=== PATIENT | female | born 1940 | race Caucasian/White ===

== ENCOUNTER → 2016-11-23 | Outpatient (CLI) | payer OTHER ==
[~2016-11-23] MED LIST: AMLO-110 PO; APR25 PO; ASCO10003 PO; ASPI81TA28 PO; CALC-5 PO; CLOP1TAB15 PO; CRAN1CAP15 PO; ISOS30TA3 PO; LACT1CAP6 PO; LOSA50TA6 PO; METO25TA56 PO; MULT-506 PO; NTRGSL/4 UT; OMEG12006 PO; ROSU40TA PO; TYLOTC500 PO
[2016-11-23 17:02] LABS: BLOOD UREA NITROGEN 16 mg/dl (7-18); BUN/CREATININE RATIO 14.2 (10-20); CALCIUM 9.6 mg/dl (8.5-10.1); CARBON DIOXIDE 30 mmol/L (21-32); CHLORIDE 102 mmol/L (98-107); GLUCOSE 160 mg/dl (70-99); POTASSIUM 3.7 mmol/L (3.5-5.1); SODIUM 141 mmol/L (136-145)
== END | disposition home or self-care (01) ==
LOC: C.LABBFT 16:49
PROVIDERS: ATTEND Internal Medicine Cardiovascular Disease
DX: N28.9 Disorder of kidney and ureter, unspecified (principal)

== ENCOUNTER → 2017-02-15 | Outpatient (CLI) | payer OTHER | END | disposition home or self-care (01) | LOC: C.LABSPEC 13:15 | PROVIDERS: ATTEND Physician Assistant Medical | DX: A04.7 Enterocolitis due to Clostridium difficile (principal) ==

== ENCOUNTER → 2017-02-18 | Outpatient (CLI) | payer OTHER ==
--- NOTE | 2017-02-18 13:11 | MAMMOGRAPHY REPORT ---
BILATERAL DIGITAL SCREENING MAMMOGRAM WITH CAD: 02/18/2017 CLINICAL HISTORY: Routine screening. Patient has no complaints. TECHNIQUE: Current study was also evaluated with a Computer Aided Detection (CAD) system. Bilatera l CC and MLO views were obtained. COMPARISON: Comparison is made to exams dated: 02/16/2016 mammogram, 02/13/2015 mammogram, 02/01/2014 mammogram, 01/29/2013 mammogram, 01/24/2012 mammogram, and 01/20/2011 mammogram - [facility] enter. BREAST COMPOSITION: The tissue of both breasts is almost entirely fatty. FINDINGS: No suspicious masses, calcifications, or areas of architectural distortion are noted in e ither breast. There has been no significant interval change compared to prior exams. Scattered bilat eral benign-appearing calcifications are not significantly changed. IMPRESSION: ACR BI-RADS CATEGORY 2: BENIGN There is no mammographic evidence of malignancy. A 1 year screening mammogram is recommended. The p atient will receive written notification of the results. Approximately 10% of breast cancers are not detected with mammography. A negative mammographic repor t should not delay biopsy if a clinically suggestive mass is present. Deisy Combs M.D. ah/:02/18/2017 12:23:31 E [employer] Strategist: Georgina MARTÍNEZ(Mckay)(Juan Manuel)(DAKSHA), [facility] letter sent: Normal 1/2 BI-RADS Code: ACR BI-RADS Category 2: Benign
== END | disposition home or self-care (01) ==
LOC: C.MAMM 10:25
PROVIDERS: ATTEND Internal Medicine
DX: Z12.31 Encounter for screening mammogram for malignant neoplasm of breast (principal)

== ENCOUNTER → 2017-03-01 | Outpatient (CLI) | payer OTHER | END | disposition home or self-care (01) | LOC: C.LABSPEC 12:33 | PROVIDERS: ATTEND Internal Medicine | DX: A04.7 Enterocolitis due to Clostridium difficile (principal) ==

== ENCOUNTER → 2017-03-17 | Outpatient (CLI) | payer OTHER ==
[2017-03-17 12:23] LABS: BASO ABS # 0.06 K/uL (0-0.2); COMPLETE YES; EOS % 4.3 %; HEMATOCRIT 41.7 % (37-47); IG% 0.2 %; LYMPH % 23.8 %; LYMPH ABS # 1.48 K/uL (1.2-3.4); MEAN CELL VOLUME 95.2 fL (80-100); MEAN CORPUSCULAR HEMOGLOBIN 31.3 pg (25-34); MEAN CORPUSCULAR HGB CONC 32.9 g/dl (32-36); MEAN PLATELET VOLUME 10.8 fL (7.4-10.4); MONO % 8.8 %; NEUT % 61.9 %; PLATELET COUNT 175 K/uL (130-400); RED BLOOD COUNT 4.38 M/uL (4.2-5.4); WHITE BLOOD COUNT 6.22 K/uL (4.8-10.8)
[2017-03-17 13:07] LABS: ESTIMATED AVERAGE GLUCOSE 128 mg/dl; HA1C FLAG Normal (Normal)
[2017-03-17 13:28] LABS: URINE APPEARANCE CLEAR (CLEAR); URINE BILIRUBIN NEG (NEG); URINE COLOR YELLOW; URINE NITRITE NEG (NEG); URINE SPECIFIC GRAVITY 1.024 (1.000-1.030); UROBILINOGEN NEG (NEG); ZZUR CULT IF INDIC CLEAN CATCH NO
[2017-03-17 13:29] LABS: MANUAL MICROSCOPIC REQUIRED? NO; REVIEW REQ? NO
[2017-03-17 13:45] LABS: ALB/GLOB RATIO 1.2 (0.9-2); ALKALINE PHOSPHATASE 57 U/L (45-117); ALT/SGPT 22 U/L (12-78); BLOOD UREA NITROGEN 15 mg/dl (7-18); CALCIUM 9.1 mg/dl (8.5-10.1); CARBON DIOXIDE 31 mmol/L (21-32); CHLORIDE 108 mmol/L (98-107); CHOLESTEROL 150 mg/dl (0-200); CHOLESTEROL/HDL RATIO 2.4; CREATININE 0.87 mg/dl (0.60-1.20); GLUCOSE 98 mg/dl (70-99); HDL CHOLESTEROL 63 mg/dl; POTASSIUM 3.9 mmol/L (3.5-5.1); SODIUM 142 mmol/L (136-145)
[2017-03-17 14:00] LABS: AST/SGOT 17 U/L (15-37); LDL CHOLESTEROL CALCULATED 64 mg/dl; TRIGLYCERIDES 115 mg/dl (0-150); VERY LOW DENSITY LIPOPROT CALC 23 mg/dl
== END | disposition home or self-care (01) ==
LOC: C.LABBFT 09:17
PROVIDERS: ATTEND Internal Medicine
DX: I25.10 Atherosclerotic heart disease of native coronary artery without angina pectoris (principal); R73.9 Hyperglycemia, unspecified; E78.5 Hyperlipidemia, unspecified; M85.80 Other specified disorders of bone density and structure, unspecified site

== ENCOUNTER → 2017-04-29 | Outpatient (CLI) | payer OTHER ==
--- NOTE | 2017-04-29 10:15 | DIAGNOSTIC IMAGING REPORT ---
BILATERAL CAROTID DOPPLER STUDY HISTORY: Dizziness I65.29 Occlusion and stenosis of unspecified carotid artery COMPARISON: 04/22/2016 TECHNIQUE: Real-time, grayscale, and color Doppler sonography of the carotid arteries was performed. Imaging reviewed in the transverse and longitudinal planes. All measurements were calculated based on NASCET criteria. FINDINGS: Antegrade flow is seen in the bilateral vertebral arteries. The brachial pressures are hemodynamically similar. Moderate to significant plaque formation primarily of the left carotid system. The peak systolic velocity within the right ICA is 78. The right systolic ratio is 1.2. The peak systolic velocity within the left ICA is 99. The left systolic ratio is 1.3 Increased velocities within the left external carotid artery similar to that of the prior exam.. IMPRESSION: No hemodynamically significant stenosis seen within the carotid arteries. Moderate stenosis left external carotid artery unchanged from the prior study. Electronically signed by: Onel Garcia M.D. 04/29/2017 10:14 AM Dictated Date/Time: 04/29/2017 10:11 AM
== END | disposition home or self-care (01) ==
LOC: C.ULTR 09:33
PROVIDERS: ATTEND Surgery
DX: I65.22 Occlusion and stenosis of left carotid artery (principal)

== ENCOUNTER → 2017-06-09 | Outpatient (CLI) | payer OTHER | END | disposition home or self-care (01) | LOC: C.LABBFT 10:05 | PROVIDERS: ATTEND Physician Assistant Medical | DX: N39.0 Urinary tract infection, site not specified (principal) ==

== ENCOUNTER → 2017-10-03 | Outpatient (CLI) | payer OTHER ==
[2017-10-03 12:54] LABS: ESTIMATED AVERAGE GLUCOSE 123 mg/dl; HA1C FLAG Normal (Normal)
== END | disposition home or self-care (01) ==
LOC: C.LABBFT 09:02
PROVIDERS: ATTEND Internal Medicine
DX: R73.03 Prediabetes (principal)

== ENCOUNTER → 2017-12-13 | Outpatient (CLI) | payer OTHER | END | disposition home or self-care (01) | LOC: C.PATHSPEC 16:32 | PROVIDERS: ATTEND Dermatology | DX: L57.0 Actinic keratosis (principal); L57.8 Other skin changes due to chronic exposure to nonionizing radiation ==

== ENCOUNTER → 2018-01-16 | Outpatient (CLI) | payer OTHER ==
[~2018-01-16] MED LIST changes: +HYDR-4716 PO
== END | disposition home or self-care (01) ==
LOC: C.LABBFT 10:29
PROVIDERS: ATTEND Physician Assistant Medical
DX: R39.9 Unspecified symptoms and signs involving the genitourinary system (principal)

== ENCOUNTER 2018-01-18 17:34 | Emergency (ER) | payer OTHER ==
[~2018-01-18] VITALS: Ht 160 cm; Wt 67.0 kg
[~2018-01-18 17:34] MED LIST changes: -HYDR-4716 PO
[2018-01-18 17:49] VITALS: TEMP 36.5; Ht 160 cm; Wt 67.0 kg
--- NOTE | 2018-01-18 18:12 | EMERGENCY ROOM VISIT NOTE ---
History Report prepared by Cass: Rodger Greer Under the Supervision of: Dr. Raheem Montaño M.D. First contact with patient: 17:53 Chief Complaint: URINARY SYMPTOMS Stated Complaint: UTI History of Present Illness The patient is a 77 year old female who presents to the Emergency Room with complaints of abnormal urinary symptoms that began two days ago. She has a past medical history of urinary tract infections and recently treated herself with Macrobid. A couple weeks ago, the patient was experiencing some urinary burning and frequency. She had a refill available from a prior prescription which she filled and treated herself. After this, her symptoms persisted with associated headache and chills. She received a urine culture today, which showed three organisms that were thought to be skin trnug. She denies any fevers. She is having some transverse mid back pain that she states could be her arthritis and some generalized weakness. Source of History: patient Onset: two days ago Position: other () Symptom Intensity: moderate Quality: other (Abnormal urinary symptoms) Timing: constant Associated Symptoms: + chills, + headache, + back pain, + weakness ( generalized), No fevers Note: She is experiencing urinary burning and frequency. Review of Systems See HPI for pertinent positives & negatives. A total of 10 systems reviewed and were otherwise negative. Past Medical & Surgical Medical Problems: (1) H/O Heart stent (2) Hypertension (3) UTI (urinary tract infection) Surgical Problems: (1) H/O carotid endarterectomy Old medical records were reviewed. Nurse's notes were reviewed and I agree with. Family History FH: HTN (hypertension) FH: cancer FH: heart disease Social History Smoking Status: Never Smoker Alcohol Use: none Marital Status: Occupation Status: retired Current/Historical Medications Scheduled Amlodipine (Norvasc), 5 MG PO QAM Ascorbic Acid (Vitamin C), 1,000 MG PO QPM Aspirin (Aspirin Ec), 81 MG PO QPM Calcium-Magnesium W/ Vitamin D (Calcium 500), 1,000 MG PO DAILY Clopidogrel (Plavix), 75 MG PO QAM Cranberry-Vitamin C-Vitamin E (Cranberry), 1 CAP PO QAM Hydralazine Hcl (Apresoline), 12.5 MG PO BID Isosorbide Mononitrate Ext Rel (Imdur Ext Rel), 30 MG PO BID Lactobacillus (Probiotic), 1 CAP PO QAM Losartan Potassium (Cozaar), 1 TAB PO DAILY Metoprolol Tartrate (Lopressor) (Lopressor), 25 MG PO BID Multivitamin (Multivitamin), 1 TAB PO DAILY [place]-3 Fatty Acids ([place] 3), 1,000 MG PO QPM Rosuvastatin Calcium (Crestor), 40 MG PO QPM Scheduled PRN Acetaminophen (Tylenol), 500-1,000 MG PO BID PRN for Pain Nitroglycerin (Nitrostat), 0.4 MG UT UD PRN for Chest Pain Allergies Coded Allergies: Penicillins (Verified Allergy, Mild, 11/16/16) Sulfa Antibiotics (Verified Allergy, Mild, unknown, 11/16/16) Alendronate (Verified Allergy, Unknown, ., 11/16/16) Atorvastatin (Verified Allergy, Unknown, MUSCLE ACHES, 11/16/16) Cephalexin (Verified Allergy, Unknown, UNKNOWN, 11/19/16) Ibandronic Acid (Verified Allergy, Unknown, ., 11/16/16) Ciprofloxacin (Verified Adverse Reaction, Unknown, N/V, 11/16/16) Physical Exam Vital Signs Date Time Temp Pulse Resp B/P (MAP) Pulse Ox O2 Delivery O2 Flow Rate FiO2 01/18/18 20:44 68 151/62 94 01/18/18 19:31 61 161/74 94 Room Air 01/18/18 17:49 36.5 65 18 181/88 94 Room Air Physical Exam General: Non-ill appearing older female in no acute distress. HEENT: Normal cephalic atraumatic. Pupils are equal round and reactive to light. Extraocular movements are intact. Oropharynx is pink with moist mucous membranes. No swelling of the mouth lips or tongue. Neck: Supple with a midline trachea. No meningeal signs or stiffness, no JVD or bruits. No Stridor. Chest: Clear to auscultation bilaterally. No wheezes or rhonchi. No increased work of breathing. Heart: regular rate and rhythm. Abdomen: Soft nontender, nondistended without rebound guarding or rigidity. Extremities: No cyanosis clubbing or edema. No calf tenderness or assymetry Spine/Back. Non tender to palpation. No CVA tenderness Skin: Good turgor without rashes. Neurologic exam: Cranial nerves two through 12 are intact. Motor and sensation are intact and symmetrical throughout. Medical Decision & Procedures ER Provider Diagnostic Interpretation: Radiology results as stated below per my review and radiologist interpretation: CT SCAN OF THE ABDOMEN AND PELVIS WITHOUT CONTRAST CLINICAL HISTORY: Flank pain. Urinary tract infection. COMPARISON STUDY: No previous studies for comparison. TECHNIQUE: CT scan of the abdomen and pelvis was performed from the lung bases to the proximal femurs. Images are reviewed in the axial, sagittal, and coronal planes. IV contrast was not administered for this examination. A dose lowering technique was utilized adhering to the principles of ALARA. CT DOSE: 596.94 mGy.cm FINDINGS: Lower chest: There are coronary artery calcifications. There are no pleural effusions. There is minor basilar atelectasis. There is a small hiatal hernia. Liver: There is a 9 mm hypodensity within the right hepatic lobe. There is a 9 mm hypodensity within the left hepatic lobe. Gallbladder: Mildly distended. No calculi identified Spleen: Normal in size and attenuation. Pancreas: Unremarkable. Adrenal glands: Unremarkable. Kidneys: No renal, ureteral, or bladder calculi are visualized. There are 2 left renal cysts measuring 22 mm and 36 mm respectively. Bowel: There are no transition zone to indicate bowel obstruction. There is colonic diverticulosis. There is no acute peridiverticular inflammatory change. The appendix appears normal. Peritoneum: There is no intraperitoneal free air or abdominal ascites. Vasculature: The abdominal aorta is normal in course and caliber. Adenopathy: None. Pelvic viscera: There is a 2 cm left ovarian cyst. Skeletal structures: No destructive osseous lesions are seen. IMPRESSION: 1. No renal, ureteral, or bladder calculi identified 2. Left renal cysts 3. No evidence of bowel obstruction. No evidence of free air 4. Diverticulosis. No evidence of acute diverticulitis 5. Normal appendix 6. 2 cm left ovarian cyst 7. Too small to characterize subcentimeter hepatic hypodensities Electronically signed by: Carson Suarez M.D. 01/18/2018 7:29 PM Dictated Date/Time: 01/18/2018 7:23 PM Laboratory Results 01/18/18 19:07 Red Blood Count 4.60, Mean Corpuscular Volume 93.7, Mean Corpuscular Hemoglobin 31.7, Mean Corpuscular Hemoglobin Concent 33.9, Mean Platelet Volume 11.0, Neutrophils (%) (Auto) 61.6, Lymphocytes (%) (Auto) 27.1, Monocytes (%) (Auto) 8.2, Eosinophils (%) (Auto) 2.1, Basophils (%) (Auto) 0.8, Neutrophils # (Auto) 4.04, Lymphocytes # (Auto) 1.78, Monocytes # (Auto) 0.54, Eosinophils # (Auto) 0.14, Basophils # (Auto) 0.05 01/18/18 19:07 Test 01/18/18 18:30 01/18/18 19:07 Urine Color YELLOW Urine Appearance CLEAR (CLEAR) Urine pH 6.5 (4.5-7.5) Urine Specific [place] 1.005 (1.000-1.030) Urine Protein NEG (NEG) Urine Glucose (UA) NEG (NEG) Urine Ketones NEG (NEG) Urine Occult Blood NEG (NEG) Urine Nitrite NEG (NEG) Urine Bilirubin NEG (NEG) Urine Urobilinogen NEG (NEG) Urine Leukocyte Esterase TRACE (NEG) Urine WBC (Auto) 1-5 /hpf (0-5) Urine RBC (Auto) 0-4 /hpf (0-4) Urine Hyaline Casts (Auto) 0 /lpf (0-5) Urine Epithelial Cells (Auto) 5-10 /lpf (0-5) Urine Bacteria (Auto) NEG (NEG) White Blood Count 6.56 K/uL (4.8-10.8) Red Blood Count 4.60 M/uL (4.2-5.4) Hemoglobin 14.6 g/dL (12.0-16.0) Hematocrit 43.1 % (37-47) Mean Corpuscular Volume 93.7 fL (80-100) Mean Corpuscular Hemoglobin 31.7 pg (25-34) Mean Corpuscular Hemoglobin Concent 33.9 g/dl (32-36) Platelet Count 154 K/uL (130-400) Mean Platelet Volume 11.0 fL (7.4-10.4) Neutrophils (%) (Auto) 61.6 % Lymphocytes (%) (Auto) 27.1 % Monocytes (%) (Auto) 8.2 % Eosinophils (%) (Auto) 2.1 % Basophils (%) (Auto) 0.8 % Neutrophils # (Auto) 4.04 K/uL (1.4-6.5) Lymphocytes # (Auto) 1.78 K/uL (1.2-3.4) Monocytes # (Auto) 0.54 K/uL (0.11-0.59) Eosinophils # (Auto) 0.14 K/uL (0-0.5) Basophils # (Auto) 0.05 K/uL (0-0.2) RDW Standard Deviation 45.3 fL (36.4-46.3) RDW Coefficient of Variation 13.3 % (11.5-14.5) Immature Granulocyte % (Auto) 0.2 % Immature Granulocyte # (Auto) 0.01 K/uL (0.00-0.02) Prothrombin Time 10.4 SECONDS (9.0-12.0) Prothromb Time International Ratio 1.0 (0.9-1.1) Activated Partial Thromboplast Time 27.3 SECONDS (21.0-31.0) Partial Thromboplastin Ratio 1.1 Anion Gap 3.0 mmol/L (3-11) Est Creatinine Clear Calc Drug Dose 46.6 ml/min Estimated GFR () 70.5 Estimated GFR (Non- 60.8 BUN/Creatinine Ratio 17.3 (10-20) Calcium Level 9.4 mg/dl (8.5-10.1) Total Bilirubin 0.4 mg/dl (0.2-1) Direct Bilirubin 0.1 mg/dl (0-0.2) Aspartate Amino Transf (AST/SGOT) 19 U/L (15-37) Alanine Aminotransferase (ALT/SGPT) 21 U/L (12-78) Alkaline Phosphatase 63 U/L (45-117) Total Protein 7.9 gm/dl (6.4-8.2) Albumin 4.5 gm/dl (3.4-5.0) Lipase 238 U/L (73-393) Laboratory studies as stated above per my review. Medications Administered Medications (Trade) Dose Ordered Sig/Fátima Route Start Time Stop Time Status Last Admin Dose Admin Acetaminophen (Tylenol Tab) 650 mg NOW STAT PO 01/18/18 19:42 01/18/18 19:43 DC 01/18/18 20:20 650 MG Phenazopyridine HCl (Phenazopyridine HCl 200MG Home Pack) 1 homepack UD ONCE PO 01/18/18 20:30 01/18/18 20:31 DC 01/18/18 20:39 1 [facility] ED Course 1752: Past medical records reviewed. The patient was evaluated in room B7, and a complete history and physical examination were performed. 1843: I will be ordering some labs on the patient. 1941: Ordered Tylenol Tab 650 mg PO 1947: Upon reevaluation, the patient is feeling well. She is asking for food. 2009: Upon reevaluation, the patient is resting. I discussed the results and treatment plan with her. She verbalized agreement of the treatment plan. The patient was discharged home. Medical Decision Differentials include, but are not limited to; UTI, pyelonephritis, sepsis, anemia, and electrolyte or metabolic abnormality. This patient comes in as described above. He has had some urinary symptoms and is concerned about a UTI. She looks well on exam is afebrile. She had a urine culture 2 days ago which was negative. Her urine here shows some blood but no definite signs of infection. In light of this, I did order blood work as well as a CAT scan. She was reassessed frequently. She has multiple antibiotic allergies and history of C. difficile. Her urinalysis does not suggest UTI with a backup culture pending. CAT scan of the abdomen is unremarkable there are no acute findings specifically nothing to suggest diverticulitis appendicitis or stones or urologic process. She has no white count or fever to suggest infection. Her kidney function is normal there is nothing to suggest electrolyte or metabolic abnormalities or liver or gallbladder or pancreas disease. In regards to her dysuria, it may be more related to bladder spasm or mechanical factor. I did give her Pyridium home pack that she can use. I encouraged her to follow-up with either her doctor or [facility] urology and gave her the contact information for Dr. Solano who is the on-call urologist. She should return if any new problems or concerns. at this point, I do not find evidence that she needs antibiotics and given her multiple allergies and history of C. difficile, I do not want to prescribe antibiotics unnecessarily. The backup culture is pending at this point. She agrees with the plan as does her [id number] who is at the bedside. She will be discharged home and return if any new problems or concerns. Medication Reconcilliation Current Medication List: was personally reviewed by me Blood Pressure Screening Patient's blood pressure: Elevated blood pressure Blood pressure disposition: Referred to PCP Impression Primary Impression: Dysuria Scribe Attestation The scribe's documentation has been prepared under my direction and personally reviewed by me in its entirety. I confirm that the note above accurately reflects all work, treatment, procedures, and medical decision making performed by me. Departure Information Dispostion Home / Self-Care Referrals No Doctor, Assigned (PCP) Andrei Solano MD, Urology Forms HOME CARE DOCUMENTATION FORM, IMPORTANT VISIT INFORMATION Patient Instructions My [facility] Additional Instructions Rest. Drink plenty of fluids. Return if: Increasing pain, fever or chills, worsening symptoms, any new problems or concerns Follow up with either Dr. Shirley or [facility] urology, Dr. Solano, or his colleagues this week for recheck.
[2018-01-18 19:17] LABS: BASO % 0.8 %; BASO ABS # 0.05 K/uL (0-0.2); EOS % 2.1 %; EOS ABS # 0.14 K/uL (0-0.5); HEMATOCRIT 43.1 % (37-47); HEMOGLOBIN 14.6 g/dL (12.0-16.0); IG# 0.01 K/uL (0.00-0.02); LYMPH % 27.1 %; LYMPH ABS # 1.78 K/uL (1.2-3.4); MEAN CELL VOLUME 93.7 fL (80-100); MEAN CORPUSCULAR HEMOGLOBIN 31.7 pg (25-34); MEAN CORPUSCULAR HGB CONC 33.9 g/dl (32-36); MONO % 8.2 %; MONO ABS # 0.54 K/uL (0.11-0.59); NEUT % 61.6 %; NEUT ABS # 4.04 K/uL (1.4-6.5); PLATELET COUNT 154 K/uL (130-400); RED CELL DISTRIBUTION WIDTH CV 13.3 % (11.5-14.5); RED CELL DISTRIBUTION WIDTH SD 45.3 fL (36.4-46.3); WHITE BLOOD COUNT 6.56 K/uL (4.8-10.8)
[2018-01-18 19:26] LABS: PTT PATIENT 27.3 SECONDS (21.0-31.0)
--- NOTE | 2018-01-18 19:30 | DIAGNOSTIC IMAGING REPORT ---
CT SCAN OF THE ABDOMEN AND PELVIS WITHOUT CONTRAST CLINICAL HISTORY: Flank pain. Urinary tract infection. COMPARISON STUDY: No previous studies for comparison. TECHNIQUE: CT scan of the abdomen and pelvis was performed from the lung bases to the proximal femurs. Images are reviewed in the axial, sagittal, and coronal planes. IV contrast was not administered for this examination. A dose lowering technique was utilized adhering to the principles of ALARA. CT DOSE: 596.94 mGy.cm FINDINGS: Lower chest: There are coronary artery calcifications. There are no pleural effusions. There is minor basilar atelectasis. There is a small hiatal hernia. Liver: There is a 9 mm hypodensity within the right hepatic lobe. There is a 9 mm hypodensity within the left hepatic lobe. Gallbladder: Mildly distended. No calculi identified Spleen: Normal in size and attenuation. Pancreas: Unremarkable. Adrenal glands: Unremarkable. Kidneys: No renal, ureteral, or bladder calculi are visualized. There are 2 left renal cysts measuring 22 mm and 36 mm respectively. Bowel: There are no transition zone to indicate bowel obstruction. There is colonic diverticulosis. There is no acute peridiverticular inflammatory change. The appendix appears normal. Peritoneum: There is no intraperitoneal free air or abdominal ascites. Vasculature: The abdominal aorta is normal in course and caliber. Adenopathy: None. Pelvic viscera: There is a 2 cm left ovarian cyst. Skeletal structures: No destructive osseous lesions are seen. IMPRESSION: 1. No renal, ureteral, or bladder calculi identified 2. Left renal cysts 3. No evidence of bowel obstruction. No evidence of free air 4. Diverticulosis. No evidence of acute diverticulitis 5. Normal appendix 6. 2 cm left ovarian cyst 7. Too small to characterize subcentimeter hepatic hypodensities Electronically signed by: Carson Suarez M.D. 01/18/2018 7:29 PM Dictated Date/Time: 01/18/2018 7:23 PM
[2018-01-18 19:41] LABS: ALBUMIN 4.5 gm/dl (3.4-5.0); CALCIUM 9.4 mg/dl (8.5-10.1); CREATININE 0.9 mg/dl (0.60-1.20)
[2018-01-18 19:44] LABS: TOTAL PROTEIN 7.9 gm/dl (6.4-8.2)
[2018-01-18] MEDS: ACETAMINOPHEN 325 MG TAB PO STA (20:20)
[2018-01-18] MEDS: PHENAZOPYRIDINE HOME PACK 200 MG VIAL PO ONE (20:39)
[2018-01-18 20:44] VITALS: BP 151/62; PULSE 68; O2SAT 94
== END 2018-01-18 20:45 | disposition home or self-care (01) ==
LOC: C.EDB 17:35
DX: R30.0 Dysuria (principal); I10 Essential (primary) hypertension; Z82.49 Family history of ischemic heart disease and other diseases of the circulatory system; Z88.0 Allergy status to penicillin; Z88.8 Allergy status to other drugs, medicaments and biological substances

== ENCOUNTER 2018-01-22 08:58 | Observation (INO) | payer OTHER ==
[2018-01-22] VITALS (8 sets, daily range): BP systolic 92–164; BP diastolic 51–88; PULSE 55–76; TEMP 36.6–36.9; O2SAT 93–97; Ht 165.1 cm; Wt 65.4 kg
[~2018-01-22] VITALS: Ht 165.1 cm; Wt 65.4 kg
[2018-01-22 09:34] LABS: BASO % 0.8 %; BASO ABS # 0.06 K/uL (0-0.2); EOS % 1.8 %; EOS ABS # 0.13 K/uL (0-0.5); IG# 0.02 K/uL (0.00-0.02); LYMPH % 23.6 %; LYMPH ABS # 1.67 K/uL (1.2-3.4); MEAN CORPUSCULAR HEMOGLOBIN 31.7 pg (25-34); MEAN CORPUSCULAR HGB CONC 34.1 g/dl (32-36); MEAN PLATELET VOLUME 10.9 fL (7.4-10.4); MONO % 8.5 %; NEUT ABS # 4.59 K/uL (1.4-6.5); PLATELET COUNT 169 K/uL (130-400); RED CELL DISTRIBUTION WIDTH CV 13.2 % (11.5-14.5); RED CELL DISTRIBUTION WIDTH SD 45.2 fL (36.4-46.3); WHITE BLOOD COUNT 7.07 K/uL (4.8-10.8)
--- NOTE | 2018-01-22 09:39 | EMERGENCY ROOM VISIT NOTE ---
History Report prepared by Cass: Michael Torres Under the Supervision of: Dr. Rasta Zamarripa D.O. First contact with patient: 09:11 Chief Complaint: CHEST PAIN Stated Complaint: CHEST PAIN History of Present Illness The patient is a 77 year old female who presents to the Emergency Room with complaints of persistent chest pain starting around 0700 this morning. The patient states that she woke up not feeling well around 0600, and she states that she was sweaty. She then went down stairs and she took her blood pressure which was high. Then around 0700 she had chest burning, arm burning, and some shoulder pain. The patient notes that she then took a nitro, and this helped with the pain, then she took another nitro, and then after 15-20 minutes her pain was better. The patient notes that she has a history of heart problems, and she states that today was the first time taking nitro in a long time. She states that she saw cardiology last week for a check up, and she states that she has a history of aortic stenosis. The patient denies any shortness of breath , leg swelling, and abdominal pain. Source of History: patient Onset: 0700 Position: chest Quality: burning Timing: other (persistent) Modifying Factors (Relieving): other (nitro) Associated Symptoms: No SOB, No abdominal pain Review of Systems See HPI for pertinent positives & negatives. A total of 10 systems reviewed and were otherwise negative. Past Medical & Surgical Medical Problems: (1) chest pain rule out (2) H/O Heart stent (3) Hypertension (4) UTI (urinary tract infection) Surgical Problems: (1) H/O carotid endarterectomy Family History FH: HTN (hypertension) FH: cancer FH: heart disease Social History Smoking Status: Never Smoker Alcohol Use: none Marital Status: Occupation Status: retired Current/Historical Medications Scheduled Amlodipine (Norvasc), 5 MG PO QAM Ascorbic Acid (Vitamin C), 1,000 MG PO QPM Aspirin (Aspirin Ec), 81 MG PO QPM Calcium-Magnesium W/ Vitamin D (Calcium 500), 1,000 MG PO QAM Hydralazine HCl (Hydralazine HCl), 12.5 MG PO BID Isosorbide Mononitrate Ext Rel (Imdur Ext Rel), 30 MG PO BID Lactobacillus (Probiotic), 1 CAP PO QAM Metoprolol Tartrate (Lopressor) (Lopressor), 25 MG PO BID Multivitamin (Multivitamin), 1 TAB PO QAM Rosuvastatin Calcium (Crestor), 40 MG PO QPM Scheduled PRN Acetaminophen (Tylenol), 500-1,000 MG PO BID PRN for Pain Nitroglycerin (Nitrostat), 0.4 MG UT UD PRN for Chest Pain Allergies Coded Allergies: Penicillins (Verified Allergy, Mild, 01/22/18) Sulfa Antibiotics (Verified Allergy, Mild, unknown, 01/22/18) Alendronate (Verified Allergy, Unknown, ., 01/22/18) Atorvastatin (Verified Allergy, Unknown, MUSCLE ACHES, 01/22/18) Cephalexin (Verified Allergy, Unknown, UNKNOWN, 01/22/18) Ibandronic Acid (Verified Allergy, Unknown, ., 01/22/18) Ciprofloxacin (Verified Adverse Reaction, Unknown, N/V, 01/22/18) Physical Exam Vital Signs Date Time Temp Pulse Resp B/P (MAP) Pulse Ox O2 Delivery O2 Flow Rate FiO2 01/22/18 09:47 63 16 159/60 95 Room Air 01/22/18 09:22 96 Room Air 01/22/18 09:22 96 Room Air 01/22/18 09:16 36.7 69 18 163/68 96 Room Air 01/22/18 09:12 96 Room Air 01/22/18 09:07 65 Physical Exam GENERAL: Patient is awake, alert, and in no acute distress. Patient is resting comfortably and showing no signs of anxiety EYES: The conjunctivae are clear. The pupils are round and reactive. EARS, NOSE, MOUTH AND THROAT: The nose is without any evidence of any deformity. Mucous membranes are moist tongue is midline NECK: The neck is nontender and supple. RESPIRATORY: Normal respiratory effort is noted there is no evidence of wheezing rhonchi or rales CARDIOVASCULAR: Regular rate and rhythm noted to auscultation. Systolic murmur noted. GASTROINTESTINAL: The abdomen is soft. Bowel sounds are present in all quadrants. Abdomen is nontender MUSCULOSKELETAL/EXTREMITIES: There is no evidence of gross deformity full range of motion is noted in the hips and shoulders SKIN: There is trace pedal edema noted bilaterally. NEUROLOGIC: Patient is awake alert and oriented x3 Medical Decision & Procedures ER Provider Diagnostic Interpretation: Radiology results as stated below per my review and radiologist interpretation: SINGLE VIEW CHEST CLINICAL HISTORY: Atypical chest pain. FINDINGS: An AP, portable, upright chest radiograph is compared to study dated 11/16/2016. The cardiomediastinal silhouette is unremarkable. Atherosclerotic calcification is noted in the thoracic aorta. There is mild chronic elevation of the right hemidiaphragm. The lungs and pleural spaces are clear. No pneumothorax is seen. The skeletal structures are osteopenic. The bony thorax is grossly intact. IMPRESSION: No acute cardiopulmonary abnormality. Electronically signed by: Colin Santana M.D. 01/22/2018 9:35 AM Dictated Date/Time: 01/22/2018 9:35 AM Laboratory Results 01/22/18 08:55 Red Blood Count 4.41, Mean Corpuscular Volume 93.0, Mean Corpuscular Hemoglobin 31.7, Mean Corpuscular Hemoglobin Concent 34.1, Mean Platelet Volume 10.9, Neutrophils (%) (Auto) 65.0, Lymphocytes (%) (Auto) 23.6, Monocytes (%) (Auto) 8.5, Eosinophils (%) (Auto) 1.8, Basophils (%) (Auto) 0.8, Neutrophils # (Auto) 4.59, Lymphocytes # (Auto) 1.67, Monocytes # (Auto) 0.60, Eosinophils # (Auto) 0.13, Basophils # (Auto) 0.06 01/22/18 08:55 Test 01/22/18 08:55 01/22/18 10:10 White Blood Count 7.07 K/uL (4.8-10.8) Red Blood Count 4.41 M/uL (4.2-5.4) Hemoglobin 14.0 g/dL (12.0-16.0) Hematocrit 41.0 % (37-47) Mean Corpuscular Volume 93.0 fL (80-100) Mean Corpuscular Hemoglobin 31.7 pg (25-34) Mean Corpuscular Hemoglobin Concent 34.1 g/dl (32-36) Platelet Count 169 K/uL (130-400) Mean Platelet Volume 10.9 fL (7.4-10.4) Neutrophils (%) (Auto) 65.0 % Lymphocytes (%) (Auto) 23.6 % Monocytes (%) (Auto) 8.5 % Eosinophils (%) (Auto) 1.8 % Basophils (%) (Auto) 0.8 % Neutrophils # (Auto) 4.59 K/uL (1.4-6.5) Lymphocytes # (Auto) 1.67 K/uL (1.2-3.4) Monocytes # (Auto) 0.60 K/uL (0.11-0.59) Eosinophils # (Auto) 0.13 K/uL (0-0.5) Basophils # (Auto) 0.06 K/uL (0-0.2) RDW Standard Deviation 45.2 fL (36.4-46.3) RDW Coefficient of Variation 13.2 % (11.5-14.5) Immature Granulocyte % (Auto) 0.3 % Immature Granulocyte # (Auto) 0.02 K/uL (0.00-0.02) Prothrombin Time 10.2 SECONDS (9.0-12.0) Prothromb Time International Ratio 1.0 (0.9-1.1) Activated Partial Thromboplast Time 25.7 SECONDS (21.0-31.0) Partial Thromboplastin Ratio 1.0 Anion Gap 6.0 mmol/L (3-11) Est Creatinine Clear Calc Drug Dose 45.1 ml/min Estimated GFR () 69.5 Estimated GFR (Non- 60.0 BUN/Creatinine Ratio 18.1 (10-20) Calcium Level 9.6 mg/dl (8.5-10.1) Total Bilirubin 0.5 mg/dl (0.2-1) Direct Bilirubin 0.1 mg/dl (0-0.2) Aspartate Amino Transf (AST/SGOT) 16 U/L (15-37) Alanine Aminotransferase (ALT/SGPT) 19 U/L (12-78) Alkaline Phosphatase 56 U/L (45-117) Total Protein 7.5 gm/dl (6.4-8.2) Albumin 3.9 gm/dl (3.4-5.0) Lipase 205 U/L (73-393) Urine Color YELLOW Urine Appearance CLEAR (CLEAR) Urine pH 5.0 (4.5-7.5) Urine Specific [place] 1.008 (1.000-1.030) Urine Protein NEG (NEG) Urine Glucose (UA) NEG (NEG) Urine Ketones NEG (NEG) Urine Occult Blood NEG (NEG) Urine Nitrite NEG (NEG) Urine Bilirubin NEG (NEG) Urine Urobilinogen NEG (NEG) Urine Leukocyte Esterase TRACE (NEG) Urine WBC (Auto) 1-5 /hpf (0-5) Urine RBC (Auto) 0-4 /hpf (0-4) Urine Hyaline Casts (Auto) 0 /lpf (0-5) Urine Epithelial Cells (Auto) 5-10 /lpf (0-5) Urine Bacteria (Auto) NEG (NEG) Laboratory results per my review. ECG Per My Interpretation Indication: chest pain Rate (beats per minute): 69 Findings: PVC (frequent), other (No acute ST segment abnormality) Comparison ECG Date: 11/16/16 ED Course 0911: The patient was evaluated in room B12. A complete history and physical examination were performed. 1007: I reevaluated the patient, and I discussed the treatment plan with her, and she was agreeable. 1018: I discussed the patient's case with Dr. Louann Garcia. The patient will be evaluated for further management. Medical Decision Differential diagnosis: Etiologies such as cardiac ischemia, aortic dissection, pulmonary embolism, pneumonia, pneumothorax, musculoskeletal, infections, pericarditis, myocarditis , esophageal rupture, gastrointestinal, as well as others were entertained. Nursing notes reviewed. The patient is a 77-year-old female who presented to the emergency department for an evaluation of chest discomfort. She describes the chest pain as a burning sensation on the left side with radiation to the left shoulder. The patient does have a history of coronary artery disease and took nitroglycerin prior to arrival. She had to take 2 doses of nitroglycerin but her pain was resolved upon arrival to the emergency department. She was also given aspirin by the prehospital personnel. I discussed patient's laboratory and radiographic studies with her. I also discussed the limitations of the emergency department workup for chest pain with her. Given her age and comorbidities especially her history of aortic stenosis I will discuss this case with the on-call [facility] hospitalist group for evaluation and possible inpatient management. Medication Reconcilliation Current Medication List: was personally reviewed by me Blood Pressure Screening Patient's blood pressure: Elevated blood pressure Monitored by the hospitalist Consults Time Called: 1008 Consulting Physician: Dr. Louann Walshist Returned Call: 1018 I discussed the patient's case with Dr. Louann Garcia. The patient will be evaluated for further management. Impression Primary Impression: Exertional chest pain Scribe Attestation The scribe's documentation has been prepared under my direction and personally reviewed by me in its entirety. I confirm that the note above accurately reflects all work, treatment, procedures, and medical decision making performed by me. Departure Information Dispostion Being Evaluated By Hospitalist Referrals Maximino Shirley M.D. (PCP) Patient Instructions [facility]
[2018-01-22 09:41] LABS: ALBUMIN 3.9 gm/dl (3.4-5.0); ALT/SGPT 19 U/L (12-78); BLOOD UREA NITROGEN 17 mg/dl (7-18); CALCIUM 9.6 mg/dl (8.5-10.1); CARBON DIOXIDE 29 mmol/L (21-32); CREATININE 0.91 mg/dl (0.60-1.20); GLUCOSE 108 mg/dl (70-99); LIPASE 205 U/L (73-393); POTASSIUM 3.9 mmol/L (3.5-5.1); SODIUM 138 mmol/L (136-145)
[2018-01-22 09:46] LABS: ALKALINE PHOSPHATASE 56 U/L (45-117); AST/SGOT 16 U/L (15-37); TOTAL PROTEIN 7.5 gm/dl (6.4-8.2)
[2018-01-22 09:53] LABS: PTT PATIENT 25.7 SECONDS (21.0-31.0)
[2018-01-22] MEDS ORDERED: HYDR-4716 PO (10:30)
[2018-01-22] MEDS ORDERED: ALUMINUM/MAGNESIUM/SIMETH (MAALOX MAX) 30 ML UDC PO PRN (10:45)
[2018-01-22] MEDS ORDERED: ONDANSETRON INJ 2 MG/ML 2 ML VIAL IV PRN (10:45)
[2018-01-22] MEDS ORDERED: POLYETHYLENE (MIRALAX) 17 GM PACK PO PRN (10:45)
[2018-01-22] MEDS ORDERED: ACETAMINOPHEN 325 MG TAB PO PRN (10:45)
[2018-01-22] MEDS ORDERED: MAGNESIUM HYDROXIDE SUSP 30 ML UDC PO PRN (10:45)
[2018-01-22] MEDS ORDERED: ZOLPIDEM TARTRATE 5 MG TAB PO PRN (10:45)
[2018-01-22] MEDS ORDERED: NITROGLYCERIN 0.4 MG SL PER TAB CHARGE SL PRN (10:45)
[2018-01-22] MEDS ORDERED: MoRPHine SULFATE 2 MG/ML CARP IV PRN (10:45)
--- NOTE | 2018-01-22 10:52 | History and Physical ---
History & Physical Date of Service Jan 22, 2018. History & Physical chest pain rule out.[id number]
--- NOTE | 2018-01-22 12:56 | HISTORY & PHYSICAL EXAMINATION ---
DATE OF ADMISSION: 01/22/2018 This is a level 2 observation H&P, 31 minutes. CHIEF COMPLAINT: Chest pain. HISTORY OF PRESENT ILLNESS: The patient is a 77-year-old white female with a significant history of CAD, stent x4, hypertension, UTI, aortic stenosis, history of carotid endarterectomy, coming to the hospital Emergency Department because of the above chief complaint. The patient reported she was having persistent chest pain when she woke up this morning, actually that was not real chest pain, was left arm pain with radiation to left shoulder, the pain level was 8/10. It was lasting 30 minutes and then she started to give herself 1 dose of nitro. The pain went away, after 15 minutes later, the pain recurred, she gave her another dose of nitro, which also helped, and then she called 911. During the episodes, she was not feeling any dizziness or palpitations; however, she was feeling tired, weak, and sweating. Denied nausea or vomiting, denied diarrhea or constipation, denied facial droop, slurry speeches or local weakness. Denied cough, sputum, shortness of breath or wheezing, patient do report she has a feeling of dysuria and burning sensation when urination, She was seen in this Emergency Room 3 days ago, UA was not remarkable. Currently, she still has the same level of dysuria. Denied fever and chills. In the Emergency Room, EKG was not remarkable. The patient is awake, alert, and orientated. PAST MEDICAL HISTORY: Like I mentioned, includes CAD, stent, aortic valve stenosis is pending for TAVR in [facility], hypertension, UTI, history of carotid endarterectomy, history of dyslipidemia. PAST SURGICAL HISTORY: Include carotid endarterectomy. FAMILY HISTORY: Include hypertension, cancer and heart disease. SOCIAL HISTORY: Never smoked. Denied alcohol abuse disorder, denied illicit drug abuse. MEDICATIONS: Currently taking at home include amlodipine 5 mg p.o. q.a.m., vitamin C 1000 mg p.o. q.p.m., aspirin 81 mg p.o. q.p.m., Calcium with vitamin D 1000 mg p.o. q.a.m., hydralazine 12.5 mg p.o. b.i.d., Imdur 30 mg p.o. b.i.d., probiotic, lactobacillus 1 cap p.o. q.a.m., Lopressor 25 mg p.o. b.i.d., multiple vitamin 1 tab p.o. q.a.m., Crestor 40 mg p.o. q.p.m., Tylenol 500-1000 mg p.o. b.i.d. p.r.n. for pain, nitroglycerin 0.4 mg use as directed p.r.n. for the chest pain. ALLERGIES: PENICILLIN, SULFA, ALENDRONATE, ATORVASTATIN, KEFLEX, CIPRO, IBANDRONIC ACID. PHYSICAL EXAMINATION: VITAL SIGNS: Temperature 36.7, pulse 63, respiratory rate 18, blood pressure 159/60, pulse ox was 96% in room air. GENERAL: The patient is a white female, awake, alert and orientated, conversational, follows all commands. HEAD: Normocephalic. EYES: Pupils equal and round, responds to light. Sclerae nonicterus. EARS: Normal. NOSE: Normal. NECK: Supple. Thyroid no enlargement. Trachea midline. LUNGS: Decreased breathing sounds. There were no wheezing, rhonchi or crackles. HEART: Regular rhythm S1, S2, has systolic murmur 4/6. ABDOMEN: Soft, nontender. Bowel sound was positive. GENITOURINARY AND RECTAL: Deferred. MUSCULOSKELETAL SYSTEM: No limited range of motion. No range of motion. No edema. SKIN: Normal. NEUROLOGICAL EVALUATION: Awake, alert and orientated. Cranial nerves II-XII was intact. IMAGING STUDIES: Chest x-ray, no acute abnormalities. LABORATORY STUDIES: WBC 7, hemoglobin 14, platelet was 159. BUN 17, creatinine 0.9. Sodium 138, potassium 3.9, blood glucose 108. EKG normal sinus rhythm. There were no ST-T phase changes. ASSESSMENT. This is a 77-year-old white female with the conditions, see below. 1. Chest pain resolved by nitro with history of coronary artery disease, four stents. 2. History of aortic valve stenosis, is pending for possible transcatheter aortic valve replacement. 3. Accelerated hypertension. 4. Dyslipidemia. 5. Dysuria. PLAN: 1. The patient seems to have typical chest pain with history of coronary artery disease, stent. The chest pain resolved after nitro. Currently, cardiac enzyme troponin was negative x1 set. EKG has no obvious changes. She typically possibly have angina episodes. We will keep her on observation, cardiac enzyme troponin x2 set more, tele monitor. Because the patient has a history of stent and pending for TAVR, I will request patient's cardiology to see the patient and plan for the next step such as stress test or angiography by cardiac catheterization, and then will go from there. We will continue patient's beta rossi, calcium channel rossi, aspirin and Crestor for the secondary prevention of CAD. We will watch more closely the hypertension because she was having mild accelerated hypertension when she arrived into the Emergency Room. 2. Dysuria. Recent UA was not remarkable, but she still has symptom. I discussed about antibiotic treatment. The patient hesitated to start antibiotic because she has history of C. diff and has multiple antibiotic allergies. will check UA again and then will make decisions and then we will go from there, I agreed. 3. History of aortic valve stenosis, is pending for TAVR. 4. Discussed with patient and son at bedside about conditions and care plan, I answered all the questions, patient is full code, DVT prophylaxis is covered. ELSIE
[2018-01-22] MEDS ORDERED: DC ALL ANTICOAGULANTS ONE (14:00)
--- NOTE | 2018-01-22 14:11 | Cardiology Consultation ---
Cardiology Consultation Date of Service Jan 22, 2018. Cardiology Consultation Indication: Consultation for chest pain History: This is a 77-year-old female who has an extensive cardiac history with multiple coronary stents which are listed below under the problem list. Yesterday she had chest discomfort that was relieved on 2 occasions with sublingual nitroglycerin. The second episode took a little longer and she became concerned and came to the emergency department. Her initial EKG shows no acute changes and her first set of cardiac markers are within normal limits. She currently is pain-free. In addition to her coronary artery disease she does have a history of aortic stenosis and recently had a follow-up echocardiogram completed. This study shows progression in her aortic stenosis to severe. She also had an outpatient Holter that showed some ventricular ectopy which was asymptomatic. Allergies: Multiple antibiotic allergies Reported Home Medications Medications Dose Route/Sig Max Daily Dose Days Date Category Hydralazine HCl 25 Mg Tab 12.5 Mg PO BID 01/22/18 Reported Crestor (Rosuvastatin Calcium) 40 Mg Tab 40 Mg PO QPM 10/27/16 Reported Vitamin C (Ascorbic Acid) 1,000 Mg Tab 1,000 Mg PO QPM 05/19/16 Reported Probiotic (Lactobacillus) 1 Cap Cap 1 Cap PO QAM 05/19/16 Reported Calcium 500 (Calcium-Magnesium W/ Vitamin D) 1 Tab Tab 1,000 Mg PO QAM 05/19/16 Reported Lopressor (Metoprolol Tartrate) 25 Mg Tab 25 Mg PO BID 05/19/16 Reported Aspirin Ec (Aspirin) 81 Mg Tab 81 Mg PO QPM 05/19/16 Reported Multivitamin (Multivitamins) Tab 1 Tab PO QAM 08/01/15 Reported Imdur Ext Rel (Isosorbide Mononitrate) 30 Mg Ertab 30 Mg PO BID 04/15/15 Reported Tylenol (Acetaminophen) 500 Mg Tab 500-1,000 Mg PO BID PRN 11/12/12 Reported Nitrostat (Nitroglycerin) 0.4 Mg Tab 0.4 Mg UT UD PRN 09/21/09 Reported Norvasc (Amlodipine Besylate) 5 Mg Tab 5 Mg PO QAM 09/04/09 Reported Problem List: ASCVD Presentation with crescendo angina in August 2009 with catheterization demonstrating a 90% proximal LAD stenosis s/p 09/04/2009 PCI of the LAD at [facility] with two overlapping [place] drug eluting stents. Atypical chest pain and abnormal Lexiscan nuclear stress testing in 2014 lead to June 2015 catheterization, PCI of the distal RCA with a 2.75 X 12 mm Xience drug eluting stent and PCI of the mid RCA with a 3 X 18 mm Xience drug eluting stent via right radial artery access. Presentation to [facility] [place] with burning chest pressure radiating down the left arm in October 2016. Abnormal outpatient nuclear stress testing coordinator to diagnostic cardiac catheterization on November 19, 2016 (right radial artery) demonstrating right dominant coronary anatomy, mildly calcified LM with no significant disease, type 3 LAD with a widely patent stent and a 40% mid vessel stenosis (unchanged from prior cath), 30, 40% proximal LCX stenoses with moderate diffuse irregularities in the OM, widely patent mid and distal RCA stents, and a 40% proximal PDA stenosis. LV hyperdynamic EF >70%. 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 She is . She is a retired schoolteacher Family medical history: She has a brother who underwent coronary artery bypass surgery General: The patient denies weight change, night sweats, fever, chills. Head: The patient denies headache and prior head trauma. Cardiovascular: The patient denies chest pain or chest discomfort, dyspnea on exertion, palpitations, PND, orthopnea, edema, spontaneous shortness of breath, syncope and near syncope. Pulmonary: The patient denies cough, wheeze, pleurisy, hemoptysis, sputum, and excessive snoring. Gastrointestinal: The patient denies nausea, vomiting, diarrhea, constipation, bloating, hematemesis, hematochezia, and abdominal pain. Skin: The patient denies diaphoresis and rash. Musculoskeletal: The patient denies joint pain, joint swelling, myalgia, back pain, neck pain and prior injuries. Neurological: The patient denies prior stroke and seizures Vital Signs Past 12 Hours Date Time Temp Pulse Resp B/P (MAP) Pulse Ox O2 Delivery O2 Flow Rate FiO2 01/22/18 12:37 36.7 55 16 164/88 (113) 97 Room Air 01/22/18 12:15 97 Room Air 01/22/18 11:02 60 16 161/57 97 01/22/18 10:50 95 Room Air 01/22/18 09:47 63 16 159/60 95 Room Air 01/22/18 09:22 96 Room Air 01/22/18 09:22 96 Room Air 01/22/18 09:16 36.7 69 18 163/68 96 Room Air 01/22/18 09:12 96 Room Air 01/22/18 09:07 65 General Appearance: Alert and Oriented x3. NAD. Head: Normocephalic Atraumatic. Eyes: PERRLA, EOMI, conjunctiva and sclera clear Neck: Supple. No carotid bruits noted. No JVD. No HJD. Respiratory: Breath sounds clear to auscultation bilaterally. No w/r/r. Cardiovascular: Reg rate and rhythm. S1 and S2 noted. No murmurs, rubs, gallops. PMI non displace. Abdomen: Normal bowel sounds, soft nontender. no abdominal bruits. Extremities: No edema, no clubbing or cyanosis. distal pulses 2/4 bilaterally. Neuro: No focal deficits. Psychiatric: Normal affect. Last 24 Hours Test 01/22/18 08:55 01/22/18 10:10 White Blood Count 7.07 K/uL Red Blood Count 4.41 M/uL Hemoglobin 14.0 g/dL Hematocrit 41.0 % Mean Corpuscular Volume 93.0 fL Mean Corpuscular Hemoglobin 31.7 pg Mean Corpuscular Hemoglobin Concent 34.1 g/dl Platelet Count 169 K/uL Mean Platelet Volume 10.9 fL Neutrophils (%) (Auto) 65.0 % Lymphocytes (%) (Auto) 23.6 % Monocytes (%) (Auto) 8.5 % Eosinophils (%) (Auto) 1.8 % Basophils (%) (Auto) 0.8 % Neutrophils # (Auto) 4.59 K/uL Lymphocytes # (Auto) 1.67 K/uL Monocytes # (Auto) 0.60 K/uL Eosinophils # (Auto) 0.13 K/uL Basophils # (Auto) 0.06 K/uL RDW Standard Deviation 45.2 fL RDW Coefficient of Variation 13.2 % Immature Granulocyte % (Auto) 0.3 % Immature Granulocyte # (Auto) 0.02 K/uL Prothrombin Time 10.2 SECONDS Prothromb Time International Ratio 1.0 Activated Partial Thromboplast Time 25.7 SECONDS Partial Thromboplastin Ratio 1.0 Sodium Level 138 mmol/L Potassium Level 3.9 mmol/L Chloride Level 103 mmol/L Carbon Dioxide Level 29 mmol/L Anion Gap 6.0 mmol/L Blood Urea Nitrogen 17 mg/dl Creatinine 0.91 mg/dl Est Creatinine Clear Calc Drug Dose 45.1 ml/min Estimated GFR () 69.5 Estimated GFR (Non- 60.0 BUN/Creatinine Ratio 18.1 Random Glucose 108 mg/dl Calcium Level 9.6 mg/dl Total Bilirubin 0.5 mg/dl Direct Bilirubin 0.1 mg/dl Aspartate Amino Transf (AST/SGOT) 16 U/L Alanine Aminotransferase (ALT/SGPT) 19 U/L Alkaline Phosphatase 56 U/L Troponin I < 0.015 ng/ml Total Protein 7.5 gm/dl Albumin 3.9 gm/dl Lipase 205 U/L Urine Color YELLOW Urine Appearance CLEAR Urine pH 5.0 Urine Specific [place] 1.008 Urine Protein NEG Urine Glucose (UA) NEG Urine Ketones NEG Urine Occult Blood NEG Urine Nitrite NEG Urine Bilirubin NEG Urine Urobilinogen NEG Urine Leukocyte Esterase TRACE Urine WBC (Auto) 1-5 /hpf Urine RBC (Auto) 0-4 /hpf Urine Hyaline Casts (Auto) 0 /lpf Urine Epithelial Cells (Auto) 5-10 /lpf Urine Bacteria (Auto) NEG Impression: 1. New onset angina 2. Aortic stenosis which has progressed by recent echocardiography as an outpatient 3. Previous history of coronary artery disease and multiple coronary stents Recommendations: After reviewing the most recent echocardiogram I think this patient is best evaluated with the right and left heart catheterization to better define her aortic stenosis as well as coronary anatomy. I have explained the risk, benefit and intent to the procedure. The patient expresses understanding and is willing to proceed.
[2018-01-22] MEDS ORDERED: SODIUM CHLORIDE 0.9% 1000ML 1,000 ML IV SCH (14:30)
[2018-01-22] MEDS ORDERED: IV FLUIDS COMPLETED PRN (14:30)
[2018-01-22] MEDS ORDERED: ENOXAPARIN 40 MG/0.4 ML SYR SC SCH (18:00)
[2018-01-22] MEDS ORDERED: NURSING VERBAL MED ORDER ONE (18:30)
[2018-01-22] MEDS: METOPROLOL TARTRATE 25 MG TAB PO SCH (18:43)
[2018-01-22] MEDS ORDERED: ASCORBIC ACID 500 MG TAB PO SCH (21:00)
[2018-01-22] MEDS ORDERED: ROSUVASTATIN CALCIUM 20 MG TAB PO SCH (21:00)
[2018-01-22] MEDS ORDERED: ASPIRIN 81 MG ECTAB PO SCH (21:00)
[2018-01-22] MEDS ORDERED: ISOSORBIDE MONONITRATE 30 MG TABCR PO SCH (21:00)
[2018-01-23] VITALS (10 sets, daily range): BP systolic 113–146; BP diastolic 55–87; PULSE 57–66; TEMP 36.3–36.6; O2SAT 93–97
[2018-01-23 04:48] LABS: BLOOD UREA NITROGEN 18 mg/dl (7-18); CALCIUM 8.4 mg/dl (8.5-10.1); CARBON DIOXIDE 28 mmol/L (21-32); CREATININE 0.87 mg/dl (0.60-1.20); GLUCOSE 106 mg/dl (70-99); SODIUM 141 mmol/L (136-145)
[2018-01-23 04:53] LABS: CHOLESTEROL 139 mg/dl (0-200); LDL CHOLESTEROL CALCULATED 61 mg/dl
[2018-01-23] MEDS: METOPROLOL TARTRATE 25 MG TAB PO SCH (08:20)
[2018-01-23] MEDS ORDERED: AMLODIPINE BESYLATE 5 MG TAB PO SCH (09:00)
[2018-01-23] MEDS ORDERED: LACTOBACILLUS ACIDOPHILUS 1 GM PACK PO SCH (09:00)
[2018-01-23] MEDS ORDERED: MULTIVITAMIN TAB PO SCH (09:00)
[2018-01-23] MEDS ORDERED: ISOSORBIDE MONONITRATE 30 MG TABCR PO SCH (09:00)
[2018-01-23] MEDS ORDERED: VITAMIN D PO SCH (09:00)
[2018-01-23] MEDS ORDERED: CALCIUM MAGNESIUM PO SCH (09:00)
[2018-01-23] MEDS ORDERED: MIDAZOLAM HCL 1 MG/ML 2ML VIAL ONE (13:03)
[2018-01-23] MEDS ORDERED: SODIUM CHLORIDE 0.9% 1000ML 250 ML IV PRN (14:22)
[2018-01-23] MEDS ORDERED: SODIUM CHLORIDE 0.9% 1000ML 1,000 ML IV SCH ×2 (14:22)
--- NOTE | 2018-01-23 14:25 | Pre Sedation Assessment ---
Pre Sedation Assessment General Date of Sedation: Jan 23, 2018. Vital Signs Past 12 Hours Date Time Temp Pulse Resp B/P (MAP) Pulse Ox O2 Delivery O2 Flow Rate FiO2 01/23/18 14:15 65 16 158/76 (103) 98 Room Air 01/23/18 12:00 Room Air 01/23/18 11:43 36.3 57 18 141/66 (91) 96 Room Air 01/23/18 08:10 36.6 58 18 134/72 (92) 93 Room Air 01/23/18 08:00 Room Air 01/23/18 04:00 Room Air 01/23/18 02:28 36.5 58 18 127/55 (79) 96 Room Air Review Cardiovascular: regular rate, rhythm Lungs: lungs clear Pre-Sedation Airway Assessment Smoking Status: Never Smoker Hx of Sleep Apnea: No Hx of difficult intubation: No Short Thick Neck: No Thyro-mental Distance: > 3 Finger Breadths Oral Cavity: WNL Mallampati Classification: Class II (Sft palate,uvula,fauces visib.) ASA Classification: Class II NPO Status Date of Last Intake of Fluids: Jan 22, 2018 Time of Last Intake of Fluids: 22:59 Date of Last Intake of Solids: Jan 23, 2018 Time of Last Intake of Solids: 17:00 Procedure Planning Contraindications for Sedation: None Current Medications Reviewed: Yes Notes The planned sedation has been discussed with the patient. Informed Consent was obtained. I have identified the patient, determined the appropriateness of sedation and have assessed the patient immediately prior to the procedure. All medicine(s) and interventions are by my order.
--- NOTE | 2018-01-23 14:26 | Post Sedation Assessment ---
Post Sedation Assessment General Date of Sedation Jan 23, 2018. Vital Signs: Vital Signs Past 12 Hours Date Time Temp Pulse Resp B/P (MAP) Pulse Ox O2 Delivery O2 Flow Rate FiO2 01/23/18 14:15 65 16 158/76 (103) 98 Room Air 01/23/18 12:00 Room Air 01/23/18 11:43 36.3 57 18 141/66 (91) 96 Room Air 01/23/18 08:10 36.6 58 18 134/72 (92) 93 Room Air 01/23/18 08:00 Room Air 01/23/18 04:00 Room Air 01/23/18 02:28 36.5 58 18 127/55 (79) 96 Room Air Post Procedure Recovery Score Activity: (2) Moves 4 extremities * Respiration: (2) Deep breath/cough Circulation: (2) +/-20% PreAnes Value Consciousness: (2) Fully Awake Oxygen Saturation: (2) > 92% On Room Air Post Anesthesia Score: 10 Discharge Sedation Level of Care: Fast Track Phase II Post Sedation Plan On clinical assessment, the patient appears to have tolerated the sedation without complications. Patient is recovering as anticipated. Patient will continue to be monitored by nursing and may be discharged when sedation discharge criteria are met per below protocol. Upon Completions of procedure and additional 15 minutes continue every 5 minute vital signs and the P.A.R. score; then discharge to a Phase I or Fast Track to Phase II per the following guidelines: * Discharge Patient to appropriate Phase II area if PAR is 8 or greater or return to pre- procedure baseline. The post - procedure orders will be as directed. * If PAR score is less than 8 or not return to pre-procedure baseline then patient will follow Phase I monitoring till PAR is reached for Phase II. The Phase I may be done in procedure room or may call to secure a Phase I area. * If naloxone or flumazenil are used for reversal, hold in Phase I for an additional 60 -120 minutes before discharge to Phase II. Please call the Sedation Physician to re-evaluate and complete post-note for discharge to Phase II area. Do NOT discharge from procedure sedation or Phase 1 until post- sedation evaluation note is complete by procedure /sedation MD Sedation Discharge Instructions to be given to the patient at discharge to home.
[2018-01-23] MEDS ORDERED: ONDANSETRON INJ 2 MG/ML 2 ML VIAL IV PRN (14:30)
[2018-01-23] MEDS ORDERED: ATROPINE SULFATE 0.1 MG/ML 5ML SYR IV PRN (14:30)
[2018-01-23] MEDS ORDERED: ACETAMINOPHEN 325 MG TAB PO PRN (14:30)
--- NOTE | 2018-01-23 14:47 | Procedure Note ---
Cardiac Cath Report Procedure: 1. Right heart catheterization 2. Left heart catheterization 3. Coronary angiography 4. Left ventriculogram History: This is a 77-year-old female with a history of coronary artery disease with multiple coronary stents. She also has a history of aortic stenosis. She was admitted with chest pain relieved with sublingual nitroglycerin. Her most recent echocardiogram indicates progression of her aortic stenosis. Procedure summary: The patient was brought to the cardiac catheterization lab. After informed consent was obtained the patient was prepped and draped in the usual manner for right and left heart catheterization. A right transfemoral approach was utilized. A 7 [place] catheter was utilized for right heart pressures and cardiac outputs. Preformed 5 [place] diagnostic catheters were utilized for the coronary angiograms. A 5 [place] pigtail catheter was initially tried to cross the aortic valve however, after multiple tries a multipurpose catheter was utilized which successfully cross the valve. Following the procedure the arterial site was closed with the minks device the patient was returned to her room in stable condition. Hemodynamic data: Right atrial pressure 5 mmHg Right ventricular pressure 26 over 5 mmHg Pulmonary artery pressure 26 over 15 mmHg Pulmonary Capillary wedge pressure to millimeters of mercury Cardiac output by thermal dilution 3.7 L/m, by Daiana 4.3 L/m Central aortic pressure 157/65 mmHg Left ventricular pressure 148/32 mmHg The mean gradient across the aortic valve is 13.95 mmHg. The estimated aortic valve area by both thermal dilution and Daiana is 1.1-1.2 cm . The aortic valve index is 0.69 cm/m Coronary angiography: The patient has evidence of previous coronary stents in the LAD on fluoroscopy. Selective injections of the left coronary artery revealed mild tapering at the ostium of the left main trunk but the left main trunk is otherwise widely patent. The left circumflex artery consist principally of a small first marginal branch and the second large marginal branch. First marginal branch has ostial disease. The remainder of the left circumflex artery has diffuse nonobstructive disease. The LAD extends alloy to the apex. There is a long segment of stented artery in the proximal and midportion of the LAD which appears to be widely patent. The stents appear to and before the takeoff of a large diagonal branch. There is minor nonobstructive disease at this bifurcation with the remainder the LAD and diagonal being widely patent. There is evidence on fluoroscopy of possible stents within the proximal and mid RCA. The right coronary artery has nonobstructive disease. Left ventriculogram: The left ventricle was of normal size with normal systolic function. The mitral valve is competent. The aortic root and ascending aorta of normal morphology. Impression: Moderate aortic stenosis. Patent coronary anatomy including the previous stent sites. Normal LV function Recommendations: The recommendations are for continued medical management the patient's coronary artery disease and aortic stenosis.
--- NOTE | 2018-01-23 14:53 | Cardiac Catheterization ---
Procedure Note Procedure Date Jan 23, 2018. 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) None Estimated Blood Loss None Medication(s) Versed, Lidocaine 1% Summary of Findings I'll see dictated report Hemodynamics Rest Ao: 157/65 Final Ao: 137/67 LV: 148/32 Recommendations Medical therapy and/or Counseling Specimens None Radiation Exposure (mGy) 1106 Contrast (mls) 94 Procedural Complication(s) None Disposition PCU ACC Data Cardiac Status Clinical evaluation leading to the procedure CAD Presntation: Unstable angina Anginal Classification: CCS II Heart Failure: No Cardiogenic Shock w/in 24Hrs: No Cardiac Arrest w/in 24Hrs: No Imaging studies past 6 months: Yes Stress studies past 6 months: No Coronary Anatomy Dominant: Right Left Main (% Stenosis): Normal LAD (% Stenosis): Normal Circumflex (% Stenosis): Normal RCA (% Stenosis): Normal Left Ventricular Angiography EF (%): 60 Mitral Regurgitation: None Diagnostic Status: Urgent Closure Device Percutaneous Entry Location: Femoral Closure Device: Mynx Recommendations: Medical therapy and/or Counseling
--- NOTE | 2018-01-23 16:25 | Discharge Instructions ---
Discharge Instructions Date of Service Jan 23, 2018. Admission Reason for Admission: Chest Pain Rule Out Discharge Discharge Diagnosis / Problem: Possible anginal equivalent with left arm pain, normal heart cath Discharge Goals Goal(s): Improve function, Improve disease control Activity Recommendations Activity Limitations: resume your previous activity . Instructions / Follow-Up Instructions / Follow-Up Medications: no changes In summary, you underwent a left heart cath that showed patent coronary arteries and aortic stenosis that was considered moderate cardiology recommends medical management no further testing Left arm burning pain: as we discussed, if it continues to happen, you could discuss cervical spine imaging with Dr. Shirley FOLLOW UP - call Dr. Shirley's office for appointment in one week for hospital follow up Current Hospital Diet Patient's current hospital diet: AHA Diet (Heart Healthy) Discharge Diet Recommended Diet: AHA Diet (Heart Healthy) Procedures Procedures Performed: Left heart cath on 01/23/18 Pending Studies Studies pending at discharge: no Laboratory Results Lipid Panel Test 01/23/18 04:12 Range/Units Triglycerides Level 110 0-150 mg/dl Cholesterol Level 139 0-200 mg/dl HDL Cholesterol 56 mg/dl Cholesterol/HDL Ratio 2.5 LDL Cholesterol, Calculated 61 mg/dl Medical Emergencies . Who to Call and When: Medical Emergencies: If at any time you feel your situation is an emergency, please call 911 immediately. . Non-Emergent Contact Non-Emergency issues call your: Primary Care Provider, Senior Producer Call Non-Emergent contact if: you have any medication questions . . "Provider Documentation" section prepared by Aníbal Bang . [place] Drug Monitoring Program Search Results: no issues identified
--- NOTE | 2018-01-23 20:11 | Discharge Summary ---
Discharge Summary Date of Service Jan 23, 2018. Discharge Summary Admission Date: Jan 22, 2018 at 10:39 Discharge Date: Jan 23, 2018 Discharge Disposition: Home Principal Diagnosis: Left arm pain Problems/Secondary Diagnoses: CAD, patent coronary stents Moderate aortic stenosis HTN Dyslipidemia Immunizations: Have You Had Influenza Vaccine: Yes History of Tetanus Vaccine?: No History of Pneumococcal: No History of Hepatitis B Vaccine: No Procedures: Left heart catheterization 01/23/18 Consultations: Cardiology Medication Reconciliation Continued Medications: Acetaminophen (Tylenol) 500 Mg Tab 500-1000 MG PO BID PRN for Pain Amlodipine (Norvasc) 5 Mg Tab 5 MG PO QAM Ascorbic Acid (Vitamin C) 1,000 Mg Tab 1000 MG PO QPM Aspirin (Aspirin Ec) 81 Mg Tab 81 MG PO QPM Calcium-Magnesium W/ Vitamin D (Calcium 500) 1 Tab Tab 1000 MG PO QAM Hydralazine HCl (Hydralazine HCl) 25 Mg Tab 12.5 MG PO BID Isosorbide Mononitrate Ext Rel (Imdur Ext Rel) 30 Mg Ertab 30 MG PO BID Lactobacillus (Probiotic) 1 Cap Cap 1 CAP PO QAM Metoprolol Tartrate (Lopressor) (Lopressor) 25 Mg Tab 25 MG PO BID Multivitamin (Multivitamin) Tab 1 TAB PO QAM Nitroglycerin (Nitrostat) 0.4 Mg Tab 0.4 MG UT UD PRN for Chest Pain Rosuvastatin Calcium (Crestor) 40 Mg Tab 40 MG PO QPM Discharge Exam Patient feeling well today, no further left arm pain. No chest pain, no nausea , no dyspnea, no diaphoresis. Underwent left heart catheterization today, showed that her four stents were patent, LV function normal, aortic stenosis was considered moderate. Tolerated procedure well, ready to go home. Cardiology recommended medical management for both her CAD and aortic stenosis. Review of Systems: Constitutional: No fever, No chills, No sweats, No weight loss, No weakness , No fatigue, No problem reported Eyes: No worsening of vision, No eye pain, No redness, No discharge, No diplopia, No problem reported ENT: No hearing loss, No unusual epistaxis, No nasal symptoms, No sore throat, No tinnitus, No dental problems, No trouble swallowing, No problem reported Respiratory: No cough, No sputum, No wheezing, No shortness of breath, No dyspnea on exertion, No dyspnea at rest, No hemoptysis, No problem reported Cardiovascular: No chest pain, No orthopnea, No PND, No edema, No claudication, No palpitations, No problem reported Abdomen: No pain, No nausea, No vomiting, No diarrhea, No constipation, No GI bleeding, No problem reported Musculoskeletal: No joint pain, No muscle pain, No swelling, No calf pain, No problem reported Genitourinary - Female: No dysuria, No urinary frequency, No urinary urgency , No urinary incontinence, No urinary retention, No hematuria Neurologic: No memory loss, No paralysis, No weakness, No numbness/tingling , No vertigo, No balance problems, No problem reported Psychiatric: No depression symptoms, No anhedonism, No anxiety, No insomnia , No substance abuse, No problem reported Endocrine: No fatigue, No excessive thirst, No excessive urination, No problem reported Hematologic / Lymphatic: No abnormal bleeding/bruising, No clotting problems , No swollen lymph nodes, No night sweats, No problem reported Integumentary: No rash, No itch, No new/changing skin lesions, No color change, No bleeding, No problem reported Physical Exam: General Appearance: WD/WN, no apparent distress Eyes: normal inspection, EOMI, sclerae normal ENT: normal ENT inspection, hearing grossly normal, pharynx normal Neck: supple, no adenopathy, no JVD, trachea midline Respiratory/Chest: chest non-tender, lungs clear, normal breath sounds, no respiratory distress, no accessory muscle use Cardiovascular: regular rate, rhythm, no edema, no gallop, no JVD, no murmur , normal peripheral pulses Abdomen / GI: normal bowel sounds, non tender, soft, no organomegaly Extremities: normal inspection, no calf tenderness, normal capillary refill , no pedal edema, normal range of motion, pelvis stable Neurologic/Psychiatric: grader tender II-XII nml as tested, no motor/sensory deficits , alert, normal mood/affect, normal reflexes, oriented x 3 Skin: normal color, warm/dry, no rash Lymphatic: no adenopathy Hospital Course 77 yo female with history of CAD with 4 stents, presented with two episodes of burning left arm pain that resolved with SL Nitro. Had some associated back pain and diaphoresis. No chest pain, no dyspnea, no nausea. - Unstable angina, h/o CAD with 4 stents underwent left heart catheterization on 01/23, full details in report showed that stents patent, no worsening of CAD, LV function normal cardiology recommended medical management continue beta rossi, CCB, aspirin, Crestor - Aortic stenosis: thought to be severe on echocardiogram on [facility], diagnosed as moderate will continue to follow with cardiology, medical management - Left arm pain: thought to be anginal equivalent resolved with nitroglycerin no further episodes after hospitalization if she has further pain in arm, could consider cervical spine x-ray - HTN: BP better controlled today, continue Imdur, Lopressor, Norvasc and Hydralazine d/c to home with close cardiology follow up Total Time Spent: Greater than 30 minutes This includes examination of the patient, discharge planning, medication reconciliation, and communication with other providers. Discharge Instructions Please refer to the electronic Patient Visit Report (Discharge Instructions) for additional information. Follow-Up Dr. Shirley in one week Cardiology as previously scheduled Additional Copies To Roman Nieto M.D.; Maximino Shirley M.D.
== END 2018-01-23 18:00 | disposition home or self-care (01) ==
LOC: EDBD 08:58 → C.EDB 08:59 → C.MED 10:39 → ENRESERV 10:52 → C.MED 14:27 → EDBEDREQ 01-23 13:06 → ENRESERV 01-23 15:15 → C.2T 01-23 15:31
PROVIDERS: ADMIT Hospitalist; ATTEND Internal Medicine
DX: I25.110 Atherosclerotic heart disease of native coronary artery with unstable angina pectoris (principal); I10 Essential (primary) hypertension; M13.0 Polyarthritis, unspecified; M81.0 Age-related osteoporosis without current pathological fracture; I35.0 Nonrheumatic aortic (valve) stenosis; E78.5 Hyperlipidemia, unspecified; Z79.82 Long term (current) use of aspirin; Z79.899 Other long term (current) drug therapy; Z88.0 Allergy status to penicillin; Z88.1 Allergy status to other antibiotic agents; Z88.8 Allergy status to other drugs, medicaments and biological substances; Z95.1 Presence of aortocoronary bypass graft

== ENCOUNTER → 2018-01-30 | Outpatient (CLI) | payer OTHER ==
[~2018-01-30] MED LIST changes: -APR25 PO; -CLOP1TAB15 PO; -CRAN1CAP15 PO; +HYDR-4716 PO; -LOSA50TA6 PO; -OMEG12006 PO
--- NOTE | 2018-01-30 17:00 | DIAGNOSTIC IMAGING REPORT ---
R EXTREMITY NONVASCULAR LIMITED HISTORY: 77 years-old Female RT GROIN HEMATOMA acute swelling of the right inguinal region status post recent cardiac catheterization COMPARISON: None available TECHNIQUE: Multiple real-time sonographic images of the right inguinal region were obtained assessing grayscale appearance, color and spectral flow FINDINGS: Within the right groin there is mild subcutaneous edema. Additionally, there is an ill-defined heterogeneous collection without distinct margins measuring up proximally 4.3 x 3.1 x 3.0 cm. There may be scattered areas of internal flow. The adjacent common femoral artery and veins appear patent and within normal limits. No definite pseudoaneurysm identified. IMPRESSION: Ill-defined heterogeneous collection within the right inguinal region measuring up to 4.3 cm suggests postprocedural hematoma. No definite pseudoaneurysm identified. The above report was generated using voice recognition software. It may contain grammatical, syntax or spelling errors. Electronically signed by: Solomon Clay M.D. 01/30/2018 4:58 PM Dictated Date/Time: 01/30/2018 4:56 PM
== END | disposition home or self-care (01) ==
LOC: C.ULTR 15:38
PROVIDERS: ATTEND Physician Assistant Medical
DX: R10.31 Right lower quadrant pain (principal); R39.9 Unspecified symptoms and signs involving the genitourinary system; R93.8 Abnormal findings on diagnostic imaging of other specified body structures

== ENCOUNTER → 2018-03-15 | Outpatient (CLI) | payer OTHER ==
--- NOTE | 2018-03-15 15:31 | MAMMOGRAPHY REPORT ---
BILATERAL DIGITAL SCREENING MAMMOGRAM TOMOSYNTHESIS WITH CAD: 03/15/2018 CLINICAL HISTORY: Routine screening. Patient has no complaints. TECHNIQUE: Breast tomosynthesis in addition to standard 2D mammography was performed. Current study was also evaluated with a Computer Aided Detection (CAD) system. COMPARISON: Comparison is made to exams dated: 02/16/2016 mammogram, 02/18/2017 mammogram, 02/13/2015 m ammogram, 02/01/2014 mammogram, 01/29/2013 mammogram, and 01/24/2012 mammogram - [facility]ter. BREAST COMPOSITION: The tissue of both breasts is almost entirely fatty. FINDINGS: No suspicious masses, calcifications, or areas of architectural distortion are noted in ei ther breast. There has been no significant interval change compared to prior exams. Scattered bilater al benign-appearing calcifications are not significantly changed. IMPRESSION: ACR BI-RADS CATEGORY 2: BENIGN There is no mammographic evidence of malignancy. A 1 year screening mammogram is recommended. The pa tient will receive written notification of the results. Approximately 10% of breast cancers are not detected with mammography. A negative mammographic report should not delay biopsy if a clinically suggestive mass is present. Deisy Combs M.D. /:03/15/2018 14:43:51 Transaction Processor: Tatiana MARTÍNEZ(Mckay)(M), [facility] [address] letter sent: Normal 1/2 BI-RADS Code: ACR BI-RADS Category 2: Benign
== END | disposition home or self-care (01) ==
LOC: C.MAMM 11:12
PROVIDERS: ATTEND Internal Medicine
DX: Z12.31 Encounter for screening mammogram for malignant neoplasm of breast (principal)

== ENCOUNTER → 2018-04-10 | Outpatient (CLI) | payer OTHER ==
[2018-04-10 13:22] LABS: BASO % 0.7 %; BASO ABS # 0.05 K/uL (0-0.2); EOS % 3.1 %; EOS ABS # 0.21 K/uL (0-0.5); HEMATOCRIT 42.8 % (37-47); HEMOGLOBIN 14.3 g/dL (12.0-16.0); IG# 0.01 K/uL (0.00-0.02); LYMPH % 23.8 %; LYMPH ABS # 1.61 K/uL (1.2-3.4); MEAN CELL VOLUME 94.3 fL (80-100); MEAN CORPUSCULAR HEMOGLOBIN 31.5 pg (25-34); MEAN CORPUSCULAR HGB CONC 33.4 g/dl (32-36); MEAN PLATELET VOLUME 10.8 fL (7.4-10.4); MONO % 10.4 %; NEUT % 61.9 %; NEUT ABS # 4.18 K/uL (1.4-6.5); PLATELET COUNT 177 K/uL (130-400); RED CELL DISTRIBUTION WIDTH CV 13.5 % (11.5-14.5); RED CELL DISTRIBUTION WIDTH SD 46.7 fL (36.4-46.3); WHITE BLOOD COUNT 6.76 K/uL (4.8-10.8)
[2018-04-10 14:32] LABS: ALBUMIN 3.9 gm/dl (3.4-5.0); ALKALINE PHOSPHATASE 58 U/L (45-117); ALT/SGPT 21 U/L (12-78); AST/SGOT 21 U/L (15-37); BLOOD UREA NITROGEN 11 mg/dl (7-18); CALCIUM 9.1 mg/dl (8.5-10.1); CARBON DIOXIDE 33 mmol/L (21-32); CHOLESTEROL 142 mg/dl (0-200); CREATININE 0.84 mg/dl (0.60-1.20); GLUCOSE 95 mg/dl (70-99); LDL CHOLESTEROL CALCULATED 55 mg/dl; POTASSIUM 4.5 mmol/L (3.5-5.1); SODIUM 141 mmol/L (136-145); TOTAL PROTEIN 7.6 gm/dl (6.4-8.2)
== END | disposition home or self-care (01) ==
LOC: C.LABBFT 09:10
PROVIDERS: ATTEND Internal Medicine
DX: I25.10 Atherosclerotic heart disease of native coronary artery without angina pectoris (principal); M85.80 Other specified disorders of bone density and structure, unspecified site; E78.5 Hyperlipidemia, unspecified; R73.03 Prediabetes

== ENCOUNTER → 2018-04-12 | Outpatient (CLI) | payer OTHER | END | disposition home or self-care (01) | LOC: C.LABBFT 09:21 | PROVIDERS: ATTEND Internal Medicine | DX: R39.9 Unspecified symptoms and signs involving the genitourinary system (principal); I25.10 Atherosclerotic heart disease of native coronary artery without angina pectoris ==

== ENCOUNTER → 2018-07-03 | Outpatient (CLI) | payer OTHER ==
[~2018-07-03] MED LIST changes: -AMLO-110 PO; +AMLO5TAB3 PO
== END | disposition home or self-care (01) ==
LOC: C.LABBFT 12:41
PROVIDERS: ATTEND Internal Medicine
DX: R39.9 Unspecified symptoms and signs involving the genitourinary system (principal); N39.0 Urinary tract infection, site not specified

== ENCOUNTER → 2018-07-15 | Outpatient (CLI) | payer OTHER | END | disposition home or self-care (01) | LOC: C.LABSPEC 11:40 | PROVIDERS: ATTEND Physician Assistant Medical | DX: N39.0 Urinary tract infection, site not specified (principal) ==

== ENCOUNTER 2024-05-03 10:54 | Inpatient (IN) ==
--- NOTE | 2024-05-03 12:28 | Emergency Department Note ---
Impression & Plan Closed fracture of sacrum, Ambulatory dysfunction ED Provider Note HISTORY OF PRESENT ILLNESS: Patient is an 83-year-old female presenting with left-sided low back pain and left hip pain. Patient reports for the last week she has been having progressively worsening pain in the left low back, left buttock region and left hip. She states that a week ago she was cleaning out her garage for 3 days and is not sure if she lifted something inappropriately. Reports on the third day of the cleaning, she noticed she had some discomfort on her left hip. She seen in the emergency department 7 days ago and was discharged home. Reports that she saw her primary care provider and started on prednisone pack. She states that she has taken 2 doses of the prednisone, with little relief in her symptoms. Reports that today she was unable to get up out of bed secondary to immense pain. Pain is worse with movement. Locates the pain to the lower lumbar midline spine with radiation into her left low back and left hip. Denies any numbness or tingling down her extremities. Denies any bowel or bladder incontinence. She denies any falls or recent chiropractic manipulation of her back. Denies any saddle anesthesia. Patient reports she has not taken anything for the pain today. ROS: as above PHYSICAL EXAM: Constitutional: Patient appears in no acute distress. HENT: Head: Normocephalic and atraumatic. Eyes: EOMI, PERRL Mouth/Throat: Mucous membranes moist. Neck: Trachea midline. Neck supple. Abdominal: Abdomen soft, no tenderness, rebound or guarding. Back: No CVA tenderness. Lower lumbar midline tenderness to palpation. No obvious ecchymosis or step-offs. Patient has reproducible tenderness to palpation of the paraspinal muscles in the left lower lumbar region and palpation of the left upper buttock. When patient straight leg raises with her right leg, she complains of pain in her left low back. Musculoskeletal: No edema, tenderness or deformity noted. Skin: Warm and dry. No rash, erythema, pallor or cyanosis Psychiatric: Appropriate mood and affect for situation. Neurological: Alert and keenly responsive. CN II-XII grossly intact, moving all extremities equally and fully. MDM: - Vitals signs stable - History obtained via patient. History as above. - Chronic conditions affecting care: HTN; aortic stenosis; HLD; CAD; CKD - Differential diagnoses include, but are not limited to: compression fracture; pelvic fracture; UTI; ureteral stone; sciatic pain - Order placed for continuous cardiac monitoring. At this time, monitor showed rate of 80 bpm with normal sinus rhythm, per my interpretation. - External medical records reviewed. Primary care visit note dated 05/02/2024 was reviewed. Patient followed in the clinic for presumed left-sided sciatic pain. They prescribed the patient a tapering course of prednisone. - Laboratory workup interpreted by myself showed leukocytosis (WBC 16.21); stable electrolytes - UA negative for infection - CT lumbar spine wo contrast showed acute nondisplaced left sacral ala fractures. - Patient given lidoderm patch and robaxin 500 mg PO in ER. - Discussed results with the patient. We did attempt to get her out of bed to attempt to ambulate her to see if we could do pain control and discharge home. However, patient was in too much pain and is unable to bear weight on her left side secondary to pain. Did discuss admission to the hospital for PT/OT assessment and potential rehab placement. Patient was agreeable to this latter option. - Discussion was had with watch caser about patient's case and need for admission - Hospitalist consulted for admission - Patient admitted to [facility] for further evaluation and management. ASSESSMENT AND PLAN: Diagnosis: sacral ala fracture; ambulatory dysfunction; fracture of sacrum Plan: admit Past Med/Surg History Problem List (Updated 05/03/24 @ 15:40 by Sheeba Guzman MD) Ambulatory dysfunction (Acute) Closed fracture of sacrum (Acute) Left sided sciatica Left leg pain Acute left-sided low back pain (Acute) Acute pain of left hip (Acute) History of ankylosing spondylitis Chronic kidney disease, stage 3 Pancreatic lesion 05/2021 CT showed 5mm side branch IPMN. Radiology reviewed study from 03/2020 and lesion grossly stable. Allergic rhinitis History of basal cell carcinoma Renal cyst (Acute) CAD, multiple vessel (Acute) Disc degeneration, lumbar (Acute) HLA-B27 positive arthropathy (Chronic) Hyperlipidemia (Acute) Osteopenia (Chronic) Prediabetes (Acute) Aortic stenosis Hx aortic valve replacement 09/2024 Hypertension (Chronic) Carotid stenosis (Acute) Medical History (Updated 05/03/24 @ 15:40 by Sheeba Guzman MD) Gastroesophageal reflux disease TIA (transient ischemic attack) C. difficile colitis Surgical History History of tonsillectomy History of oral surgery History of cataract surgery Hx of heart artery stent Family History Mother Breast cancer Brother Coronary heart disease Hypertension Father Hypertension Coronary heart disease Grandmother (Maternal) Gastric cancer Grandfather (Maternal) Coronary heart disease Denies family history of Ovarian cancer Colorectal cancer Social History (Updated 05/02/24 @ 13:08 by LESLEY Campbell) Smoking Status: Never smoker Second Hand Exposure: No; Do You Dip or Chew Tobacco: No; Hx Alcohol Use: No Hx Substance Use: No Preferred Language: Irish Communication Ability: Effective Hearing Ability: Normal 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 Beliefs That Will Affect Care: Orthodoxy Orthodoxy Beliefs: Moravian marital status: / Current Living Situation: Alone current occupational status: retired Feels Safe at Home: Yes Childhood Exposure to Second-Hand Smoke: Yes Diet: regular caffeine: Yes Dental Care, Regularly: Yes Physical Activity Frequency: 1-2 Times per Week Seatbelt Use: always Sunscreen Use: Yes Assistive Devices: Glasses Allergies Allergies Allergy/AdvReac Type Severity Reaction Status Date / Time Penicillins Allergy Mild Verified 05/03/24 14:09 Sulfa (Sulfonamide Allergy Mild unknown Verified 05/03/24 14:09 Antibiotics) alendronate sodium Allergy Unknown . Verified 05/03/24 14:09 atorvastatin Allergy Unknown MUSCLE Verified 05/03/24 14:09 ACHES cephalexin Allergy Unknown UNKNOWN Verified 05/03/24 14:09 Cipro AdvReac Unknown N/V Verified 01/22/18 10:20 ciprofloxacin AdvReac Unknown N/V Verified 05/03/24 14:09 Ibandronic Acid Allergy Unknown . Uncoded 05/03/24 14:09 Home Meds Home Medications Medication Instructions Recorded Confirmed acetaminophen 500 mg tablet 500 mg PO Q4H PRN Pain 02/02/19 05/03/24 multivitamin 1 tab PO QAM 02/02/19 05/03/24 nitroglycerin 0.4 mg sublingual 0.4 mg sublingual DIRECTED PRN 02/02/19 05/03/24 tablet Chest Pain rosuvastatin 40 mg tablet 40 mg PO HS 02/02/19 05/03/24 calcium carbonate (Calcium 500) 1,000 mg PO QAM 02/15/19 05/03/24 isosorbide mononitrate 120 mg 120 mg PO QAM 02/15/19 05/03/24 tablet,extended release 24 hr omega [id number]-ued-[id number]-fish oil 1,000 mg 1 cap PO QPM 02/15/19 05/03/24 (120 mg-180 mg) capsule (Fish Oil) ascorbic acid (vitamin C) 500 mg 500 mg PO QAM 07/16/19 05/03/24 tablet amlodipine 5 mg tablet 5 mg PO PM 04/08/20 05/03/24 aspirin 81 mg chewable tablet 81 mg PO DAILY 05/30/23 05/03/24 lactobacillus combination no.4 3 3,000 mmu cells PO DAILY 06/15/23 05/03/24 billion cell capsule (Probiotic) metoprolol succinate 25 mg 25 mg PO DAILY 09/26/23 05/03/24 tablet,extended release 24 hr (Toprol XL) Previous Rx's Medication Instructions Recorded diclofenac sodium 1 % topical gel 2 g topical QID #200 grams 10/08/22 (Voltaren Arthritis Pain) cyanocobalamin (vitamin B-12) 500 500 mcg PO DAILY #30 tabs 07/22/23 mcg tablet (Vitamin B-12) tramadol 50 mg tablet 50 mg PO Q8H PRN pain (scale score 04/27/24 7-10) #15 tabs famotidine 40 mg tablet 40 mg PO DAILY #30 tabs 05/02/24 prednisone 10 mg tablet See Rx Instructions PO DAILY #30 05/02/24 tabs Results & Data (ED) Vital Signs Vital Signs - 24 hr 05/03/24 10:58 05/03/24 12:11 05/03/24 14:17 Temperature 36.9 C Temperature Source Temporal Artery Scan Pulse Rate 66 Pulse Rate [Finger] 80 Pulse Rhythm Regular Pulse Strength Normal Respiratory Rate 20 18 Respiratory Effort / Characteristics Non-Labored Spontaneous Non-Labored Spontaneous Respiratory Depth Normal Normal Respiratory Pattern Regular Blood Pressure 176/68 H Blood Pressure [Right Arm] 134/78 140/61 Blood Pressure Mean 104 Blood Pressure Mean [Right Arm] 96 87 Blood Pressure Position Sitting Blood Pressure Position [Right Arm] Lying Lying Pulse Oximetry 97 97 Oxygen Delivery Method Room Air Room Air Sepsis Recent Fever Within 48 Hours No Sepsis New/Unexplained Change in Mental Status N/A Sepsis Action Taken by Nursing No Action Required Laboratory Data 05/03/24 14:13 05/03/24 14:13 Lab Results 05/03/24 05/03/24 Range/Units 14:13 14:14 WBC 16.21 H (4.8-10.8) K/ul RBC 4.76 (4.20-5.40) M/uL Hgb 14.5 (12.0-16.0) g/dl Hct 43.8 (37.0-47.0) % MCV 92.0 (80.0-100.0) fL MCH 30.5 (25.0-34.0) pg MCHC 33.1 (32.0-36.0) g/dL RDW Std Deviation 43.1 (36.4-46.3) fL RDW Coeff of Thanh 12.8 (11.5-14.5) % Plt Count 155 (130-400) K/uL MPV 10.6 (9.4-12.4) fL Immature Gran % (Auto) 0.5 % Neut % (Auto) 92.5 % Lymph % (Auto) 4.6 % [place] % (Auto) 2.2 % Eos % (Auto) 0.0 % Baso % (Auto) 0.2 % Neut # (Auto) 15.00 H (1.40-6.50) K/uL Lymph # (Auto) 0.75 L (1.20-3.40) K/uL [place] # (Auto) 0.35 (0.11-0.59) K/uL Eos # (Auto) 0.00 (0.00-0.50) K/uL Baso # (Auto) 0.03 (0.00-0.20) K/uL Immature Gran # (Auto) 0.08 (0.01-0.20) K/uL Sodium 143 (136-145) mmol/L Potassium 4.0 (3.5-5.1) mmol/L Chloride 105 (98-107) mmol/L Carbon Dioxide 28 (21-32) mmol/L Anion Gap 10 (3-11) BUN 23 (6-23) mg/dl Creatinine 0.94 (0.6-1.2) mg/dl Est Cr Clr Drug Dosing Not Reportable Est GFR ( Amer) 64.1 ml/min Est GFR (Non-Af Amer) 55.3 ml/min BUN/Creatinine Ratio 24.5 H (10-20) Glucose 176 H (70-99(Fasting)) mg/dl Calcium 10.3 (8.6-10.3) mg/dl Urine Color Yellow Urine Appearance Clear (Clear) Urine pH 6.5 (4.5-7.5) Ur Specific [place] 1.005 (1.000-1.030) Urine Protein Negative (Negative) Urine Glucose (UA) Negative (Negative) Urine Ketones Negative (Negative) Urine Blood Negative (Negative) Urine Nitrite Negative (Negative) Urine Bilirubin Negative (Negative) Urine Urobilinogen Negative (Negative) Ur Leukocyte Esterase Negative (Negative) Administered Medications Discontinued Medications Lidocaine (Lidocaine 5% 1 Patch) 1 patch TD NOW STA Stop: 05/03/24 12:25 Last Admin: 05/03/24 12:55 Dose: 1 patch Documented By: TNK Methocarbamol (Methocarbamol 500 Mg Tablet) 500 mg PO ONCE ONE Stop: 05/03/24 12:26 Last Admin: 05/03/24 12:56 Dose: 500 mg Documented By: TNK Imaging Data Radiologist's Impression: Hip/Pelvis X-Ray 05/03/24 11:01 XR hip KAMILAH 2v w pelvis CLINICAL HISTORY: pain TECHNIQUE: 2 views of the bilateral hips and single frontal view of the pelvis were obtained. Comparison: Comparison is made to CT abdomen pelvis 04/27/2024 FINDINGS: There is no evidence of an acute fracture. Mild degenerative changes are seen in the hip joints and prominent spinal osteoarthritic changes. Vascular calcifications are noted. IMPRESSION: Mild osteoarthritic changes as above. No evidence of acute fracture. ACT 112: Negative or not required by law. Electronically signed by: Aníbal Cain M.D. 05/03/2024 1:[address] 05/03/24 12:24 CT lumbar spine wo con HISTORY: 83 years-old Female low back pain radiating into left hip acute pain of the pelvis and low back COMPARISON: CT abdomen and pelvis and CT left hip 04/27/2024 TECHNIQUE: Multiple axial CT images of the lumbar spine were obtained without IV contrast. A dose lowering technique was used consistent with the principals of VIKKI. FINDINGS: New from the prior study is an acute intra-articular nondisplaced left sacral alar fracture demonstrating mild comminution best seen on the coronal images. Possible extension into the left SI joint. Demineralized appearance of the bones. Mild degeneration of the bilateral SI joints. No acute lumbar spine fracture or subluxation identified. Multilevel degenerative changes of the lumbar spine redemonstrated including moderate disc space narrowing and spondylitic spurring at L3-L4 L4-L5. Central canal and neural foramina are better assessed by MRI. Posterior annular disc bulging with disc osteophyte complex relation to result in multilevel foraminal stenosis. No high-grade central canal narrowing identified on this exam. Renal cysts redemonstrated. Colonic diverticulosis. IMPRESSION: 1. Acute nondisplaced left sacral alar fractures. 2. No acute fracture or subluxation of the lumbar spine. ACT 112: Negative or not required by law. The above report was generated using voice recognition software. It may contain grammatical, syntax or spelling errors. Electronically signed by: Sanjay Clay M.D. 05/03/2024 1:20 PM Discharge Plan Visit Data Chief Complaint: Back Injury/Pain Stated Complaint: LOWER BACK PAIN ED Provider: Sheeba Guzman Discharge Problem: Closed fracture of sacrum, Ambulatory dysfunction Forms Stand Alone Forms: My [facility] [employer] Prescriptions Prescriptions: No Action diclofenac sodium [Voltaren Arthritis Pain] 1 % gel 2 g topical QID Qty: 200 2RF Rx Instructions: apply to single elbow, wrist or hand; for hand includes palm/fingers/back of hand cyanocobalamin (vitamin B-12) [Vitamin B-12] 500 mcg tablet 500 mcg PO DAILY Qty: 30 0RF aspirin 81 mg tablet,chewable 81 mg PO DAILY metoprolol succinate [Toprol XL] 25 mg tablet extended release 24 hr 25 mg PO DAILY ascorbic acid (vitamin C) 500 mg tablet 500 mg PO QAM prednisone 10 mg tablet See Rx Instructions PO DAILY Qty: 30 0RF Rx Instructions: Start Date 05/02/24 x 12 day supply: 40mg(4 tab)[id number],30mg(3tab)[id number],20mg(2tab)x3day,10mg(1tab)x3day famotidine 40 mg tablet 40 mg PO DAILY Qty: 30 0RF acetaminophen 500 mg Tablet 500 mg PO Q4H PRN (Reason: Pain) Hold Instructions: Patient currently taking 325mg 3 tablets q 6 hours x 4 days. Patient Comments: unknown strength rosuvastatin 40 mg tablet 40 mg PO HS multivitamin Tablet 1 tab PO QAM nitroglycerin 0.4 mg Tablet, Sublingual 0.4 mg Sublingual DIRECTED PRN (Reason: Chest Pain) Rx Instructions: PLACE ONE TABLET UNDER THE TONGUE EVERY 5 MINUTES FOR UP TO 3 DOSES OVER 15 MINUTES IF NEEDED FOR CHEST PAIN. isosorbide mononitrate 120 mg tablet extended release 24 hr 120 mg PO QAM omega 8-vve-nqo-fish oil [Fish Oil] 1,000 mg (120 mg-180 mg) Capsule 1 cap PO QPM calcium carbonate [Calcium 500] 500 mg calcium (1,250 mg) Tablet 1,000 mg PO QAM amlodipine 5 mg tablet 5 mg PO PM Probiotic 3 billion cell Capsule 3,000 mmu cells PO DAILY Rx Instructions: administer with a meal tramadol 50 mg tablet 50 mg PO Q8H PRN (Reason: pain (scale score 7-10)) Qty: 15 0RF Referrals Referrals: Maximino Shirley MD [Physician] -
[2024-05-03] MEDS: LIDOCAINE 5% 1 PATCH TD STA (12:55)
[2024-05-03] MEDS: METHOCARBAMOL 500 MG TABLET PO ONE (12:56)
--- NOTE | 2024-05-03 13:01 | XRay Report ---
XR hip KAMILAH 2v w pelvis CLINICAL HISTORY: pain TECHNIQUE: 2 views of the bilateral hips and single frontal view of the pelvis were obtained. Comparison: Comparison is made to CT abdomen pelvis 04/27/2024 FINDINGS: There is no evidence of an acute fracture. Mild degenerative changes are seen in the hip joints and p rominent spinal osteoarthritic changes. Vascular calcifications are noted. IMPRESSION: Mild osteoarthritic changes as above. No evidence of acute fracture. ACT 112: Negative or not required by law. Electronically signed by: Aníbal Cain M.D. 05/03/2024 1:00 PM
--- NOTE | 2024-05-03 13:21 | CT Scan Report ---
CT lumbar spine wo con HISTORY: 83 years-old Female low back pain radiating into left hip acute pain of the pelvis and low back COMPARISON: CT abdomen and pelvis and CT left hip 04/27/2024 TECHNIQUE: Multiple axial CT images of the lumbar spine were obtained without IV contrast. A dose low ering technique was used consistent with the principals of VIKKI. FINDINGS: New from the prior study is an acute intra-articular nondisplaced left sacral alar fracture demonstra ting mild comminution best seen on the coronal images. Possible extension into the left SI joint. Dem ineralized appearance of the bones. Mild degeneration of the bilateral SI joints. No acute lumbar spi ne fracture or subluxation identified. Multilevel degenerative changes of the lumbar spine redemonstr ated including moderate disc space narrowing and spondylitic spurring at L3-L4 L4-L5. Central canal a nd neural foramina are better assessed by MRI. Posterior annular disc bulging with disc osteophyte co mplex relation to result in multilevel foraminal stenosis. No high-grade central canal narrowing iden tified on this exam. Renal cysts redemonstrated. Colonic diverticulosis. IMPRESSION: 1. Acute nondisplaced left sacral alar fractures. 2. No acute fracture or subluxation of the lumbar spine. ACT 112: Negative or not required by law. The above report was generated using voice recognition software. It may contain grammatical, syntax o r spelling errors. Electronically signed by: Sanjay Clay M.D. 05/03/2024 1:20 PM
[2024-05-03 14:43] LABS: Hematocrit (blood only) 43.8 % (37.0-47.0); Hemoglobin 14.5 g/dl (12.0-16.0); Mean Corpuscular Hemoglobin 30.5 pg (25.0-34.0); Mean Corpuscular Hgb Conc 33.1 g/dL (32.0-36.0); Mean Platelet Volume 10.6 fL (9.4-12.4); Platelet Count 155 K/uL (130-400); RDW Coefficient of Variation 12.8 % (11.5-14.5); RDW Standard Deviation 43.1 fL (36.4-46.3); Red Blood Count 4.76 M/uL (4.20-5.40); White Blood Count 16.21 K/ul (4.8-10.8)
[2024-05-03 14:52] LABS: Appearance Urine Clear (Clear); Bilirubin Urine Negative (Negative); Blood Urine Negative (Negative); Color Urine Yellow; Glucose Urine UA Negative (Negative); Ketones Urine Negative (Negative); Leukocyte Esterase Urine Negative (Negative); Nitrite Urine Negative (Negative); Protein Urine Negative (Negative); Specific Gravity Urine 1.005 (1.000-1.030); Urobilinogen Urine Negative (Negative); pH Urine 6.5 (4.5-7.5)
[2024-05-03 14:59] LABS: Basophils # (auto) 0.03 K/uL (0.00-0.20); Basophils % (auto) 0.2 %; Immature Granulocytes # (auto) 0.08 K/uL (0.01-0.20); Immature Granulocytes % (auto) 0.5 %; Lymphocytes # (auto) 0.75 K/uL (1.20-3.40); Lymphocytes % (auto) 4.6 %; Monocytes # (auto) 0.35 K/uL (0.11-0.59); Monocytes % (auto) 2.2 %; Neutrophils % (auto) 92.5 %
[2024-05-03 15:01] LABS: Anion Gap 10 (3-11); BUN Creatinine Ratio 24.5 (10-20); Blood Urea Nitrogen 23 mg/dl (6-23); Calcium 10.3 mg/dl (8.6-10.3); Carbon Dioxide 28 mmol/L (21-32); Chloride 105 mmol/L (98-107); Est GFR (African American) 64.1 ml/min; Est GFR (Non-African American) 55.3 ml/min; Glucose 176 mg/dl (70-99(Fasting)); Sodium 143 mmol/L (136-145)
--- NOTE | 2024-05-03 15:42 | History & Physical Report ---
Date of Service May 03, 2024 Assessment & Plan (1) Ambulatory dysfunction: Plan: Admit to med/surge Patient has been experiencing progressive low back/left lower extremity pain for the past week Found to have Acute nondisplaced left sacral alar fractures on lumbar spine CT today Was unable to safely ambulate due to significant pain in the left lower extremity at this time No red flag symptoms, patient does have decreased strength in the left lower extremity on exam likely due to significant pain on flexion of the left hip Has had improvement in pain after muscle relaxer in the ED Will consult orthopedic surgery as this is not an intra-articular fracture, however, may not require surgery Pain control with scheduled Tylenol, lidocaine patch, and as needed methocarbamol Fall precautions, PT/OT consults Subcu Lovenox for DVT prophylaxis Heart healthy diet AM CBC, BMP, mag, PT/INR (2) Closed fracture of sacrum: Plan: See ambulatory dysfunction (3) Leukocytosis: Plan: Patient noted to have a leukocytosis of 16 with neutrophil predominance 15 No other signs of possible infection Likely due to outpatient prednisone Continue to monitor fever curve Will obtain chest x-ray to rule out pneumonia as source of leukocytosis (4) Left leg pain: Plan: See ambulatory function (5) Hyperglycemia: Plan: Glucose today is 176 Likely to be related to recent steroid use Continue to monitor for now as we are going to hold steroids on admission Monitor a.m. glucose (6) Hypertension: Plan: Stable Continue amlodipine (7) CAD, multiple vessel: Plan: No recent chest pain Continue aspirin, statin, metoprolol, Imdur Plan The patient was discussed with Dr. Peralta at the time of admission History of Present Illness Chief Complaint: Back pain Primary Care Provider: DO Nickie Mcclurey is an 83-year-old female with past medical history significant for coronary artery disease status post JOSE MANUEL placement x 3, severe aortic stenosis status post TCAR in May 2023, hypertension, hyperlipidemia, left bundle branch block, and osteoporosis who presented to the [facility] ED on 05/03/2024 with a chief complaint of sharp lower back pain. She was initially noted to be hypertensive on arrival at 176/68, but was otherwise stable labs were significant for a leukocytosis of 16 with neutrophil predominance of 15, glucose of 176. X-ray of the bilateral hips and pelvis was read as negative for acute findings. CT of the lumbar spine without contrast was read as acute nondisplaced left sacral alar are fractures. It was negative for any acute fracture or subluxation of the lumbar spine. Prior to admission the patient was given a lidocaine patch and 500 mg p.o. methocarbamol. Patient was lying in bed in no acute distress at the time of the exam with her son bedside, history was obtained from both. They explain how the patient developed progressively worsening low back pain with radiation into the left buttocks and down the left lower extremity over the past week. No acute trauma associated with the pain. She was moving multiple boxes at her home approximately 4 days before the pain started. She was seen in the emergency department on 04/27/2024 and by her PCP on 05/02/2024. Her PCP had prescribed a prednisone taper which she began yesterday. Symptoms progressed to the point that she was unable to bear weight on the left lower extremity this a.m. due to pain. When asked she denies loss of bowel or bladder function, saddle anesthesia, paresthesias, or increased weakness in the left lower extremity compared to right lower extremity. Denies recent fever, chills, chest pain, shortness of breath, abdominal pain, nausea, vomiting, diarrhea, dysuria, hematuria, melena, lower extremity swelling. She is a full code and her son is her POA.She states that the muscle relaxer she received in the ED has significantly improved her pain. Please refer to Dr. Peralta's attestation for any changes to the treatment plan Allergies Allergy/AdvReac Type Severity Reaction Status Date / Time Penicillins Allergy Mild Verified 05/09/24 13:12 Sulfa (Sulfonamide Allergy Mild unknown Verified 05/09/24 13:12 Antibiotics) alendronate sodium Allergy Unknown . Verified 05/09/24 13:12 atorvastatin Allergy Unknown MUSCLE Verified 05/09/24 13:12 ACHES cephalexin Allergy Unknown UNKNOWN Verified 05/09/24 13:12 Cipro AdvReac Unknown N/V Verified 01/22/18 10:20 ciprofloxacin AdvReac Unknown N/V Verified 05/09/24 13:12 Ibandronic Acid Allergy Unknown . Uncoded 05/09/24 13:12 Home Medications Medication Instructions Recorded Confirmed Type acetaminophen 500 mg tablet 500 mg PO Q4H PRN Pain 02/02/19 05/09/24 History multivitamin 1 tab PO QAM 02/02/19 05/09/24 History nitroglycerin 0.4 mg sublingual 0.4 mg sublingual DIRECTED PRN 02/02/19 05/09/24 History tablet Chest Pain rosuvastatin 40 mg tablet 40 mg PO HS 02/02/19 05/09/24 History calcium carbonate (Calcium 500) 1,000 mg PO QAM 02/15/19 05/09/24 History isosorbide mononitrate 120 mg 120 mg PO QAM 02/15/19 05/09/24 History tablet,extended release 24 hr omega 5-ggv-gdz-fish oil 1,000 mg 1 cap PO QPM 02/15/19 05/09/24 History (120 mg-180 mg) capsule (Fish Oil) ascorbic acid (vitamin C) 500 mg 500 mg PO QAM 07/16/19 05/09/24 History tablet amlodipine 5 mg tablet 5 mg PO PM 04/08/20 05/09/24 History aspirin 81 mg chewable tablet 81 mg PO DAILY 05/30/23 05/09/24 History cyanocobalamin (vitamin B-12) 500 500 mcg PO DAILY #30 tabs 07/22/23 05/09/24 Rx mcg tablet (Vitamin B-12) metoprolol succinate 25 mg 25 mg PO DAILY 09/26/23 05/09/24 History tablet,extended release 24 hr (Toprol XL) famotidine 40 mg tablet 40 mg PO DAILY #30 tabs 05/02/24 05/09/24 Rx docusate sodium 100 mg capsule 100 mg PO BID #60 caps 05/06/24 05/09/24 Rx lidocaine 5 % topical patch 1 patch transdermal DAILY #15 ea 05/06/24 05/09/24 Rx oxycodone 5 mg tablet 2.5 mg (1/2 x 5 mg) PO Q4H PRN 05/06/24 05/09/24 Rx pain #10 tabs polyethylene glycol 3350 17 gram 17 g PO DAILY #30 ea 05/06/24 05/09/24 Rx oral powder packet (Miralax) methocarbamol 500 mg tablet 500 mg PO TID PRN muscle spasm 05/09/24 05/09/24 History Past Med/Surg History Problem List (Updated 05/04/24 @ 10:58 by LV Power) Sacral fracture (Acute ~05/03/24) Acute nondisplaced sacral alar fracture Hyperglycemia Leukocytosis Ambulatory dysfunction (Acute) Closed fracture of sacrum (Acute 05/03/24) Left sided sciatica Left leg pain Acute left-sided low back pain (Acute) Acute nondisplaced left sacral alar fractures. Acute pain of left hip (Acute) History of ankylosing spondylitis Chronic kidney disease, stage 3 Pancreatic lesion 05/2021 CT showed 5mm side branch IPMN. Radiology reviewed study from 03/2020 and lesion grossly stable. Allergic rhinitis History of basal cell carcinoma Renal cyst (Acute) CAD, multiple vessel (Acute) Disc degeneration, lumbar (Acute) HLA-B27 positive arthropathy (Chronic) Hyperlipidemia (Acute) Osteopenia (Chronic) Prediabetes (Acute) Aortic stenosis Hx aortic valve replacement 09/2024 Hypertension (Chronic) Carotid stenosis (Acute) Medical History Gastroesophageal reflux disease TIA (transient ischemic attack) C. difficile colitis Surgical History History of tonsillectomy History of oral surgery History of cataract surgery Hx of heart artery stent Family History Mother Breast cancer Brother Coronary heart disease Hypertension Father Hypertension Coronary heart disease Grandmother (Maternal) Gastric cancer Grandfather (Maternal) Coronary heart disease Denies family history of Ovarian cancer Colorectal cancer Social History Smoking Status: Never smoker Second Hand Exposure: No; Do You Dip or Chew Tobacco: No; Hx Alcohol Use: No Hx Substance Use: No Preferred Language: Burundian Communication Ability: Effective Hearing Ability: Normal Brake Press Operator Required: No Beliefs That Will Affect Care: Bahai Bahai Beliefs: Baptism. marital status: / Current Living Situation: Alone current occupational status: retired Feels Safe at Home: Yes Childhood Exposure to Second-Hand Smoke: Yes Diet: regular caffeine: Yes Dental Care, Regularly: Yes Physical Activity Frequency: 1-2 Times per Week Seatbelt Use: always Sunscreen Use: Yes Assistive Devices: Cane and Walker Physical Exam Physical Exam: Physical Exam: General: In no acute distress, stated age, well-nourished, good hygiene HEENT: Normocephalic, atraumatic, no scleral icterus, pupils around round, symmetrical, and reactive to light, moist mucus membranes, trachea midline, no thyromegaly Chest/Pulm: No respiratory distress, symmetrical chest expansion, clear breath sounds throughout Cardiac: RRR, no murmurs noted Abdomen: Negative for ascites and bruising, normoactive bowel sounds, soft, non-tender to palpation throughout Musculoskeletal: Pain with palpation of the lower lumbar spine, left buttocks, and lateral aspect of the LLE until the proximal left knee, palpation of the muscles in the lower back, left buttocks, and lateral left LE cause significant muscle spasms/pain >Patient with decreased ROM of the LLE compared to right due to pain with flexion of the left hip Extremities: Radial, dorsalis pedis, and posterior tibial pulses are intact and symmetrical, no edema noted in the BL LE's Skin: Warm, dry, no rashes , lesions, or scars noted Neuro: Alert and oriented to person, place, month, year, and president, no focal defects, symmetrical sensation and distal reflexes in the BL LE's Psych: No acute distress, calm and cooperative during the exam Results & Data Results & Data Vital Signs (Past 12 Hours) Vital Signs Temp Pulse Pulse Resp BP BP Pulse Ox 05/03/24 14:17 80 18 140/61 97 05/03/24 12:11 134/78 05/03/24 10:58 36.9 C 66 20 176/68 H 97 O2 Del Method 05/03/24 14:17 Room Air 05/03/24 12:11 05/03/24 10:58 Room Air Laboratory Results Abnormal lab results 05/03/24 Range/Units 14:13 WBC 16.21 H (4.8-10.8) K/ul Neut # (Auto) 15.00 H (1.40-6.50) K/uL Lymph # (Auto) 0.75 L (1.20-3.40) K/uL BUN/Creatinine Ratio 24.5 H (10-20) Glucose 176 H (70-99(Fasting)) mg/dl Diagnostic Findings Hip/Pelvis X-Ray 05/03/24 11:01 XR hip KAMILAH 2v w pelvis CLINICAL HISTORY: pain TECHNIQUE: 2 views of the bilateral hips and single frontal view of the pelvis were obtained. Comparison: Comparison is made to CT abdomen pelvis 04/27/2024 FINDINGS: There is no evidence of an acute fracture. Mild degenerative changes are seen in the hip joints and prominent spinal osteoarthritic changes. Vascular calcifications are noted. IMPRESSION: Mild osteoarthritic changes as above. No evidence of acute fracture. ACT 112: Negative or not required by law. Electronically signed by: Aníbal Cain M.D. 05/03/2024 1:[address] 05/03/24 12:24 CT lumbar spine wo con HISTORY: 83 years-old Female low back pain radiating into left hip acute pain of the pelvis and low back COMPARISON: CT abdomen and pelvis and CT left hip 04/27/2024 TECHNIQUE: Multiple axial CT images of the lumbar spine were obtained without IV contrast. A dose lowering technique was used consistent with the principals of ALARA. FINDINGS: New from the prior study is an acute intra-articular nondisplaced left sacral alar fracture demonstrating mild comminution best seen on the coronal images. Possible extension into the left SI joint. Demineralized appearance of the bones. Mild degeneration of the bilateral SI joints. No acute lumbar spine fracture or subluxation identified. Multilevel degenerative changes of the lumbar spine redemonstrated including moderate disc space narrowing and spondylitic spurring at L3-L4 L4-L5. Central canal and neural foramina are better assessed by MRI. Posterior annular disc bulging with disc osteophyte complex relation to result in multilevel foraminal stenosis. No high-grade central canal narrowing identified on this exam. Renal cysts redemonstrated. Colonic diverticulosis. IMPRESSION: 1. Acute nondisplaced left sacral alar fractures. 2. No acute fracture or subluxation of the lumbar spine. ACT 112: Negative or not required by law. The above report was generated using voice recognition software. It may contain grammatical, syntax or spelling errors. Electronically signed by: Sanjay Clay M.D. 05/03/2024 1:20 PM Code Status & VTE Plan Code Status Full code VTE Prophylaxis Plan VTE Prophylaxis will be ordered: Yes Supervising Physician Co-Signing Physician Notes I personally saw and examined the patient. I verified all self points and agree with Amadeo Roldan PA-C with the following exceptions and/or additions: 83 year old female presents to the O/E A/P PG Care Time/CCT Total # of Minutes Spent Total Time Spent with Patient: Total time spent is greater than 50% in coordination of care (as documented) at patient's floor/unit and/or counseling patient: Coding [place] [address] INT INP/OBS CARE 2/55MIN Patient Type Established Medical Decision Making Moderate Complexity Diagnoses Ambulatory dysfunction R26.2 Closed fracture of sacrum S32.10XA Leukocytosis D72.829 Left leg pain M79.605 Hyperglycemia R73.9 Hypertension I10 CAD, multiple vessel I25.10
[2024-05-03] MEDS: ACETAMINOPHEN 500 MG TAB PO STA (16:25)
[2024-05-03] MEDS: Patient's HEIGHT &/or WEIGHT Needed STA (22:12)
[2024-05-03] MEDS: Patient's HEIGHT &/or WEIGHT Needed SCH (22:12)
[2024-05-03] MEDS: ACETAMINOPHEN 325 MG TAB PO SCH (22:16)
[2024-05-03] MEDS ORDERED: Nursing to Pharmacy Communication SCH (23:00)
[2024-05-03] MEDS: amLODIPine BESYLATE 5 MG TAB PO SCH (23:44)
[2024-05-03] MEDS: ROSUVASTATIN CALCIUM 20 MG TAB PO SCH (23:45)
[2024-05-04] MEDS: ENOXAPARIN INJ 40 MG/0.4 ML SYR SQ SCH (00:04)
[2024-05-04 06:42] LABS: Basophils # (auto) 0.06 K/uL (0.00-0.20); Basophils % (auto) 0.5 %; Eosinophils # (auto) 0.02 K/uL (0.00-0.50); Eosinophils % (auto) 0.2 %; Hematocrit (blood only) 46.9 % (37.0-47.0); Hemoglobin 15.4 g/dl (12.0-16.0); Immature Granulocytes # (auto) 0.06 K/uL (0.01-0.20); Immature Granulocytes % (auto) 0.5 %; Lymphocytes % (auto) 13.1 %; Mean Corpuscular Hemoglobin 30.8 pg (25.0-34.0); Mean Corpuscular Hgb Conc 32.8 g/dL (32.0-36.0); Mean Corpuscular Volume 93.8 fL (80.0-100.0); Mean Platelet Volume 10.4 fL (9.4-12.4); Monocytes # (auto) 0.98 K/uL (0.11-0.59); Neutrophils # (auto) 9.54 K/uL (1.40-6.50); Neutrophils % (auto) 77.7 %; Platelet Count 172 K/uL (130-400); RDW Coefficient of Variation 13.1 % (11.5-14.5); RDW Standard Deviation 44.6 fL (36.4-46.3); White Blood Count 12.26 K/ul (4.8-10.8)
--- NOTE | 2024-05-04 06:51 | Orthopedic Consultation ---
Date of Service May 04, 2024 Assessment & Plan (1) Closed fracture of sacrum: 83-year-old female with a son with a history of left-sided buttock pain consistent with a nondisplaced sacral insufficiency ala fracture. Somewhat related to osteoporosis and likely her lifting and activity several days ago. This is a stable fracture and will heal on its own. She can weight-bear as tolerated. This can be uncomfortable for the first 2 to 4 weeks and then get better and take about 3 months for total healing. Once again she can fully weight-bear as tolerated. Can start PT. She lives by herself and will likely need a skilled nurse or rehab stay. She should follow-up in our clinic in 1 month. Any orthopedic questions can be direct me at [phone] (2) Ambulatory dysfunction: (3) Left sided sciatica: History of Present Illness Reason for Consultation: . Left sacral ala fracture. Requesting Physician: . Attending Physician: Dereje Peralta MD . Patient is a 83-year-old fairly healthy female lives [facility] who developed the relatively acute onset of a left buttock and hip pain just several days ago. She was apparently out cleaning her garage and doing a lot of lifting and then shortly thereafter started having this pain. She had more difficulty getting around. She was having to use a cane and now resorted to a walker. She presented emergency room and is admitted for ambulating difficulties. No groin pain. No fall. No history of trauma. No other pains. Allergies Allergy/AdvReac Type Severity Reaction Status Date / Time Penicillins Allergy Mild Verified 05/03/24 14:09 Sulfa (Sulfonamide Allergy Mild unknown Verified 05/03/24 14:09 Antibiotics) alendronate sodium Allergy Unknown . Verified 05/03/24 14:09 atorvastatin Allergy Unknown MUSCLE Verified 05/03/24 14:09 ACHES cephalexin Allergy Unknown UNKNOWN Verified 05/03/24 14:09 Cipro AdvReac Unknown N/V Verified 01/22/18 10:20 ciprofloxacin AdvReac Unknown N/V Verified 05/03/24 14:09 Ibandronic Acid Allergy Unknown . Uncoded 05/03/24 14:09 Home Medications Medication Instructions Recorded Confirmed Type acetaminophen 500 mg tablet 500 mg PO Q4H PRN Pain 02/02/19 05/03/24 History multivitamin 1 tab PO QAM 02/02/19 05/03/24 History nitroglycerin 0.4 mg sublingual 0.4 mg sublingual DIRECTED PRN 02/02/19 05/03/24 History tablet Chest Pain rosuvastatin 40 mg tablet 40 mg PO HS 02/02/19 05/03/24 History calcium carbonate (Calcium 500) 1,000 mg PO QAM 02/15/19 05/03/24 History isosorbide mononitrate 120 mg 120 mg PO QAM 02/15/19 05/03/24 History tablet,extended release 24 hr omega 0-uzl-vrh-fish oil 1,000 mg 1 cap PO QPM 02/15/19 05/03/24 History (120 mg-180 mg) capsule (Fish Oil) ascorbic acid (vitamin C) 500 mg 500 mg PO QAM 07/16/19 05/03/24 History tablet amlodipine 5 mg tablet 5 mg PO PM 04/08/20 05/03/24 History diclofenac sodium 1 % topical gel 2 g topical QID #200 grams 10/08/22 05/03/24 Rx (Voltaren Arthritis Pain) aspirin 81 mg chewable tablet 81 mg PO DAILY 05/30/23 05/03/24 History lactobacillus combination no.4 3 3,000 mmu cells PO DAILY 06/15/23 05/03/24 History billion cell capsule (Probiotic) cyanocobalamin (vitamin B-12) 500 500 mcg PO DAILY #30 tabs 07/22/23 05/03/24 Rx mcg tablet (Vitamin B-12) metoprolol succinate 25 mg 25 mg PO DAILY 09/26/23 05/03/24 History tablet,extended release 24 hr (Toprol XL) tramadol 50 mg tablet 50 mg PO Q8H PRN pain (scale score 04/27/24 05/03/24 Rx 7-10) #15 tabs famotidine 40 mg tablet 40 mg PO DAILY #30 tabs 05/02/24 05/03/24 Rx prednisone 10 mg tablet See Rx Instructions PO DAILY #30 05/02/24 05/03/24 Rx tabs Past Med/Surg History Problem List Hyperglycemia Leukocytosis Ambulatory dysfunction (Acute) Closed fracture of sacrum (Acute 05/03/24) Left sided sciatica Left leg pain Acute left-sided low back pain (Acute) Acute nondisplaced left sacral alar fractures. Acute pain of left hip (Acute) History of ankylosing spondylitis Chronic kidney disease, stage 3 Pancreatic lesion 05/2021 CT showed 5mm side branch IPMN. Radiology reviewed study from 03/2020 and lesion grossly stable. Allergic rhinitis History of basal cell carcinoma Renal cyst (Acute) CAD, multiple vessel (Acute) Disc degeneration, lumbar (Acute) HLA-B27 positive arthropathy (Chronic) Hyperlipidemia (Acute) Osteopenia (Chronic) Prediabetes (Acute) Aortic stenosis Hx aortic valve replacement 09/2024 Hypertension (Chronic) Carotid stenosis (Acute) Medical History Gastroesophageal reflux disease TIA (transient ischemic attack) C. difficile colitis Surgical History History of tonsillectomy History of oral surgery History of cataract surgery Hx of heart artery stent Family History Mother Breast cancer Brother Coronary heart disease Hypertension Father Hypertension Coronary heart disease Grandmother (Maternal) Gastric cancer Grandfather (Maternal) Coronary heart disease Denies family history of Ovarian cancer Colorectal cancer Social History Smoking Status: Never smoker Second Hand Exposure: No; Do You Dip or Chew Tobacco: No; Tobacco Cessation Education Requested by Patient: No Hx Alcohol Use: No Hx Substance Use: No Preferred Language: Kyrgyz Communication Ability: Effective Hearing Ability: Normal Burlap Worker Required: No Beliefs That Will Affect Care: Nondenominational Nondenominational Beliefs: Scientology. marital status: / Current Living Situation: Alone current occupational status: retired Other Information That Helps Us Care for You: No Feels Safe at Home: Yes Safety Concerns: Feels Safe At This Time Childhood Exposure to Second-Hand Smoke: Yes Diet: regular caffeine: Yes Dental Care, Regularly: Yes Physical Activity Frequency: 1-2 Times per Week Seatbelt Use: always Sunscreen Use: Yes Assistive Devices: Cane, Glasses, Hospital Bed and Walker Review of Systems All systems reviewed & are unremarkable except as noted in HPI & below. Physical Exam . Physical examination reveals a pleasant healthy appearing a 83-year-old female. Lying bed looks comfortable. Examination of the legs reveals no obvious deformity. Her leg lengths are equal. She is no pain at all with passive hip motion. She can do a straight leg raise on both sides. No knee effusions. She is tender over the posterior left-sided buttock area. She is neurologically intact. Results & Data Results & Data Laboratory Results . Diagnostic Findings . Multiple images and CT scan of the pelvis was reviewed. In summary this show a nondisplaced left-sided sacral ala fracture. No other fractures. Minimal arthritic change. PG Care Time/CCT Total # of Minutes Spent Total Time Spent with Patient: Total time spent is greater than 50% in coordination of care (as documented) at patient's floor/unit and/or counseling patient: Coding Level of Care Code 96913 IN/OBS CONSULT LVL 4,60M Diagnoses Closed fracture of sacrum S32.10XA Ambulatory dysfunction R26.2 Left sided sciatica M54.32
[2024-05-04 07:01] LABS: BUN Creatinine Ratio 28.9 (10-20); Creatinine Clr Calc Pharmacy 39.2 ml/min; Est GFR (African American) 74.5 ml/min; Est GFR (Non-African American) 64.3 ml/min; Magnesium 2.2 mg/dl (1.7-2.4); Potassium 4.4 mmol/L (3.5-5.1)
[2024-05-04 07:13] LABS: Prothrombin Time 10.4 Seconds (9.0-12.0)
--- NOTE | 2024-05-04 08:16 | Hospitalist Progress Note ---
Date of Service May 04, 2024 Assessment & Plan (1) Closed fracture of sacrum: Plan: 83 yo female presented with sharp lower back pain after moving multiple boxes at her home 4 days prior to pain starting and was seen in ER 04/27 and PCP 05/02 where she started prednisone taper (started 05/02) with progression of symptoms to the point where she was unable to bear weight on the left lower extremity due to pain. Given muscle relater in ER with significant improvement and admitted for imaging/pain control/orthopedics evaluation/therapy and likely placement as she lives alone. Hip/pelvis imaging negative for acute fracture CT lumbar spine noting no acute fracture or subluxation of lumbar spine. Notable for acute nondisplaced left sacral alar fracture Osteoporotic left sacral ala fracture Orthopedics consulted, Dr Godinez -suspects related to osteoporosis and likely lifting/activity prior to admission -stable fracture and will heal on it's own, can weight-bear as tolerated and likely to be uncomfortable for first 2-4 wks, then better and about 3 months for healing Pain control, bowel regimen Pain control with scheduled Tylenol, lidocaine patch, and as needed methocarbamol - Discussed and adding oxycodone 2.5mg po q4h prn, also heating pad - Will add colace BID, miralax daily to prevent constipation Fall precautions Checking Vit D , can add to AM labs PT/OT ordered, likely will need acute rehab vs SNF as lives alone DVT proph: Lovenox SQ while inpatient. pepcid continued 20mg po daily for GI proph (started on 40mg PO while on prednisone for above, not usual at baseline. 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 not on nsaids at baseline Monitor therapy evals/CM to follow (2) Ambulatory dysfunction: Plan: suspected 2nd to above Leukocytosis on admission however had been on steroids, can check CXR for completeness Fall precautions, therapy evals. Likely will need SNF/rehab at [place] (3) Leukocytosis: Plan: WBC elevation on admission, possibly related to recent prednisone. UA no evidence for infection CXR ordered to r/o other causes but WBC trending down on repeat/afebrile (4) Left leg pain: Plan: See above, also has hx sciatica however steroids ineffective. Tx as above (5) Hyperglycemia: Plan: BSG elevation on admit 2nd to steroid use No further elevation since steroids held and can monitor given Glu 100 on AM labs (6) Hypertension: Plan: Chronic/stable in setting of pain Continues amlodipine daily (7) CAD, multiple vessel: Plan: Hx CAD s/p PCI 2014, severe s/p TCAR in May 2023 Continue aspirin, statin, metoprolol, Imdur No recent chest pain reported Plan continued inpatient stay, awaiting therapy evals/likely need for rehab/placement given age/lives alone Admission and Anticipated Discharge Date Admission Date: May 03, 2024 Supervising Physician Co-Signing Physician Notes The patient was not seen by me. The chart was reviewed. Case discussed with NOHEMI Farley. Agree with assessment and plan Subjective Evaluated this morning, sitting in bed, no acute distress at this time but painful w/ movements. Increased pain while sitting up in bed to her L hip/but tocks region, improvement in pain on palpation and just got methocarbamol about 20 minutes ago. Did take 1 dose of prednisone prior to admission, likely cause for elevated WBC. No fever/chills, chest pain, shortness of breath, abdominal pain, urinary frequency/burning. Discussed low dose oxycodone, she has never really taken medications like this before and will use 2.5mg as needed and can adjust. Does live alone. Discussed therapy evals and likely need for rehab. Questions/concerns addressed at this time. Physical Exam Physical Exam: General: 83yo female sitting in bed, NAD but increased pain w/ raising bed up to her left hip/buttocks Head atraumatic, normocephalic, mmm, trachea midline Resp: even/unlabored, no w/c/r, on room air CV: RRR, no significant edema, pulses palpable GI: +BS, soft/NT MSK/Neuro: tenderness over posterior left buttocks region, no obvious bony step off, NVI, pulses palpable, calves nontender, ROM intact but pain to buttocks w/ sitting up in bed Psych: AOx3, cooperative with exam Results & Data Results & Data Vital Signs (Past 12 Hours) Vital Signs Temp Pulse Resp BP Pulse Ox Pulse Ox O2 Del Method 05/04/24 07:24 36.4 C L 59 L 15 147/68 H 95 Room Air 05/03/24 21:20 Room Air 05/03/24 21:20 98 05/03/24 21:20 Room Air 05/03/24 21:20 36.6 C 60 18 153/73 H 98 Room Air 05/03/24 21:20 36.6 C 60 18 153/73 H 98 Room Air O2 Del Method 05/04/24 07:24 05/03/24 21:20 05/03/24 21:20 Room Air 05/03/24 21:20 05/03/24 21:20 05/03/24 21:20 Laboratory Results 05/04/24 05/03/24 05/03/24 Range/Units 06:00 14:14 14:13 WBC 12.26 H 16.21 H (4.8-10.8) K/ul RBC 5.00 4.76 (4.20-5.40) M/uL Hgb 15.4 14.5 (12.0-16.0) g/dl Hct 46.9 43.8 (37.0-47.0) % MCV 93.8 92.0 (80.0-100.0) fL MCH 30.8 30.5 (25.0-34.0) pg MCHC 32.8 33.1 (32.0-36.0) g/dL RDW Std Deviation 44.6 43.1 (36.4-46.3) fL RDW Coeff of Thanh 13.1 12.8 (11.5-14.5) % Plt Count 172 155 (130-400) K/uL MPV 10.4 10.6 (9.4-12.4) fL Immature Gran % (Auto) 0.5 0.5 % Neut % (Auto) 77.7 92.5 % Lymph % (Auto) 13.1 4.6 % [place] % (Auto) 8.0 2.2 % Eos % (Auto) 0.2 0.0 % Baso % (Auto) 0.5 0.2 % Neut # (Auto) 9.54 H 15.00 H (1.40-6.50) K/uL Lymph # (Auto) 1.60 0.75 L (1.20-3.40) K/uL [place] # (Auto) 0.98 H 0.35 (0.11-0.59) K/uL Eos # (Auto) 0.02 0.00 (0.00-0.50) K/uL Baso # (Auto) 0.06 0.03 (0.00-0.20) K/uL Immature Gran # (Auto) 0.06 0.08 (0.01-0.20) K/uL PT 10.4 (9.0-12.0) Seconds INR 1.0 (0.9-1.1) Sodium 144 143 (136-145) mmol/L Potassium 4.4 4.0 (3.5-5.1) mmol/L Chloride 105 105 (98-107) mmol/L Carbon Dioxide 33 H 28 (21-32) mmol/L Anion Gap 6 10 (3-11) BUN 24 H 23 (6-23) mg/dl Creatinine 0.83 0.94 (0.6-1.2) mg/dl Est Cr Clr Drug Dosing 39.2 Not Reportable Est GFR ( Amer) 74.5 64.1 ml/min Est GFR (Non-Af Amer) 64.3 55.3 ml/min BUN/Creatinine Ratio 28.9 H 24.5 H (10-20) Glucose 100 H 176 H (70-99(Fasting)) mg/dl Calcium 10.0 10.3 (8.6-10.3) mg/dl Magnesium 2.2 (1.7-2.4) mg/dl Urine Color Yellow Urine Appearance Clear (Clear) Urine pH 6.5 (4.5-7.5) Ur Specific [place] 1.005 (1.000-1.030) Urine Protein Negative (Negative) Urine Glucose (UA) Negative (Negative) Urine Ketones Negative (Negative) Urine Blood Negative (Negative) Urine Nitrite Negative (Negative) Urine Bilirubin Negative (Negative) Urine Urobilinogen Negative (Negative) Ur Leukocyte Esterase Negative (Negative) Diagnostic Findings Hip/Pelvis X-Ray 05/03/24 11:01 XR hip KAMILAH 2v w pelvis CLINICAL HISTORY: pain TECHNIQUE: 2 views of the bilateral hips and single frontal view of the pelvis were obtained. Comparison: Comparison is made to CT abdomen pelvis 04/27/2024 FINDINGS: There is no evidence of an acute fracture. Mild degenerative changes are seen in the hip joints and prominent spinal osteoarthritic changes. Vascular calcifications are noted. IMPRESSION: Mild osteoarthritic changes as above. No evidence of acute fracture. ACT 112: Negative or not required by law. Electronically signed by: Aníbal Cain M.D. 05/03/2024 1:[address] 05/03/24 12:24 CT lumbar spine wo con HISTORY: 83 years-old Female low back pain radiating into left hip acute pain of the pelvis and low back COMPARISON: CT abdomen and pelvis and CT left hip 04/27/2024 TECHNIQUE: Multiple axial CT images of the lumbar spine were obtained without IV contrast. A dose lowering technique was used consistent with the principals of ALARA. FINDINGS: New from the prior study is an acute intra-articular nondisplaced left sacral alar fracture demonstrating mild comminution best seen on the coronal images. Possible extension into the left SI joint. Demineralized appearance of the bones. Mild degeneration of the bilateral SI joints. No acute lumbar spine fracture or subluxation identified. Multilevel degenerative changes of the lumbar spine redemonstrated including moderate disc space narrowing and spondylitic spurring at L3-L4 L4-L5. Central canal and neural foramina are better assessed by MRI. Posterior annular disc bulging with disc osteophyte complex relation to result in multilevel foraminal stenosis. No high-grade central canal narrowing identified on this exam. Renal cysts redemonstrated. Colonic diverticulosis. IMPRESSION: 1. Acute nondisplaced left sacral alar fractures. 2. No acute fracture or subluxation of the lumbar spine. ACT 112: Negative or not required by law. The above report was generated using voice recognition software. It may contain grammatical, syntax or spelling errors. Electronically signed by: Sanjay Clay M.D. 05/03/2024 1:20 PM PG Care Time/CCT Total # of Minutes Spent Total Time Spent with Patient: Total time spent is greater than 50% in coordination of care (as documented) at patient's floor/unit and/or counseling patient: Coding Level of Care Code 64345 SUB INP/OBS CARE 2/35MIN Diagnoses Closed fracture of sacrum S32.10XA Ambulatory dysfunction R26.2 Leukocytosis D72.829 Left leg pain M79.605 Hyperglycemia R73.9 Hypertension I10 CAD, multiple vessel I25.10
[2024-05-04] MEDS: METHOCARBAMOL 500 MG TABLET PO PRN (08:41)
[2024-05-04] MEDS: DOCUSATE SODIUM 100 MG CAP PO SCH (09:10)
[2024-05-04] MEDS: ASPIRIN 81 MG CHEW PO SCH (09:10)
[2024-05-04] MEDS: FAMOTIDINE 20 MG TAB PO SCH (09:10)
[2024-05-04] MEDS: amLODIPine BESYLATE 5 MG TAB PO SCH (09:11)
[2024-05-04] MEDS: CALCIUM CARBONATE 1250MG TAB PO SCH (09:11)
[2024-05-04] MEDS: ROSUVASTATIN CALCIUM 20 MG TAB PO SCH (09:11)
[2024-05-04] MEDS: ISOSORBIDE MONO EXTENDED REL 60 MG TABCR PO SCH (09:11)
[2024-05-04] MEDS: METOPROLOL SUCC 25MG EXT REL TAB PO SCH (09:12)
[2024-05-04] MEDS: POLYETHYLENE (MIRALAX) 17 GM PACK PO SCH (09:13)
[2024-05-04] MEDS ORDERED: oxyCODONE HCL IR 5 MG TAB (IMMEDIATE RELEASE) PO PRN (09:28)
--- NOTE | 2024-05-04 09:40 | XRay Report ---
XR chest 1V portable HISTORY: 83 years-old Female leukocytosis COMPARISON: 06/15/2023 TECHNIQUE: AP view of the chest FINDINGS: Cardiac silhouette is enlarged. Aortic valvular endograft. Mild right hemidiaphragm elevation. Chroni c interstitial coarsening. No pneumothorax, pleural effusion or airspace consolidation. Bones appear grossly intact. IMPRESSION: Cardiomegaly without acute process. ACT 112: Negative or not required by law. The above report was generated using voice recognition software. It may contain grammatical, syntax o r spelling errors. Electronically signed by: Sanjay Clay M.D. 05/04/2024 9:39 AM
[2024-05-04] MEDS: oxyCODONE HCL IR 5 MG TAB (IMMEDIATE RELEASE) PO PRN (21:53)
[2024-05-04] MEDS: MELATONIN 3 MG TAB PO PRN (21:54)
[2024-05-05 06:17] LABS: BUN Creatinine Ratio 31.2 (10-20); Creatinine Clr Calc Pharmacy 29.8 ml/min; Est GFR (African American) 53.6 ml/min; Est GFR (Non-African American) 46.3 ml/min; Potassium 4.2 mmol/L (3.5-5.1)
[2024-05-05 06:42] LABS: Hematocrit (blood only) 37.8 % (37.0-47.0); Hemoglobin 12.5 g/dl (12.0-16.0); Mean Corpuscular Hemoglobin 30.8 pg (25.0-34.0); Mean Corpuscular Hgb Conc 33.1 g/dL (32.0-36.0); Mean Corpuscular Volume 93.1 fL (80.0-100.0); Mean Platelet Volume 10.5 fL (9.4-12.4); Platelet Count 150 K/uL (130-400); RDW Coefficient of Variation 13.2 % (11.5-14.5); RDW Standard Deviation 44.7 fL (36.4-46.3); Red Blood Count 4.06 M/uL (4.20-5.40); White Blood Count 8.13 K/ul (4.8-10.8)
[2024-05-05 07:29] LABS: Basophils # (auto) 0.09 K/uL (0.00-0.20); Basophils % (auto) 1.1 %; Eosinophils # (auto) 0.13 K/uL (0.00-0.50); Eosinophils % (auto) 1.6 %; Immature Granulocytes # (auto) 0.02 K/uL (0.01-0.20); Immature Granulocytes % (auto) 0.2 %; Lymphocytes # (auto) 1.78 K/uL (1.20-3.40); Lymphocytes % (auto) 21.9 %; Monocytes # (auto) 0.93 K/uL (0.11-0.59); Monocytes % (auto) 11.4 %; Neutrophils # (auto) 5.18 K/uL (1.40-6.50); Neutrophils % (auto) 63.8 %
--- NOTE | 2024-05-05 07:53 | Hospitalist Progress Note ---
Date of Service May 05, 2024 Assessment & Plan (1) Closed fracture of sacrum: Plan: 83 yo female presented with sharp lower back pain after moving multiple boxes at her home 4 days prior to pain starting and was seen in ER 04/27 and PCP 05/02 where she started prednisone taper (started 05/02) with progression of symptoms to the point where she was unable to bear weight on the left lower extremity due to pain. Given muscle relater in ER with significant improvement and admitted for imaging/pain control/orthopedics evaluation/therapy and likely placement as she lives alone. Hip/pelvis imaging negative for acute fracture CT lumbar spine noting no acute fracture or subluxation of lumbar spine. Notable for acute nondisplaced left sacral alar fracture Osteoporotic left sacral ala fracture Orthopedics consulted, Dr Godinez -suspects related to osteoporosis and likely lifting/activity prior to admission -stable fracture and will heal on it's own, can weight-bear as tolerated and likely to be uncomfortable for first 2-4 wks, then better and about 3 months for healing 05/05 WBC normalized, afebrile. CXR w/o infectious process. Suspect elevation on admission 2nd to recent prednisone use Continue pain control-- tylenol 650mg PO q6h scheduled, lidocaine patch. Methocarbamol available 500mg TID prn. +BM 05/05 (prior to opiate) Also added low dose oxycodone 2.5mg AND THIS HAS MADE SIGNIFICANT IMPROVEMENT on exam today and able to sit up in bed/participate well with therapy. Review of therapy notes w/ ability to return home w/ RW. Rx to CM. DIscussed monitoring needs overnight/ensure no issues on the oxycodone and to continue bowel regimen w/ stool softener colace BID/miralax daily while on such to prevent constipation. 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 not on nsaids at baseline VIt D 44.7, wnl DVT proph: Lovenox SQ. (2) Ambulatory dysfunction: Plan: suspected 2nd to above MUCH improved w/ low dose oxycodone and improvement with ambulation w/ therapy. Fall precautions in place and hopeful able to now dc to home w/ HHPT given significant improvement (3) Leukocytosis: Plan: RESOLVED - suspected 2nd to recent steroid use [employer]. -UA negative, CXR w/o acute process and remains afebrile (4) Left leg pain: Plan: See above, also has hx sciatica however steroids ineffective. Tx as above (5) Hyperglycemia: Plan: BSG elevation on admit 2nd to steroid use No further elevation since steroids held and can monitor given Glu 105 on AM labs (6) Hypertension: Plan: Chronic/stable in setting of pain but much better now w/ low dose oxy as above, 135/69 Continues amlodipine daily Monitor (7) CAD, multiple vessel: Plan: Hx CAD s/p PCI 2014, severe s/p TCAR in May 2023 Continue aspirin, statin, metoprolol, Imdur No recent chest pain reported Plan continued inpatient stay but hopeful for potential dc in AM pending status on low dose oxycodone Admission and Anticipated Discharge Date Admission Date: May 03, 2024 Supervising Physician Co-Signing Physician Notes The patient was not seen by me. The chart was reviewed. Case discussed with NOHEMI Farley. Agree with assessment and plan Subjective Evaluated this morning, sitting up in bed. Looks MUCH improved. Pain controlled. Unsure if she took any oxycodone but discussed is available. Moved her bowels this morning. Anticipating rehab, will notify CM of want for [facility] as worked w/ PT this morning. Physical Exam Physical Exam: General: 83yo female sitting up at the side of the bed, friends in room, appears MUCH improved Head atraumatic, normocephalic, mmm, trachea midline Resp: even/unlabored, no w/c/r, on room air CV: RRR, no significant edema, pulses palpable GI: +BS, soft/NT MSK/Neuro: tenderness over posterior left buttocks region/region of fracture but able to sit up in bed today/ambulate with therapy with a walker with MUCH improvement in pain control Psych: AOx3, cooperative with exam Results & Data Results & Data Vital Signs (Past 12 Hours) Vital Signs Temp Pulse Pulse Resp BP Pulse Ox Pulse Ox 05/05/24 07:10 36.7 C 55 L 16 135/69 96 05/04/24 20:20 36.5 C 66 14 129/64 98 05/04/24 20:10 05/04/24 20:10 98 O2 Del Method O2 Del Method 05/05/24 07:10 Room Air 05/04/24 20:20 Room Air 05/04/24 20:10 Room Air 05/04/24 20:10 Room Air Laboratory Results 05/05/24 Range/Units 05:39 WBC 8.13 (4.8-10.8) K/ul RBC 4.06 L (4.20-5.40) M/uL Hgb 12.5 D (12.0-16.0) g/dl Hct 37.8 (37.0-47.0) % MCV 93.1 (80.0-100.0) fL MCH 30.8 (25.0-34.0) pg MCHC 33.1 (32.0-36.0) g/dL RDW Std Deviation 44.7 (36.4-46.3) fL RDW Coeff of Thanh 13.2 (11.5-14.5) % Plt Count 150 (130-400) K/uL MPV 10.5 (9.4-12.4) fL Immature Gran % (Auto) 0.2 % Neut % (Auto) 63.8 % Lymph % (Auto) 21.9 % [place] % (Auto) 11.4 % Eos % (Auto) 1.6 % Baso % (Auto) 1.1 % Neut # (Auto) 5.18 (1.40-6.50) K/uL Lymph # (Auto) 1.78 (1.20-3.40) K/uL [place] # (Auto) 0.93 H (0.11-0.59) K/uL Eos # (Auto) 0.13 (0.00-0.50) K/uL Baso # (Auto) 0.09 (0.00-0.20) K/uL Immature Gran # (Auto) 0.02 (0.01-0.20) K/uL Sodium 139 (136-145) mmol/L Potassium 4.2 (3.5-5.1) mmol/L Chloride 103 (98-107) mmol/L Carbon Dioxide 31 (21-32) mmol/L Anion Gap 5 (3-11) BUN 34 H (6-23) mg/dl Creatinine 1.09 (0.6-1.2) mg/dl Est Cr Clr Drug Dosing 29.8 ml/min Est GFR ( Amer) 53.6 ml/min Est GFR (Non-Af Amer) 46.3 ml/min BUN/Creatinine Ratio 31.2 H (10-20) Glucose 105 H (70-99(Fasting)) mg/dl Calcium 9.0 (8.6-10.3) mg/dl Magnesium 2.0 (1.7-2.4) mg/dl PG Care Time/CCT Total # of Minutes Spent Total Time Spent with Patient: Total time spent is greater than 50% in coordination of care (as documented) at patient's floor/unit and/or counseling patient: Coding Level of Care Code 49722 SUB INP/OBS CARE 235MIN Diagnoses Closed fracture of sacrum S32.10XA Ambulatory dysfunction R26.2 Leukocytosis D72.829 Left leg pain M79.605 Hyperglycemia R73.9 Hypertension I10 CAD, multiple vessel I25.10
[2024-05-05] MEDS: ENOXAPARIN INJ 30 MG/0.3 ML SYR SQ SCH (20:10)
[2024-05-05] MEDS: LIDOCAINE 5% 1 PATCH TD STA (23:11)
[2024-05-06 06:33] LABS: Basophils # (auto) 0.08 K/uL (0.00-0.20); Basophils % (auto) 1.2 %; Eosinophils # (auto) 0.13 K/uL (0.00-0.50); Hematocrit (blood only) 38.4 % (37.0-47.0); Hemoglobin 12.8 g/dl (12.0-16.0); Immature Granulocytes # (auto) 0.02 K/uL (0.01-0.20); Immature Granulocytes % (auto) 0.3 %; Lymphocytes # (auto) 1.16 K/uL (1.20-3.40); Lymphocytes % (auto) 17.6 %; Mean Corpuscular Hemoglobin 31.4 pg (25.0-34.0); Mean Corpuscular Hgb Conc 33.3 g/dL (32.0-36.0); Mean Corpuscular Volume 94.3 fL (80.0-100.0); Mean Platelet Volume 10.6 fL (9.4-12.4); Monocytes # (auto) 0.78 K/uL (0.11-0.59); Monocytes % (auto) 11.8 %; Neutrophils # (auto) 4.43 K/uL (1.40-6.50); Neutrophils % (auto) 67.1 %; Platelet Count 142 K/uL (130-400); RDW Coefficient of Variation 13.2 % (11.5-14.5); RDW Standard Deviation 45.1 fL (36.4-46.3); Red Blood Count 4.07 M/uL (4.20-5.40)
[2024-05-06 07:07] LABS: BUN Creatinine Ratio 29.6 (10-20); Calcium 9.3 mg/dl (8.6-10.3); Creatinine Clr Calc Pharmacy 40.2 ml/min; Est GFR (African American) 76.8 ml/min; Est GFR (Non-African American) 66.2 ml/min; Potassium 4.3 mmol/L (3.5-5.1)
--- NOTE | 2024-05-06 08:05 | Hospitalist Progress Note ---
Date of Service May 06, 2024 Assessment & Plan (1) Closed fracture of sacrum: Plan: 83 yo female presented with sharp lower back pain after moving multiple boxes at her home 4 days prior to pain starting and was seen in ER 04/27 and PCP 05/02 where she started prednisone taper (started 05/02) with progression of symptoms to the point where she was unable to bear weight on the left lower extremity due to pain. Given muscle relater in ER with significant improvement and admitted for imaging/pain control/orthopedics evaluation/therapy and likely placement as she lives alone. Hip/pelvis imaging negative for acute fracture CT lumbar spine noting no acute fracture or subluxation of lumbar spine. Notable for acute nondisplaced left sacral alar fracture Osteoporotic left sacral ala fracture Orthopedics consulted, Dr Godinez -suspects related to osteoporosis and likely lifting/activity prior to admission -stable fracture and will heal on it's own, can weight-bear as tolerated and likely to be uncomfortable for first 2-4 wks, then better and about 3 months for healing 05/05 WBC normalized, afebrile. CXR w/o infectious process. Suspect elevation on admission 2nd to recent prednisone use Continue pain control-- tylenol 650mg PO q6h scheduled, lidocaine patch. Methocarbamol available 500mg TID prn. +BM 05/05 (prior to opiate) Also added low dose oxycodone 2.5mg AND THIS HAS MADE SIGNIFICANT IMPROVEMENT on exam today and able to sit up in bed/participate well with therapy. Review of therapy notes w/ ability to return home w/ RW. Rx to CM. Discussed monitoring needs overnight/ensure no issues on the oxycodone and to continue bowel regimen w/ stool softener colace BID/miralax daily while on such to prevent constipation. 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 not on nsaids at baseline VIt D 44.7, wnl 05/06 WBC wnl, afebrile. Hgb stable on repeat/no bleeding reported Little more pain today --> eval w/ family in room, likely overdid it yesterday given significant improvement and encouraged to ambulate but limit excessive movements to limit aggravating -Asked RN to provide dose methocarbamol for spasm, heating pad -Continue oxycodone as needed Meds received yesterday: 1 dose methocarbamol, 4 doses oxy for total 10mg/24hrs Continue bowel regimen -- +BM 05/05, additional bowel movement 05/06 w/ bowel regimen on pain control Discussed therapy evals, family in room able to stay w/ her for couple days if needed and will ave PT eval w/ steps to ensure able to return home. She did one step yesterday but has two steps to return home. Repeat PT eval placed for am/call and voicemail left for discussion for the repeat eval for steps as well If able, CM has rx to deliver RW to her room prior to dc and to arrange HHPT to begin this week DVT proph: Lovenox SQ (2) Ambulatory dysfunction: Plan: suspected 2nd to above MUCH improved w/ low dose oxycodone and improvement with ambulation w/ therapy 05/05 but overdid it and a little more painful today Ongoing pain control as above/repeat therapy evals and CM to arrange for HHPT if improvement/stable in AM given therapy eval and family able to stay with her (3) Leukocytosis: Plan: RESOLVED on repeat testing - suspected 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 UA/CXR negative on admission and remains afebrile (4) Left leg pain: Plan: See above, also has hx sciatica however steroids ineffective. Tx as above (5) Hyperglycemia: Plan: BSG elevation on admit 2nd to steroid use No further elevation since steroids held on am labs (6) Hypertension: Plan: Chronic/stable in setting of pain but much better now w/ low dose oxy as above, 115/61 Continues amlodipine daily Monitor (7) CAD, multiple vessel: Plan: Hx CAD s/p PCI 2014, severe s/p TCAR in May 2023 Continue aspirin, statin, metoprolol, Imdur No recent chest pain reported Plan continued stay overnight but if pain stable/able to do steps with therapy will plan for dc w/ family staying for a couple of days and HHPT to be arranged by CM Updated family in the room, son works here ([employer]urag) Admission and Anticipated Discharge Date Admission Date: May 03, 2024 Supervising Physician Co-Signing Physician Notes The patient was not seen by me. The chart was reviewed. Case discussed with NOHEMI Farley. Agree with assessment and plan Subjective Eval this morning, sitting up in bed, son/grandchildren in room. Did initially want to go home but then hesitant as had increased pain in evening, however possible she overdid it as was ambulating quite a bit. Having a little spasm today, will have RN administer methocarbamol. Also, lidocaine patch to be changed and will try some heat today. Discussed ongoing low dose oxycodone, she had moved bowels yesterday and again today w/ bowel regimen. Discussed therapy evals and unlikely able to get IP rehab given how well she did. Will ask PT to re-eval in AM about steps to ensure able to return home but family able to stay w/ her and can arrange HHPT in AM for dc home if stable overnight. No fever/chills, chest pain/shortness of breath. Questions/concerns addressed at this time. Physical Exam Physical Exam: General: 83yo female in bed, family in room, NAD, does have some increased pain/spasm with sitting up in bed Head atraumatic, normocephalic, mmm, trachea midline Resp: even/unlabored, no w/c/r, on room air CV: RRR, no significant edema, pulses palpable GI: +BS, soft/NT MSK/Neuro: tenderness over posterior left buttocks region/region of fracture but able to sit up in bed today with some assistance, RN to provide muscle relaxer/call for heating pad Psych: AOx3, cooperative with exam Results & Data Results & Data Vital Signs (Past 12 Hours) Vital Signs Temp Pulse Resp BP Pulse Ox O2 Del Method 05/06/24 07:34 36.6 C 67 16 115/61 96 Room Air 05/05/24 20:13 36.5 C 75 18 173/70 H 97 Room Air Laboratory Results 05/06/24 Range/Units 05:30 WBC 6.60 (4.8-10.8) K/ul RBC 4.07 L (4.20-5.40) M/uL Hgb 12.8 (12.0-16.0) g/dl Hct 38.4 (37.0-47.0) % MCV 94.3 (80.0-100.0) fL MCH 31.4 (25.0-34.0) pg MCHC 33.3 (32.0-36.0) g/dL RDW Std Deviation 45.1 (36.4-46.3) fL RDW Coeff of Thanh 13.2 (11.5-14.5) % Plt Count 142 (130-400) K/uL MPV 10.6 (9.4-12.4) fL Immature Gran % (Auto) 0.3 % Neut % (Auto) 67.1 % Lymph % (Auto) 17.6 % [place] % (Auto) 11.8 % Eos % (Auto) 2.0 % Baso % (Auto) 1.2 % Neut # (Auto) 4.43 (1.40-6.50) K/uL Lymph # (Auto) 1.16 L (1.20-3.40) K/uL [place] # (Auto) 0.78 H (0.11-0.59) K/uL Eos # (Auto) 0.13 (0.00-0.50) K/uL Baso # (Auto) 0.08 (0.00-0.20) K/uL Immature Gran # (Auto) 0.02 (0.01-0.20) K/uL Sodium 140 (136-145) mmol/L Potassium 4.3 (3.5-5.1) mmol/L Chloride 105 (98-107) mmol/L Carbon Dioxide 30 (21-32) mmol/L Anion Gap 5 (3-11) BUN 24 H (6-23) mg/dl Creatinine 0.81 (0.6-1.2) mg/dl Est Cr Clr Drug Dosing 40.2 ml/min Est GFR ( Amer) 76.8 ml/min Est GFR (Non-Af Amer) 66.2 ml/min BUN/Creatinine Ratio 29.6 H (10-20) Glucose 109 H (70-99(Fasting)) mg/dl Calcium 9.3 (8.6-10.3) mg/dl Magnesium 2.0 (1.7-2.4) mg/dl PG Care Time/CCT Total # of Minutes Spent Total Time Spent with Patient: Total time spent is greater than 50% in coordination of care (as documented) at patient's floor/unit and/or counseling patient: Coding Level of Care Code 25958 SUB INP/OBS CARE 2/35MIN Diagnoses Closed fracture of sacrum S32.10XA Ambulatory dysfunction R26.2 Leukocytosis D72.829 Left leg pain M79.605 Hyperglycemia R73.9 Hypertension I10 CAD, multiple vessel I25.10
[2024-05-06] MEDS ORDERED: Nursing to Pharmacy Communication SCH (10:15)
[2024-05-06 20:38] LABS: Appearance Urine Clear (Clear); Bilirubin Urine Negative (Negative); Blood Urine Negative (Negative); Color Urine Yellow; Glucose Urine UA Negative (Negative); Ketones Urine Negative (Negative); Leukocyte Esterase Urine Negative (Negative); Nitrite Urine Negative (Negative); Protein Urine Negative (Negative); Specific Gravity Urine 1.014 (1.000-1.030); Urobilinogen Urine Negative (Negative)
--- NOTE | 2024-05-07 07:57 | Hospitalist Progress Note ---
Date of Service May 07, 2024 Assessment & Plan (1) Closed fracture of sacrum: Plan: 83 yo female presented with sharp lower back pain after moving multiple boxes at her home 4 days prior to pain starting and was seen in ER 04/27 and PCP 05/02 where she started prednisone taper (started 05/02) with progression of symptoms to the point where she was unable to bear weight on the left lower extremity due to pain. Given muscle relater in ER with significant improvement and admitted for imaging/pain control/orthopedics evaluation/therapy and likely placement as she lives alone. Osteoporotic left sacral ala fracture Hip/pelvis imaging negative for acute fracture CT lumbar spine noting no acute fracture or subluxation of lumbar spine. Notable for acute nondisplaced left sacral alar fracture Orthopedics, Dr Godinez, consulted --> suspects related to osteoporosis and likely lifting/activity prior to admission. stable fracture and will heal on it's own, can weight-bear as tolerated and likely to be uncomfortable for first 2-4 wks, then better and about 3 months for healing WBC normalized, afebrile. CXR w/o acute process. UA overnight no evidence for infection Pain control: tylenol, lidocaine patch, heating pad added w/ improvement. Oxycodone 2.5mg and methocarbamol available prn (2 doses of each 05/06) Bowel regimen: colace BID, miralax daily. daily bowel movements on pain medications. Discussed as able to use less PO can back off bowel regimen outpatient but continue while on to prevent constipation DVT Proph: Lovenox SQ while inpatient PT/OT w/ recs for HHPT. Repeat PT eval 05/06 and able to do 6 steps to return home. CM arranged. Rx for RW provided and will give one for raised toilet seat Anticipating dc 05/08 after granddaughter done working and going to stay with patient to ensure not home alone. (2) Ambulatory dysfunction: Plan: improved w/ pain control as above, HHPT and outpatient f/u orthopedics (3) Leukocytosis: Plan: RESOLVED, suspect 2nd to steroid use. CXR negative/UA negative and has been afebrile (4) Left leg pain: Plan: See above, also has hx sciatica however steroids ineffective. Tx as above (5) Hyperglycemia: Plan: BSG elevation on admit 2nd to steroid use No further elevation since steroids held on am labs (6) Hypertension: Plan: Chronic/stable in setting of pain but much better now w/ low dose oxy as above, 130/62 Continues amlodipine daily Monitor (7) CAD, multiple vessel: Plan: Hx CAD s/p PCI 2014, severe s/p TCAR in May 2023 Continue aspirin, statin, metoprolol, Imdur No recent chest pain reported Plan Updated son Anurag at bedside 05/07, concerns about home alone until granddaughter off work tomorrow and able to stay with her. Will monitor overnight and plan for dc in afternoon w/ family and HHPT. Rx for RW and raised toilet seat. Outpt f/u Dr Godinez Admission and Anticipated Discharge Date Admission Date: May 03, 2024 Subjective Eval this morning, sitting up in bed. Medications effective but some ongoing pain at times. Discussed with patient and son Ya, granddaughter teacher and class today/tomorrow but can stay with her after teaching tomorrow and we do not want her being home alone. Encouraged ambulation but NOT to overdo it. No heavy lifting. Discussed bowel regimen, continued movement. Some increased frequency w/ urination. No burning but discussed to alert of any burning/further issues but no fever at this time and UA clear on check overnight. No fevr/chills, chest pain, shortness of breath at this time. Anticipating dc tomorrow after 3pm. Physical Exam Physical Exam: General: 83yo female in bed, sitting up in bed, son arrived at end of discussion, appears improved/stable Head atraumatic, normocephalic, mmm, trachea midline Resp: even/unlabored, no w/c/r, on room air CV: RRR, no significant edema, pulses palpable GI: +BS, soft/NT MSK/Neuro: tenderness over LEFT posterior left buttocks region/region of fracture but able to sit up little better today. dorsiflexion/plantarflexion intact Psych: AOx3, cooperative with exam Results & Data Results & Data Vital Signs (Past 12 Hours) Vital Signs Temp Pulse Resp BP BP Pulse Ox O2 Del Method 05/07/24 07:25 36.6 C 67 16 130/62 100 Room Air 05/06/24 21:14 36.3 C L 65 14 106/61 96 Room Air Laboratory Results 05/06/24 Range/Units 20:30 Urine Color Yellow Urine Appearance Clear (Clear) Urine pH 6.0 (4.5-7.5) Ur Specific [place] 1.014 (1.000-1.030) Urine Protein Negative (Negative) Urine Glucose (UA) Negative (Negative) Urine Ketones Negative (Negative) Urine Blood Negative (Negative) Urine Nitrite Negative (Negative) Urine Bilirubin Negative (Negative) Urine Urobilinogen Negative (Negative) Ur Leukocyte Esterase Negative (Negative) PG Care Time/CCT Total # of Minutes Spent Total Time Spent with Patient: Total time spent is greater than 50% in coordination of care (as documented) at patient's floor/unit and/or counseling patient: Coding Level of Care Code 66034 SUB INP/OBS CARE 2/35MIN Diagnoses Closed fracture of sacrum S32.10XA Ambulatory dysfunction R26.2 Leukocytosis D72.829 Left leg pain M79.605 Hyperglycemia R73.9 Hypertension I10 CAD, multiple vessel I25.10
--- NOTE | 2024-05-07 07:58 | Discharge Summary ---
Date of Service May 07, 2024 Admission HPI Per Admitting Provider Zulay is an 83-year-old female with past medical history significant for coronary artery disease status post JOSE MANUEL placement x 3, severe aortic stenosis status post TCAR in May 2023, hypertension, hyperlipidemia, left bundle branch block, and osteoporosis who presented to the [facility] ED on 05/03/2024 with a chief complaint of sharp lower back pain. She was initially noted to be hypertensive on arrival at 176/68, but was otherwise stable labs were significant for a leukocytosis of 16 with neutrophil predominance of 15, glucose of 176. X-ray of the bilateral hips and pelvis was read as negative for acute findings. CT of the lumbar spine without contrast was read as acute nondisplaced left sacral alar are fractures. It was negative for any acute fracture or subluxation of the lumbar spine. Prior to admission the patient was given a lidocaine patch and 500 mg p.o. methocarbamol. Patient was lying in bed in no acute distress at the time of the exam with her son bedside, history was obtained from both. They explain how the patient developed progressively worsening low back pain with radiation into the left buttocks and down the left lower extremity over the past week. No acute trauma associated with the pain. She was moving multiple boxes at her home approximately 4 days before the pain started. She was seen in the emergency department on 04/27/2024 and by her PCP on 05/02/2024. Her PCP had prescribed a prednisone taper which she began yesterday. Symptoms progressed to the point that she was unable to bear weight on the left lower extremity this a.m. due to pain. When asked she denies loss of bowel or bladder function, saddle anesthesia, paresthesias, or increased weakness in the left lower extremity compared to right lower extremity. Denies recent fever, chills, chest pain, shortness of breath, abdominal pain, nausea, vomiting, diarrhea, dysuria, hematuria, melena, lower extremity swelling. She is a full code and her son is her POA.She states that the muscle relaxer she received in the ED has significantly improved her pain. Please refer to Dr. Peralta's attestation for any changes to the treatment plan Discharge Data Allergies Allergy/AdvReac Type Severity Reaction Status Date / Time Penicillins Allergy Mild Verified 05/03/24 14:09 Sulfa (Sulfonamide Allergy Mild unknown Verified 05/03/24 14:09 Antibiotics) alendronate sodium Allergy Unknown . Verified 05/03/24 14:09 atorvastatin Allergy Unknown MUSCLE Verified 05/03/24 14:09 ACHES cephalexin Allergy Unknown UNKNOWN Verified 05/03/24 14:09 Cipro AdvReac Unknown N/V Verified 01/22/18 10:20 ciprofloxacin AdvReac Unknown N/V Verified 05/03/24 14:09 Ibandronic Acid Allergy Unknown . Uncoded 05/03/24 14:09 Consultations 05/03/24 15:36 ED Decision to Admit Stat 05/03/24 16:14 Consult Orthopedic Surgery Routine Ordered Studies 05/03/24 12:24 CT lumbar spine wo con Stat Hospital Course (1) Closed fracture of sacrum: 83 yo female presented with sharp lower back pain after moving multiple boxes at her home 4 days prior to pain starting and was seen in ER 04/27 and PCP 05/02 where she started prednisone taper (started 05/02) with progression of symptoms to the point where she was unable to bear weight on the left lower extremity due to pain. Given muscle relater in ER with significant improvement and admitted for imaging/pain control/orthopedics evaluation/therapy and likely placement as she lives alone. Hip/pelvis imaging negative for acute fracture CT lumbar spine noting no acute fracture or subluxation of lumbar spine. Notable for acute nondisplaced left sacral alar fracture Osteoporotic left sacral ala fracture Orthopedics consulted, Dr Godinez -suspects related to osteoporosis and likely lifting/activity prior to admission -stable fracture and will heal on it's own, can weight-bear as tolerated and likely to be uncomfortable for first 2-4 wks, then better and about 3 months for healing 05/05 WBC normalized, afebrile. CXR w/o infectious process. Suspect elevation on admission 2nd to recent prednisone use Continue pain control-- tylenol 650mg PO q6h scheduled, lidocaine patch. Methocarbamol available 500mg TID prn. +BM 05/05 (prior to opiate) Also added low dose oxycodone 2.5mg AND THIS HAS MADE SIGNIFICANT IMPROVEMENT on exam today and able to sit up in bed/participate well with therapy. Review of therapy notes w/ ability to return home w/ RW. Rx to CM. Discussed monitoring needs overnight/ensure no issues on the oxycodone and to continue bowel regimen w/ stool softener colace BID/miralax daily while on such to prevent constipation. 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 not on nsaids at baseline VIt D 44.7, wnl 05/06 WBC wnl, afebrile. Hgb stable on repeat/no bleeding reported Little more pain today --> eval w/ family in room, likely overdid it yesterday given significant improvement and encouraged to ambulate but limit excessive movements to limit aggravating -Asked RN to provide dose methocarbamol for spasm, heating pad -Continue oxycodone as needed Meds received yesterday: 1 dose methocarbamol, 4 doses oxy for total 10mg/24hrs Continue bowel regimen -- +BM 05/05, additional bowel movement 05/06 w/ bowel regimen on pain control Discussed therapy evals, family in room able to stay w/ her for couple days if needed and will ave PT eval w/ steps to ensure able to return home. She did one step yesterday but has two steps to return home. Repeat PT eval placed for am/call and voicemail left for discussion for the repeat eval for steps as well If able, CM has rx to deliver RW to her room prior to dc and to arrange HHPT to begin this week DVT proph: Lovenox SQ 05/07 - did great w/ steps on re-eval. planning for home w/ HHPT, family to stay. pain control. outpt ortho f/u (2) Ambulatory dysfunction: suspected 2nd to above MUCH improved w/ low dose oxycodone and improvement with ambulation w/ therapy 05/05 but overdid it and a little more painful today Ongoing pain control as above/repeat therapy evals and CM to arrange for HHPT if improvement/stable in AM given therapy eval and family able to stay with her (3) Leukocytosis: RESOLVED on repeat testing - suspected 2nd to recent steroid use [employer]. UA/CXR negative on admission and remains afebrile (4) Left leg pain: See above, also has hx sciatica however steroids ineffective. Tx as above (5) Hyperglycemia: BSG elevation on admit 2nd to steroid use No further elevation since steroids held on am labs (6) Hypertension: Chronic/stable in setting of pain but much better now w/ low dose oxy as above, 115/61 Continues amlodipine daily Monitor (7) CAD, multiple vessel: Hx CAD s/p PCI 2014, severe s/p TCAR in May 2023 Continue aspirin, statin, metoprolol, Imdur No recent chest pain reported Plan continued stay overnight but if pain stable/able to do steps with therapy will plan for dc w/ family staying for a couple of days and HHPT to be arranged by CM Updated family in the room, son works here (Anurag) Discharge Plan Discharge Items Patient Disposition: Home - Home Health Services Reason For Visit: BACK/LEFT LEG PAIN, LEFT SACRAL ALAR FRACTURES Discharge Diagnosis: Left sacral fracture Goals: You have been hospitalized for an acute medical problem. During your stay at [facility], we have made an effort to correct the problem that brought you to the hospital while keeping you as comfortable as possible. Medications were used to bring your condition under control and your discharge instructions will include directions for any medications you should take after leaving the hospital. Please make sure you see your Primary Care Provider as part of your follow up plan. Activity: Resume your previous activity Activity Comment: weight bearing as tolerated with walker. NO HEAVY LIFTING Non-emergency contact: Primary Care Provider and Surgeon Call non-emergency contact if: you have any medication questions, your symptoms worsen, your pain is not controlled and you have a fever Follow-up/Referrals: Kole Godinez MD [Physician] - (1 month) Que Mota DO [Primary Care Provider] - Diet: Heart Healthy Addtl Attending Provider Instructions: You have been hospitalized for difficulty with ambulation and pain at home. Imaging on admission showed evidence for sacral fracture on the left which is likely why the steroids did not help. Orthopedics was consulted, Dr Godinez, and this is nonoperative and may take several weeks (and up to 3 months) to heal and you should continue ambulation with weight bearing as tolerated with a walker and have been given a rolled walker prior to discharge and home health therapy has been arranged by case management. Dr Godinez would like to see you in follow up in clinic in about a month for repeat evaluation. For ongoing pain control, you should continue Tylenol 1 tablet every six hours as well as lidocaine patch daily/heat for baseline control which you have been provided in the hospital. We have also sent in a prescription for: * Oxycodone 2.5mg by mouth every 4-6 hours as needed for PAIN * Methocarbamol 500mg tablet by mouth up to three times a day (every eight hours) for muscle SPASM Please avoid taking any tramadol if you have any of these left at home while on pain medication with oxycodone as they are similar and could increase any confusion and the oxycodone appears to work much better for you at a very low dose as written above. Again, reminder the oxycodone tablets come in 5mg doses and your dose is 2.5mg which means you should take a HALF a tablet as needed for pain. We have had you on a bowel regimen with miralax once daily and stool softener with colace (docusate) twice daily as pain medications can contribute to constipation and that can make pain worse and you have been moving your bowels on this regimen and encouraged to continue such at discharge. Please follow up with primary care in the next 7-10 days after discharge to monitor your progress after hospitalization. Please return to the ER with any worsening pain, fever/chills, chest pain, shortness of breath or for any other symptoms concerning for you. It has been a pleasure being a part of the medical team providing for you while you have been in the hospital. Take care! Pending Studies at Discharge: No Stand-Alone Forms: My [facility], Smoking Cessation Medications and DC Order Prescriptions: New methocarbamol 500 mg Tablet 500 mg PO TID PRN (Reason: muscle spasm) Qty: 14 0RF oxycodone 5 mg Tablet 2.5 mg PO Q4H PRN (Reason: pain) Qty: 10 0RF Rx Instructions: please take 1/2 tablet (2.5mg) every 4-6 hours as needed for pain docusate sodium 100 mg Capsule 100 mg PO BID Qty: 60 0RF polyethylene glycol 3350 [Miralax] 17 gram Powder In Packet 17 g PO DAILY Qty: 30 0RF lidocaine 5 % Adhesive Patch,Medicated 1 patch transdermal DAILY Qty: 15 0RF Continued diclofenac sodium [Voltaren Arthritis Pain] 1 % gel 2 g topical QID Qty: 200 2RF Rx Instructions: apply to single elbow, wrist or hand; for hand includes palm/fingers/back of hand cyanocobalamin (vitamin B-12) [Vitamin B-12] 500 mcg tablet 500 mcg PO DAILY Qty: 30 0RF aspirin 81 mg tablet,chewable 81 mg PO DAILY metoprolol succinate [Toprol XL] 25 mg tablet extended release 24 hr 25 mg PO DAILY ascorbic acid (vitamin C) 500 mg tablet 500 mg PO QAM famotidine 40 mg tablet 40 mg PO DAILY Qty: 30 0RF acetaminophen 500 mg Tablet 500 mg PO Q4H PRN (Reason: Pain) Hold Instructions: Patient currently taking 325mg 3 tablets q 6 hours x 4 days. Patient Comments: unknown strength rosuvastatin 40 mg tablet 40 mg PO HS multivitamin Tablet 1 tab PO QAM nitroglycerin 0.4 mg Tablet, Sublingual 0.4 mg Sublingual DIRECTED PRN (Reason: Chest Pain) Rx Instructions: PLACE ONE TABLET UNDER THE TONGUE EVERY 5 MINUTES FOR UP TO 3 DOSES OVER 15 MINUTES IF NEEDED FOR CHEST PAIN. isosorbide mononitrate 120 mg tablet extended release 24 hr 120 mg PO QAM omega 1-muv-qaw-fish oil [Fish Oil] 1,000 mg (120 mg-180 mg) Capsule 1 cap PO QPM calcium carbonate [Calcium 500] 500 mg calcium (1,250 mg) Tablet 1,000 mg PO QAM amlodipine 5 mg tablet 5 mg PO PM Probiotic 3 billion cell Capsule 3,000 mmu cells PO DAILY Rx Instructions: administer with a meal Held tramadol 50 mg tablet 50 mg PO Q8H PRN (Reason: pain (scale score 7-10)) Qty: 15 0RF Hold Instructions: please do not take while taking oxycodone to prevent confusion Discontinued prednisone 10 mg tablet See Rx Instructions PO DAILY Qty: 30 0RF Rx Instructions: Start Date 05/02/24 x 12 day supply: 40mg(4 tab)[id number],30mg(3tab)[id number],20mg(2tab)x3day,10mg(1tab)x3day Admission Data Admit Date/Time: 05/03/24 16:11 Attending Provider: Hyun Calderón Admit Provider: Dereje Peralta Primary Care Provider: Que Mota Other Providers: Dereje Peralta; Kole Godinez Coding Diagnoses Closed fracture of sacrum S32.10XA Ambulatory dysfunction R26.2 Leukocytosis D72.829 Left leg pain M79.605 Hyperglycemia R73.9 Hypertension I10 CAD, multiple vessel I25.10
[2024-05-07] MEDS: LIDOCAINE 5% 1 PATCH TD SCH (09:11)
--- NOTE | 2024-05-07 15:08 | Communication Note ---
Date of Service: May 07, 2024 Providing rx to CM to arrange for at discharge as patient's condition requires positioning of the body to alleviate pain in ways not feasible in an ordinary bed for discharge tomorrow to allow her to heal/recover at home w/ HHPT.
--- NOTE | 2024-05-08 11:28 | Discharge Summary ---
Discharge Summary Date of Service May 08, 2024 Principal Dx & Hospital Course #1 = Principal Diagnosis (1) Closed fracture of sacrum: 83 yo female presented with sharp lower back pain after moving multiple boxes at her home 4 days prior to pain starting and was seen in ER 04/27 and PCP 05/02 where she started prednisone taper (started 05/02) with progression of symptoms to the point where she was unable to bear weight on the left lower extremity due to mita n. Given muscle relater in ER with significant improvement and admitted for imaging/pain control/orthopedics evaluation/therapy and likely placement as she lives alone. Osteoporotic left sacral ala fracture Hip/pelvis imaging negative for acute fracture CT lumbar spine noting no acute fracture or subluxation of lumbar spine. Notable for acute nondisplaced left sacral alar fracture Orthopedics, Dr Godinez, consulted --> suspects related to osteoporosis and likely lifting/activity prior to admission. stable fracture and will heal on it's own, can weight-bear as tolerated and likely to be uncomfortable for first 2-4 wks, then better and about 3 months for healing Pain control: tylenol, lidocaine patch, heating pad added w/ improvement. Oxycodone 2.5mg and methocarbamol available prn Bowel regimen: colace BID, miralax daily. daily bowel movements on pain medications. Discussed as able to use less PO can back off bowel regimen outpatient but continue while on to prevent constipation PT/OT w/ recs for HHPT. - Provided rx for rolling walker, raised toilet seat and hospital bed dispo: Discharged to home with home health and family support (2) Ambulatory dysfunction: improved w/ pain control as above, HHPT and outpatient f/u orthopedics (3) Leukocytosis: RESOLVED, suspect 2nd to steroid use. CXR negative/UA negative and has been afebrile (4) Left leg pain: See above, also has hx sciatica however steroids ineffective. Tx as above (5) Hypertension: Chronic/stable in setting of pain but much better now w/ low dose oxy as above Continues amlodipine daily (6) CAD, multiple vessel: Hx CAD s/p PCI 2014, severe s/p TCAR in May 2023 Continue aspirin, statin, metoprolol, Imdur No recent chest pain reported Plan discussed with patient and son at bedside 05/08, at first they had hesitations about going home today but patient has been independent in her room and ambulating without issue. After further discussion patient and family on board for discharge today with home health and family support to help with meal preparation and take care of her dog. I encouraged the patient to rest over the next couple days, not to overdo it as this will make her pain worse. Notes For Next Care Provider Admitted with closed fracture of the sacrum, no fall. Likely due to overexertion after heavy lifting. Orthopedics recommended rest and fracture will heal on its own. Discussed with family possible life alert or similar assistance plan for when patient is alone in the future. Medication Changes From Visit Oxycodone methocarbamol as needed for pain Admission HPI Per Admitting Provider Zulay is an 83-year-old female with past medical history significant for coronary artery disease status post JOSE MANUEL placement x 3, severe aortic stenosis status post TCAR in May 2023, hypertension, hyperlipidemia, left bundle branch block, and osteoporosis who presented to the [facility] ED on 05/03/2024 with a chief complaint of sharp lower back pain. She was initially noted to be hypertensive on arrival at 176/68, but was otherwise stable labs were significant for a leukocytosis of 16 with neutrophil predominance of 15, glucose of 176. X-ray of the bilateral hips and pelvis was read as negative for acute findings. CT of the lumbar spine without contrast was read as acute nondisplaced left sacral alar are fractures. It was negative for any acute fracture or subluxation of the lumbar spine. Prior to admission the patient was given a lidocaine patch and 500 mg p.o. methocarbamol. Patient was lying in bed in no acute distress at the time of the exam with her son bedside, history was obtained from both. They explain how the patient developed progressively worsening low back pain with radiation into the left buttocks and down the left lower extremity over the past week. No acute trauma associated with the pain. She was moving multiple boxes at her home approximately 4 days before the pain started. She was seen in the emergency department on 04/27/2024 and by her PCP on 05/02/2024. Her PCP had prescribed a prednisone taper which she began yesterday. Symptoms progressed to the point that she was unable to bear weight on the left lower extremity this a.m. due to pain. When asked she denies loss of bowel or bladder function, saddle anesthesia, paresthesias, or increased weakness in the left lower extremity compared to right lower extremity. Denies recent fever, chills, chest pain, shortness of breath, abdominal pain, nausea, vomiting, diarrhea, dysuria, hematuria, melena, lower extremity swelling. She is a full code and her son is her POA.She states that the muscle relaxer she received in the ED has significantly improved her pain. Discharge Exam General: NAD, VS as above Resp: normal respiratory effort, lungs clear to auscultation CV: RRR, no murmur, Abd: soft, non tender, no hepatosplenomegaly Extremities: Moves all extremities, trace edema Updated Medication List Medication Instructions Recorded Confirmed Type acetaminophen 500 mg tablet 500 mg PO Q4H PRN Pain 02/02/19 05/03/24 History multivitamin 1 tab PO QAM 02/02/19 05/03/24 History nitroglycerin 0.4 mg sublingual 0.4 mg sublingual DIRECTED PRN 02/02/19 05/03/24 History tablet Chest Pain rosuvastatin 40 mg tablet 40 mg PO HS 02/02/19 05/03/24 History calcium carbonate (Calcium 500) 1,000 mg PO QAM 02/15/19 05/03/24 History isosorbide mononitrate 120 mg 120 mg PO QAM 02/15/19 05/03/24 History tablet,extended release 24 hr omega 2-ymk-ibb-fish oil 1,000 mg 1 cap PO QPM 02/15/19 05/03/24 History (120 mg-180 mg) capsule (Fish Oil) ascorbic acid (vitamin C) 500 mg 500 mg PO QAM 07/16/19 05/03/24 History tablet amlodipine 5 mg tablet 5 mg PO PM 04/08/20 05/03/24 History diclofenac sodium 1 % topical gel 2 g topical QID #200 grams 10/08/22 05/03/24 Rx (Voltaren Arthritis Pain) aspirin 81 mg chewable tablet 81 mg PO DAILY 05/30/23 05/03/24 History lactobacillus combination no.4 3 3,000 mmu cells PO DAILY 06/15/23 05/03/24 History billion cell capsule (Probiotic) cyanocobalamin (vitamin B-12) 500 500 mcg PO DAILY #30 tabs 09/01/23 06/13/24 Rx mcg tablet (Vitamin B-12) metoprolol succinate 25 mg 25 mg PO DAILY 09/26/23 05/03/24 History tablet,extended release 24 hr (Toprol XL) tramadol 50 mg tablet 50 mg PO Q8H PRN pain (scale score 04/27/24 05/03/24 Rx 7-10) #15 tabs famotidine 40 mg tablet 40 mg PO DAILY #30 tabs 05/02/24 05/03/24 Rx docusate sodium 100 mg capsule 100 mg PO BID #60 caps 05/06/24 Rx lidocaine 5 % topical patch 1 patch transdermal DAILY #15 ea 05/06/24 Rx methocarbamol 500 mg tablet 500 mg PO TID PRN muscle spasm #14 05/06/24 Rx tabs oxycodone 5 mg tablet 2.5 mg (1/2 x 5 mg) PO Q4H PRN 05/06/24 Rx pain #10 tabs polyethylene glycol 3350 17 gram 17 g PO DAILY #30 ea 05/06/24 Rx oral powder packet (Miralax) Hospital Stay Data Consultations 05/03/24 15:36 ED Decision to Admit Stat 05/03/24 16:14 Consult Orthopedic Surgery Routine Diagnostic Imagining Performed Hip/Pelvis X-Ray 05/03/24 11:01 XR hip KAMILAH 2v w pelvis CLINICAL HISTORY: pain TECHNIQUE: 2 views of the bilateral hips and single frontal view of the pelvis were obtained. Comparison: Comparison is made to CT abdomen pelvis 04/27/2024 FINDINGS: There is no evidence of an acute fracture. Mild degenerative changes are seen in the hip joints and prominent spinal osteoarthritic changes. Vascular calcifications are noted. IMPRESSION: Mild osteoarthritic changes as above. No evidence of acute fracture. ACT 112: Negative or not required by law. Electronically signed by: Aníbal Cain M.D. 05/03/2024 1:[address] 05/03/24 12:24 CT lumbar spine wo con HISTORY: 83 years-old Female low back pain radiating into left hip acute pain of the pelvis and low back COMPARISON: CT abdomen and pelvis and CT left hip 04/27/2024 TECHNIQUE: Multiple axial CT images of the lumbar spine were obtained without IV contrast. A dose lowering technique was used consistent with the principals of VIKKI. FINDINGS: New from the prior study is an acute intra-articular nondisplaced left sacral alar fracture demonstrating mild comminution best seen on the coronal images. Possible extension into the left SI joint. Demineralized appearance of the bones. Mild degeneration of the bilateral SI joints. No acute lumbar spine fracture or subluxation identified. Multilevel degenerative changes of the lumba r spine redemonstrated including moderate disc space narrowing and spondylitic spurring at L3-L4 L4-L5. Central canal and neural foramina are better assessed by MRI. Posterior annular disc bulging with disc osteophyte complex relation to result in multilevel foraminal stenosis. No high-grade central canal narrowing identified on this exam. Renal cysts redemonstrated. Colonic diverticulosis. IMPRESSION: 1. Acute nondisplaced left sacral alar fractures. 2. No acute fracture or subluxation of the lumbar spine. ACT 112: Negative or not required by law. The above report was generated using voice recognition software. It may contain grammatical, syntax or spelling errors. Electronically signed by: Sanjay Clay M.D. 05/03/2024 1:20 PM Chest X-Ray 05/04/24 08:25 XR chest 1V portable HISTORY: 83 years-old Female leukocytosis COMPARISON: 06/15/2023 TECHNIQUE: AP view of the chest FINDINGS: Cardiac silhouette is enlarged. Aortic valvular endograft. Mild right hemidiaphragm elevation. Chronic interstitial coarsening. No pneumothorax, pleural effusion or airspace consolidation. Bones appear grossly intact. IMPRESSION: Cardiomegaly without acute process. ACT 112: Negative or not required by law. The above report was generated using voice recognition software. It may contain grammatical, syntax or spelling errors. Electronically signed by: Sanjay Clay M.D. 05/04/2024 9:39 AM Pending Results Patient Have Any Pending Studies at Discharge: No Discharge Instructions Given to Patient (Per Discharging Provider) You have been hospitalized for difficulty with ambulation and pain at home. Imaging on admission showed evidence for sacral fracture on the left which is likely why the steroids did not help. Orthopedics was consulted, Dr Godinez, and this is nonoperative and may take s everal weeks (and up to 3 months) to heal and you should continue ambulation with weight bearing as tolerated with a walker and have been given a rolled walker prior to discharge and home health therapy has been arranged by case management. Dr Godinez would like to see you in follow up in clinic in about a month for repeat evaluation. For ongoing pain control, you should continue Tylenol 1 tablet every six hours as well as lidocaine patch daily/heat for baseline control which you have been provided in the hospital. We have also sent in a prescription for: * Oxycodone 2.5mg by mouth every 4-6 hours as needed for PAIN * Methocarbamol 500mg tablet by mouth up to three times a day (every eight hours) for muscle SPASM Please avoid taking any tramadol if you have any of these left at home while on pain medication with oxycodone as they are similar and could increase any confusion and the oxycodone appears to work much better for you at a very low dose as written above. Again, reminder the oxycodone tablets come in 5mg doses and your dose is 2.5mg which means you should take a HALF a tablet as needed for pain. We have had you on a bowel regimen with miralax once daily and stool softener with colace (docusate) twice daily as pain medications can contribute to constipation and that can make pain worse and you have been moving your bowels on this regimen and encouraged to continue such at discharge. Please follow up with primary care in the next 7-10 days after discharge to monitor your progress after hospitalization. Please return to the ER with any worsening pain, fever/chills, chest pain, shortness of breath or for any other symptoms concerning for you. It has been a pleasure being a part of the medical team providing for you while you have been in the hospital. Take care! Total Time Total Time Spent Total Time Spent (In Minutes): Time spend day of discharge 40 minutes including direct patient care, medication reconciliation, documentation, review of labs and images, and coordination of care. Coding Level of Care Code 79974 INP/OBS DISCH >30 MIN Diagnoses Closed fracture of sacrum S32.10XA Ambulatory dysfunction R26.2 Leukocytosis D72.829 Left leg pain M79.605 Hypertension I10 CAD, multiple vessel I25.10
== END 2024-05-08 16:08 | disposition home health service (06) | DRG 543 ==
LOC: ED 10:54 → SUATTDRO 16:11 → 3E 16:11

== ENCOUNTER 2024-07-16 08:56 | Observation (INO) ==
--- NOTE | 2024-07-16 09:08 | Emergency Department Note ---
Impression & Plan Chest pain, Syncope ED Provider Note NAME: HEIDY LATIF AGE: 84 SEX: F : 1940 ARRIVES VIA: Ambulance INFORMANT: Patient ED PROVIDER(S): Jagdeep Cedeno DO CHIEF COMPLAINT: chest pain HPI: Patient is an 84-year-old female with a past medical history of CKD and prediabetes as well as hypertension who presents to the ER for chest pain. She notes that yesterday she passed out and she had no prodromal symptoms. She fell into the pew and just hit her head. She denies any head pain or neck pain. She admits that following this she was getting some intermittent chest pain since yesterday and today. She notes its on the left side of her chest and describes it as a tightness/burning pain. No arm or jaw pain. No shortness of breath. Has been off and on today consequently she came in. She did feel like she was going to pass out again. Denies any belly pain, nausea, vomiting, or diarrhea. No dysuria, urgency or frequency. Additional history obtained from EMS who notes that patient did receive aspirin 324 prior to arrival. ADDITIONAL HISTORY OBTAINED: Per HPI Chronic Medical/Social Conditions Affecting Care: Per HPI PAST MEDICAL HISTORY:See Below PAST SURGICAL HISTORY:See Below FAMILY HISTORY:See Below SOCIAL HISTORY:See Below HOME MEDICATIONS:See Below ALLERGIES:See Below VITALS:See Below PHYSICAL EXAMINATION: GENERAL: Sitting up in bed, alert, well appearing, well nourished, no distress, non-toxic EYE EXAM: normal conjunctiva. OROPHARYNX: no exudate, no erythema, lips, buccal mucosa, and tongue normal and mucous membranes are moist NECK: supple, no nuchal rigidity, no adenopathy, non-tender LUNGS: Clear to auscultation. Normal chest wall mechanics HEART: no murmurs, S1 normal and S2 normal ABDOMEN: abdomen soft, non-tender, normo-active bowel sounds, no masses, no rebound or guarding. UPPER EXTREMITIES: upper extremities are grossly normal. LOWER EXTREMITIES: No pitting edema. NEURO EXAM: Normal sensorium, cranial nerves II-XII grossly intact, normal speech, no gross weakness of arms, no gross weakness of legs. MEDICAL DECISION MAKING: Patient is an 84-year-old female who presents ER for the above-stated complaint. IV was established blood work is obtained. Labs show no significant leukocytosis or anemia. BMP was unremarkable. LFTs bilirubin was normal. Troponins were negative. Lipase was normal. With the episode of syncope and off-and-on chest pain I did elect to discuss with the hospitalist for further evaluation management treatment. EKG was nondiagnostic. Chest x-ray was clean. Consults/Care Managements Discussions: Per MDM Triage Nursing notes reviewed. Limited review of prior medical records performed Vital Signs: reviewed and remarkable for no significant abnormalities Differential diagnosis: Cardiac ischemia, aortic dissection, pulmonary embolism, pneumothorax, pneumonia, pericarditis, myocarditis, esophageal rupture, GERD, cholecystitis, pancreatitis, musculoskeletal, as well as other pathologies. ER treatment provided: See below Diagnostics interpreted by me include EKG and cardiac monitoring as listed below: -Cardiac Monitoring: An order was placed for continuous cardiac monitoring. The monitor shows a rate of 52 with sinus rhythm. -ECG: Sinus rhythm rate of 51 Left axis No PVCs QTc 416 -Laboratory studies:Interpreted by me as stated above in MDM and shown below. Imaging studies: Xrays: As interpreted by me: Portable AP upright 1 view of the chest shows no focal infiltrate CTs show: none Procedures:none Critical Care: None Past Med/Surg History Problem List (Updated 07/16/24 @ 15:17 by Jagdeep Cedeno DO) Syncope (Acute) Chest pain (Acute) Syncope Chest pain Sacral fracture (Acute ~05/03/24) Acute nondisplaced sacral alar fracture Leukocytosis Ambulatory dysfunction (Acute) Closed fracture of sacrum (Acute 05/03/24) Left sided sciatica Left leg pain History of ankylosing spondylitis Chronic kidney disease, stage 3 Pancreatic lesion 05/2021 CT showed 5mm side branch IPMN. Radiology reviewed study from 03/2020 and lesion grossly stable. Allergic rhinitis History of basal cell carcinoma Renal cyst (Acute) CAD, multiple vessel (Acute) Disc degeneration, lumbar (Acute) HLA-B27 positive arthropathy (Chronic) Hyperlipidemia (Acute) Osteopenia (Chronic) Prediabetes (Acute) Aortic stenosis Hx aortic valve replacement 09/2024 Hypertension (Chronic) Carotid stenosis (Acute) Medical History Gastroesophageal reflux disease TIA (transient ischemic attack) C. difficile colitis Surgical History History of tonsillectomy History of oral surgery History of cataract surgery Hx of heart artery stent Family History Mother Breast cancer Brother Coronary heart disease Hypertension Father Hypertension Coronary heart disease Grandmother (Maternal) Gastric cancer Grandfather (Maternal) Coronary heart disease Denies family history of Ovarian cancer Colorectal cancer Social History Smoking Status: Never smoker Second Hand Exposure: No; Do You Dip or Chew Tobacco: No; Hx Alcohol Use: No Hx Substance Use: No Preferred Language: Montenegrin Communication Ability: Effective Hearing Ability: Normal Health Information Managers Required: No Beliefs That Will Affect Care: Anabaptist Anabaptist Beliefs: Yazidism. marital status: / Current Living Situation: Alone current occupational status: retired Feels Safe at Home: Yes Childhood Exposure to Second-Hand Smoke: Yes Diet: regular caffeine: Yes Dental Care, Regularly: Yes Physical Activity Frequency: 1-2 Times per Week Seatbelt Use: always Sunscreen Use: Yes Assistive Devices: Cane and Walker Allergies Allergies Allergy/AdvReac Type Severity Reaction Status Date / Time Penicillins Allergy Mild Verified 07/16/24 10:42 Sulfa (Sulfonamide Allergy Mild unknown Verified 07/16/24 10:42 Antibiotics) alendronate sodium Allergy Unknown . Verified 07/16/24 10:42 atorvastatin Allergy Unknown MUSCLE Verified 07/16/24 10:42 ACHES cephalexin Allergy Unknown UNKNOWN Verified 07/16/24 10:42 Cipro AdvReac Unknown N/V Verified 01/22/18 10:20 ciprofloxacin AdvReac Unknown N/V Verified 07/16/24 10:42 Ibandronic Acid Allergy Unknown . Uncoded 07/16/24 10:42 Home Meds Home Medications Medication Instructions Recorded Confirmed acetaminophen 500 mg tablet 500 mg PO Q4H PRN Pain 02/02/19 07/16/24 multivitamin 1 tab PO QAM 02/02/19 07/16/24 nitroglycerin 0.4 mg sublingual 0.4 mg sublingual DIRECTED PRN 02/02/19 07/16/24 tablet Chest Pain rosuvastatin 40 mg tablet 40 mg PO HS 02/02/19 07/16/24 calcium carbonate (Calcium 500) 1,000 mg PO QAM 02/15/19 07/16/24 isosorbide mononitrate 120 mg 120 mg PO QAM 02/15/19 07/16/24 tablet,extended release 24 hr omega 3-vag-abf-fish oil 1,000 mg 1 cap PO QPM 02/15/19 07/16/24 (120 mg-180 mg) capsule (Fish Oil) ascorbic acid (vitamin C) 500 mg 500 mg PO QAM 07/16/19 07/16/24 tablet amlodipine 5 mg tablet 5 mg PO PM 04/08/20 07/16/24 aspirin 81 mg chewable tablet 81 mg PO DAILY 05/30/23 07/16/24 metoprolol succinate 25 mg 25 mg PO DAILY 09/26/23 07/16/24 tablet,extended release 24 hr (Toprol XL) Previous Rx's Medication Instructions Recorded cyanocobalamin (vitamin B-12) 500 500 mcg PO DAILY #30 tabs 07/22/23 mcg tablet (Vitamin B-12) famotidine 40 mg tablet 40 mg PO DAILY #30 tabs 05/02/24 docusate sodium 100 mg capsule 100 mg PO BID #60 caps 05/06/24 lidocaine 5 % topical patch 1 patch transdermal DAILY #15 ea 05/06/24 tramadol 50 mg tablet 50 mg PO Q8H PRN pain (scale score 07/02/24 7-10) #15 tabs Results & Data (ED) Vital Signs Vital Signs - 24 hr 07/16/24 09:01 07/16/24 09:03 07/16/24 09:10 Temperature 36.8 C Temperature Source Oral Pulse Rate 62 Pulse Rate from SpO2 Sensor Pulse Rhythm Regular Pulse Strength Normal Respiratory Rate 18 Respiratory Effort / Characteristics Non-Labored Respiratory Depth Normal Respiratory Pattern Regular Blood Pressure 181/70 H 181/70 H Blood Pressure Mean 114 107 Blood Pressure Position Lying Pulse Oximetry 96 95 Oxygen Delivery Method Room Air Room Air Sepsis Recent Fever Within 48 Hours No Sepsis New/Unexplained Change in Mental Status N/A Sepsis Action Taken by Nursing No Action Required 07/16/24 09:11 07/16/24 09:12 07/16/24 09:50 Temperature Temperature Source Pulse Rate 58 L Pulse Rate from SpO2 Sensor 59 L Pulse Rhythm Pulse Strength Respiratory Rate 18 Respiratory Effort / Characteristics Respiratory Depth Respiratory Pattern Blood Pressure 136/71 Blood Pressure Mean 110 Blood Pressure Position Pulse Oximetry 97 Oxygen Delivery Method Room Air Sepsis Recent Fever Within 48 Hours Sepsis New/Unexplained Change in Mental Status Sepsis Action Taken by Nursing 07/16/24 09:50 07/16/24 09:54 07/16/24 10:00 Temperature Temperature Source Pulse Rate 56 L Pulse Rate from SpO2 Sensor 57 L Pulse Rhythm Pulse Strength Respiratory Rate 22 Respiratory Effort / Characteristics Respiratory Depth Respiratory Pattern Blood Pressure 136/71 125/51 L Blood Pressure Mean 110 86 Blood Pressure Position Pulse Oximetry 92 Oxygen Delivery Method Sepsis Recent Fever Within 48 Hours Sepsis New/Unexplained Change in Mental Status Sepsis Action Taken by Nursing 07/16/24 10:00 07/16/24 10:15 07/16/24 10:16 Temperature Temperature Source Pulse Rate 58 L 53 L Pulse Rate from SpO2 Sensor 57 L Pulse Rhythm Pulse Strength Respiratory Rate 18 Respiratory Effort / Characteristics Respiratory Depth Respiratory Pattern Blood Pressure 125/51 L Blood Pressure Mean 86 Blood Pressure Position Pulse Oximetry 94 Oxygen Delivery Method Sepsis Recent Fever Within 48 Hours Sepsis New/Unexplained Change in Mental Status Sepsis Action Taken by Nursing 07/16/24 10:30 07/16/24 10:33 Temperature Temperature Source Pulse Rate 62 Pulse Rate from SpO2 Sensor 61 Pulse Rhythm Pulse Strength Respiratory Rate 25 H Respiratory Effort / Characteristics Respiratory Depth Respiratory Pattern Blood Pressure 171/72 H Blood Pressure Mean 91 Blood Pressure Position Pulse Oximetry 94 Oxygen Delivery Method Sepsis Recent Fever Within 48 Hours Sepsis New/Unexplained Change in Mental Status Sepsis Action Taken by Nursing Laboratory Data 07/16/24 09:05 07/16/24 09:05 Lab Results 07/16/24 Range/Units 09:05 WBC 6.72 (4.8-10.8) K/ul RBC 4.46 (4.20-5.40) M/uL Hgb 13.6 (12.0-16.0) g/dl Hct 42.2 (37.0-47.0) % MCV 94.6 (80.0-100.0) fL MCH 30.5 (25.0-34.0) pg MCHC 32.2 (32.0-36.0) g/dL RDW Std Deviation 46.9 H (36.4-46.3) fL RDW Coeff of Thanh 13.5 (11.5-14.5) % Plt Count 161 (130-400) K/uL MPV 10.5 (9.4-12.4) fL Immature Gran % (Auto) 0.3 % Neut % (Auto) 70.1 % Lymph % (Auto) 18.5 % [place] % (Auto) 8.3 % Eos % (Auto) 1.8 % Baso % (Auto) 1.0 % Neut # (Auto) 4.71 (1.40-6.50) K/uL Lymph # (Auto) 1.24 (1.20-3.40) K/uL [place] # (Auto) 0.56 (0.11-0.59) K/uL Eos # (Auto) 0.12 (0.00-0.50) K/uL Baso # (Auto) 0.07 (0.00-0.20) K/uL Immature Gran # (Auto) 0.02 (0.01-0.20) K/uL Sodium 141 (136-145) mmol/L Potassium 4.3 (3.5-5.1) mmol/L Chloride 103 (98-107) mmol/L Carbon Dioxide 34 H (21-32) mmol/L Anion Gap 4 (3-11) BUN 17 (6-23) mg/dl Creatinine 0.79 (0.6-1.2) mg/dl Est Cr Clr Drug Dosing 44.1 ml/min Est GFR ( Amer) 78.6 ml/min Est GFR (Non-Af Amer) 67.8 ml/min BUN/Creatinine Ratio 21.5 H (10-20) Glucose 101 H (70-99(Fasting)) mg/dl Calcium 9.9 (8.6-10.3) mg/dl Total Bilirubin 0.6 (0.2-1.0) mg/dl AST 20 (13-39) U/L ALT 10 (7-52) U/L Alkaline Phosphatase 73 (34-104) U/L Troponin I High Sens 5.2 (0-14) pg/ml Total Protein 7.4 (6.0-8.3) gm/dl Albumin 4.7 (3.4-5.0) gm/dl Globulin 2.7 (2.5-4.0) gm/dl Albumin/Globulin Ratio 1.7 (0.9-2) Lipase 52 (11-82) U/L Imaging Data Radiologist's Impression: Chest X-Ray 07/16/24 08:58 XR chest 1V portable HISTORY: Chest pain, nonspecific COMPARISON: Chest 05/04/2024. FINDINGS: No pneumothorax. No pleural effusions. No focal lung consolidations to suggest a pneumonia. No evidence for pulmonary edema. The cardiac silhouette is borderline enlarged. The left coronary artery stent and aortic valve prosthesis are again noted. There are calcifications within the thoracic aorta. No acute fractures. IMPRESSION: No significant change compared to the prior study. No acute process. ACT 112: Negative or not required by law. Electronically signed by: Carlos Manuel Elliott M.D. 07/16/2024 9:42 AM Discharge Plan Visit Data Chief Complaint: Chest Pain ED Provider: Jagdeep Cedeno Discharge Problem: Chest pain, Syncope Patient Disposition: Admitted As Inpatient Discharge Instructions Interventions: ED Discharge Assessment Last Done: 07/16/24 11:58 Discharge Problem: Chest pain Qualifiers: Chest pain type: unspecified Qualified Code(s): R07.9 - Chest pain, unspecified Syncope Qualifiers: Syncope type: unspecified Qualified Code(s): R55 - Syncope and collapse
[2024-07-16 09:35] LABS: Basophils # (auto) 0.07 K/uL (0.00-0.20); Eosinophils # (auto) 0.12 K/uL (0.00-0.50); Eosinophils % (auto) 1.8 %; Hematocrit (blood only) 42.2 % (37.0-47.0); Hemoglobin 13.6 g/dl (12.0-16.0); Immature Granulocytes # (auto) 0.02 K/uL (0.01-0.20); Immature Granulocytes % (auto) 0.3 %; Lymphocytes # (auto) 1.24 K/uL (1.20-3.40); Lymphocytes % (auto) 18.5 %; Mean Corpuscular Hemoglobin 30.5 pg (25.0-34.0); Mean Corpuscular Hgb Conc 32.2 g/dL (32.0-36.0); Mean Corpuscular Volume 94.6 fL (80.0-100.0); Mean Platelet Volume 10.5 fL (9.4-12.4); Monocytes # (auto) 0.56 K/uL (0.11-0.59); Monocytes % (auto) 8.3 %; Neutrophils # (auto) 4.71 K/uL (1.40-6.50); Neutrophils % (auto) 70.1 %; Platelet Count 161 K/uL (130-400); RDW Coefficient of Variation 13.5 % (11.5-14.5); RDW Standard Deviation 46.9 fL (36.4-46.3); Red Blood Count 4.46 M/uL (4.20-5.40); White Blood Count 6.72 K/ul (4.8-10.8)
--- NOTE | 2024-07-16 09:43 | XRay Report ---
XR chest 1V portable HISTORY: Chest pain, nonspecific COMPARISON: Chest 05/04/2024. FINDINGS: No pneumothorax. No pleural effusions. No focal lung consolidations to suggest a pneumonia. No evidence for pulmonary edema. The cardiac silhouette is borderline enlarged. The left coronary ar zoila stent and aortic valve prosthesis are again noted. There are calcifications within the thoracic aorta. No acute fractures. IMPRESSION: No significant change compared to the prior study. No acute process. ACT 112: Negative or not required by law. Electronically signed by: Carlos Manuel Elliott M.D. 07/16/2024 9:42 AM
[2024-07-16 09:55] LABS: Albumin Globulin Ratio 1.7 (0.9-2); Albumin Level 4.7 gm/dl (3.4-5.0); BUN Creatinine Ratio 21.5 (10-20); Bilirubin,Total 0.6 mg/dl (0.2-1.0); Calcium 9.9 mg/dl (8.6-10.3); Creatinine Clr Calc Pharmacy 44.1 ml/min; Est GFR (African American) 78.6 ml/min; Est GFR (Non-African American) 67.8 ml/min; Globulin 2.7 gm/dl (2.5-4.0); Potassium 4.3 mmol/L (3.5-5.1); Total Protein 7.4 gm/dl (6.0-8.3)
[2024-07-16 10:00] LABS: Troponin I High Sensitivity 5.2 pg/ml (0-14)
--- NOTE | 2024-07-16 10:25 | History & Physical Report ---
Date of Service July 16, 2024 Assessment & Plan (1) Chest pain: Plan: -CBC, CMP, and lipase were benign. -Chest x-ray negative. -EKG showed sinus jesus cardia and LVH. -Troponin negative -will get TTE given history of aortic stenosis status post TAVR 08/2023. -Will monitor on MedSurg with telemetry. -CMP, CBC, magnesium, TSH ordered for the AM. (2) Syncope: Plan: -syncopal episode x1 -History of aortic stenosis status post TAVR 08/2023 carotid stenosis status post carotid endarterectomy. -Most likely syncopal episode due to dehydration, orthostatic hypotension, or medication issues. -Will get orthostatics at time of admission. -Will get TTE as above. Also get morning labs. -May consider stopping metoprolol if symptoms persist. (3) Aortic stenosis: Plan: -aortic stenosis status post TAVR 08/2023 -Will get TTE as above. (4) Hyperlipidemia: Plan: -Continue home statin. (5) Hypertension: Plan: -Continue outpatient medications. -May consider stopping metoprolol if symptoms persist. Plan Fluids: none, Nutrition: Heart healthy Code status: Full code DVT ppx: Will hold for now, may reconsider if prolonged hospitalization PT/OT: consulted Dispo: med/surg with tele History of Present Illness Chief Complaint: Chest pain, syncope Primary Care Provider: Que Mota DO Patient is an 84-year-old male with past medical history of aortic stenosis status post TAVR 08/2023, CAD, hyperlipidemia, osteopenia, history of carotid endarterectomy due to carotid stenosis, and hypertension. She presents to the hospital with a [place] episode [place]. Patient states that she stood on a [place] event and had a syncopal event. She was caught by people sitting next to her. Since then she has felt off and fatigued. This morning she woke up and felt warm, but started to have some left-sided chest pain that lasted 30 minutes and was burning. She was aware that she may pain again and presented to the hospital. Denies any nausea, vomiting, abdominal pain, diarrhea, or cough. States that she does not drink or smoke. States that she has been trying to stay well-hydrated. States that there hasn't been any changes in her medications recently. Allergies Allergy/AdvReac Type Severity Reaction Status Date / Time Penicillins Allergy Mild Verified 07/16/24 10:42 Sulfa (Sulfonamide Allergy Mild unknown Verified 07/16/24 10:42 Antibiotics) alendronate sodium Allergy Unknown . Verified 07/16/24 10:42 atorvastatin Allergy Unknown MUSCLE Verified 07/16/24 10:42 ACHES cephalexin Allergy Unknown UNKNOWN Verified 07/16/24 10:42 chicken derived Allergy Unknown Unknown Verified 07/17/24 10:47 Cipro AdvReac Unknown N/V Verified 01/22/18 10:20 ciprofloxacin AdvReac Unknown N/V Verified 07/16/24 10:42 Ibandronic Acid Allergy Unknown . Uncoded 07/16/24 10:42 Home Medications Medication Instructions Recorded Confirmed Type acetaminophen 500 mg tablet 500 mg PO Q4H PRN Pain 02/02/19 07/16/24 History multivitamin 1 tab PO QAM 02/02/19 07/16/24 History nitroglycerin 0.4 mg sublingual 0.4 mg sublingual DIRECTED PRN 02/02/19 07/16/24 History tablet Chest Pain rosuvastatin 40 mg tablet 40 mg PO HS 02/02/19 07/16/24 History calcium carbonate (Calcium 500) 1,000 mg PO QAM 02/15/19 07/16/24 History isosorbide mononitrate 120 mg 120 mg PO QAM 02/15/19 07/16/24 History tablet,extended release 24 hr omega 3-suz-que-fish oil 1,000 mg 1 cap PO QPM 02/15/19 07/16/24 History (120 mg-180 mg) capsule (Fish Oil) ascorbic acid (vitamin C) 500 mg 500 mg PO QAM 07/16/19 07/16/24 History tablet amlodipine 5 mg tablet 5 mg PO PM 04/08/20 07/16/24 History aspirin 81 mg chewable tablet 81 mg PO DAILY 05/30/23 07/16/24 History cyanocobalamin (vitamin B-12) 500 500 mcg PO DAILY #30 tabs 07/22/23 07/16/24 Rx mcg tablet (Vitamin B-12) metoprolol succinate 25 mg 25 mg PO DAILY 09/26/23 07/16/24 History tablet,extended release 24 hr (Toprol XL) famotidine 40 mg tablet 40 mg PO DAILY #30 tabs 05/02/24 07/16/24 Rx docusate sodium 100 mg capsule 100 mg PO BID #60 caps 05/06/24 07/16/24 Rx lidocaine 5 % topical patch 1 patch transdermal DAILY #15 ea 05/06/24 07/16/24 Rx tramadol 50 mg tablet 50 mg PO Q8H PRN pain (scale score 07/02/24 07/16/24 Rx 7-10) #15 tabs Past Med/Surg History Problem List (Updated 07/16/24 @ 15:17 by Jagdeep Cedeno DO) Syncope (Acute) Chest pain (Acute) Syncope Chest pain Sacral fracture (Acute ~05/03/24) Acute nondisplaced sacral alar fracture Leukocytosis Ambulatory dysfunction (Acute) Closed fracture of sacrum (Acute 05/03/24) Left sided sciatica Left leg pain History of ankylosing spondylitis Chronic kidney disease, stage 3 Pancreatic lesion 05/2021 CT showed 5mm side branch IPMN. Radiology reviewed study from 03/2020 and lesion grossly stable. Allergic rhinitis History of basal cell carcinoma Renal cyst (Acute) CAD, multiple vessel (Acute) Disc degeneration, lumbar (Acute) HLA-B27 positive arthropathy (Chronic) Hyperlipidemia (Acute) Osteopenia (Chronic) Prediabetes (Acute) Aortic stenosis Hx aortic valve replacement 09/2024 Hypertension (Chronic) Carotid stenosis (Acute) Medical History Gastroesophageal reflux disease TIA (transient ischemic attack) C. difficile colitis Surgical History History of tonsillectomy History of oral surgery History of cataract surgery Hx of heart artery stent Family History Mother Breast cancer Brother Coronary heart disease Hypertension Father Hypertension Coronary heart disease Grandmother (Maternal) Gastric cancer Grandfather (Maternal) Coronary heart disease Denies family history of Ovarian cancer Colorectal cancer Social History Smoking Status: Never smoker Second Hand Exposure: No; Do You Dip or Chew Tobacco: No; Hx Alcohol Use: No Hx Substance Use: No Preferred Language: Estonian Communication Ability: Effective Hearing Ability: Normal Leather Cleaner Required: No Beliefs That Will Affect Care: None marital status: / Current Living Situation: Alone current occupational status: retired Feels Safe at Home: Yes Childhood Exposure to Second-Hand Smoke: Yes Diet: regular caffeine: Yes Dental Care, Regularly: Yes Physical Activity Frequency: 1-2 Times per Week Seatbelt Use: always Sunscreen Use: Yes Assistive Devices: Cane and Walker Review of Systems Review of Systems: All systems reviewed & are unremarkable except as noted in Subjective Physical Exam Physical Exam: Constitutional: well-appearing, no acute distress HEENT: NCAT, no conjunctival injection CV: regular rhythm, no murmur appreciated, extremities well-perfused, no LE edema Resp: CTABL, no wheezes/rales/rhonchi appreciated, no increased work of breathing GI: soft, nondistended, nontender, BS normoactive MSK: no gross deformities appreciated Skin: warm, dry, no rash appreciated Neuro: alert, oriented, no focal neurologic deficit appreciated Results & Data Results & Data Vital Signs (Past 12 Hours) Vital Signs Temp Pulse Resp BP Pulse Ox O2 Del Method 07/16/24 10:16 53 L 07/16/24 09:11 Room Air 07/16/24 09:10 95 Room Air 07/16/24 09:03 36.8 C 62 18 181/70 H 96 Room Air Supervising Physician Co-Signing Physician Notes I personally saw and examined the patient. I independently reviewed the labs, EKG, imaging, problem list, medication list, past medical history and family history. I verified all self points and agree with resident physician Dr Colin Gaviria, with the following exceptions and/or additions: 84-year-old female who presents to the ER following a syncopal event yesterday and presyncope today. No recent changes to her medications. No fever, chills, respiratory, gastrointestinal or urinary symptoms. She currently feels at her baseline. Orthostatics were performed in the emergency room with a 20 point drop in her systolic pressure however she reports being asymptomatic at that time. O/E HS RRR, no murmurs, Chest CTAB, Abdo SNT A/P Syncope - TTE, monitor on telemtry for arrhythmia given lack of symptoms prior to syncope and consider outpatient director of cardiac cath lab. Possibly just orthostasis but elect to continue her usual medications to see if this continues to occur rather than adjust them on admission Chest pain - as above
[2024-07-16] MEDS ORDERED: ACETAMINOPHEN 325 MG TAB PO PRN (10:39)
[2024-07-16] MEDS ORDERED: ONDANSETRON INJ 2 MG/ML 2 ML VIAL IV PRN (10:39)
--- OUTSIDE RECORDS SUMMARY | 2024-07-16 17:33 | External Medical Summary | Summary of Care ---
Author Name Unknown Organization [facility] Address [address] [place] [address] Phone [phone] Care Team Providers Care Chief Of Service Name Role Phone Maximino Shirley MD Primary Care Provi vlad Reason for Visit * Reason Comments Follow Up Encounter Details Date Type Department Care Team (Late st Contact Info) Description 07/04/2024 2:30 PM EDT Office Visit Vascular Surgery, [facility] [address] [place] [address] Kaleb Adam MD [address] [place] [address] Carotid stenosis, non-symptomatic, bilateral*; Internal carotid artery stent present Allergies Active Allergy Reactions Criticality Noted Date Comments Alendronate 08/30/2022 Other reaction(s): . Atorvastatin 08/30/2022 Other reaction(s): MUSCLE ACHES Cephalexin Unknown 08/30/2022 Ciprofloxacin 02/19/2014 Drop in kidney functions, rash Hydrodiuril 01/06/2009 Sob and headache Lisinopril 09/26/2023 cough Penicillins 05/26/1999 rash Sulfa Antibiotics 05/26/1999 childhood unk documented as of this encounter (statuses as of 07/05/2024) Medications Medication Sig Dispensed Refills Start Date End Date Status CALCIUM + D 600-200 MG-UNIT PO TABSIndications:Ost eoporosis 1 tablet twice daily with food 60 5 03/18/2006 Active Additional Information Patient not taking.Reported on 07/04/2024 MULTIVITAMIN PO TABSIndications:Ost eoporosis 1 tab daily 30 5 03/18/2006 Active Probiotic Product (PROBIOTIC DAILY) Capsule Take 1 Cap by mouth daily. Active Ascorbic Acid (VITAMIN C) 1000 MG Tablet Take 1 Tablet by mouth in the morning. Active nitroglycerin (NITROSTAT) 0.4 MG SUBLIndications:Chr onic coronary artery disease Place 1 Tab under the tongue every 5 minutes as needed for Pain, Chest. X 3 1 Tab 1 02/08/2019 Active Price-3 Fatty Acids (FISH OIL) 1000 MG Capsule Take 1 Capsule by mouth in the morning. Active Cyanocobalamin 500 MCG Oral Tablet daily. 07/22/2023 Active traMADol HCl 50 MG Oral Tablet (Ultram) 1 Tablet. 06/27/2023 Active Aspirin 81 MG Oral Tablet Chewable Take 1 Tablet by mouth in the morning. Active Calcium 500 MG Oral Tablet Take 2 Tablets by mouth in the morning. Active amLODIPine Besylate 5 MG Oral Tablet (Norvasc)Indication s:HTN, goal below 140/90,HTN, goal to be determined,Intermed iate coronary syndrome (HCC) take 1 tablet by mouth once daily 90 Tablet 3 09/11/2023 Active Azithromycin 500 MG Oral Tablet (Zithromax) Take 1 tablet by mouth 30-60 mg prior to any dental work. 1 Tablet 4 09/26/2023 Active Diclofenac Sodium 1 % External Gel (Voltaren) as needed. 09/20/2023 Active Metoprolol Succinate ER 25 MG Oral Tablet Extended Release 24 Hour (toPROL XL) Take 1 Tablet by mouth in the morning. 90 Tablet 3 11/05/2023 Active Rosuvastatin Calcium 40 MG Oral Tablet (Crestor)Indication s:Dyslipidemia, goal LDL below 70 Take 1 Tablet by mouth every evening. 90 Tablet 3 12/24/2023 Active Isosorbide Mononitrate ER 120 MG Oral Tablet Extended Release 24 Hour (Imdur)Indications: Chronic coronary artery disease,HTN, goal below 140/90 TAKE 1 TABLET BY MOUTH DAILY 90 Tablet 3 03/20/2024 Active Acetaminophen 325 MG Oral Tablet (Tylenol) Take by mouth. Active documented as of this encounter (statuses as of 07/05/2024) Active Problems Problem Noted Date Diagnosed Date Carotid stenosis, non-symptomatic, bilateral Internal carotid artery stent present 07/04/2024 LBBB (left bundle branch block) 09/23/2023 History of transcatheter aortic valve replacemen t (TAVR) 09/20/2023 Asymptomatic stenosis of right carotid artery Chest pain 02/16/2019 Exertional angina 11/17/2016 Severe aortic stenosis 11/17/2016 History of right-sided carotid endarterectomy Mitral valve regurgitation 11/17/2012 S/P angioplasty with stent 11/16/2012 Excessive cerumen in ear canal 03/08/2012 Otitis externa, chronic 03/08/2012 Sensorineural hearing loss, bilateral 03/08/2012 Degeneration of cervical intervertebral disc 10/2011 GOPAL inhibitor intolerance 06/29/2011 Malignant neoplasm of skin of parts of face 01/19 Overview: ICD-10 update of inactive term Dyslipidemia, goal LDL below 70 10/30/2009 Overview: Per Lipid Taxonomy. Intermediate coronary syndrome 09/04/2009 ADVERSE EFFECT to Norvasc 08/22/2007 Osteoporosis 03/18/2006 ADVANCE DIRECTIVE INFORMATION 10/22/2005 Overview: Yes, Patient instructed to provide copy of advance directive for provider to review and to be scanned into Electronic Medical Record FAMILY HX-GI MALIGNANCY 10/22/2005 FAMILY HX-BREAST MALIG 10/22/2005 POLYARTHRITIS [id number] + 04/07/2004 Allergic rhinitis 04/07/2004 HTN, goal below 140/90 Menopause DIFFUS CYSTIC MASTOPATHY Chronic coronary artery disease Overview: H/o JOSE MANUEL to LADx2; Residual serial 50% RCA lesions; documented as of this encounter (statuses as of 07/05/2024) Resolved Problems Problem Noted Date Diagnosed Date Resolved Date Abnormal coagulation profile 11/17/2016 11/17/2016 ACTIVE CASE MANAGEMENT 09/24/200909/07 Overview: Breana Rich RN CM EXAMINATION OF PARTICIPANT I N CLINICAL TRIAL-Gen[employer] 09/05/2009 03/06/2010 Overview: Renamed Per Clinical Trials Billing Project. Study Titile: Genomic Markers for Patients with Cardiovascular Disease Project #[id number] PI: Nadja Shannon MD Please call [phone] with study related questions GENOMICS CARDIO RESEARCH OTHER*[id number] 09/05/2009 12/28/2016 Overview: Renamed Per Clinical Trials Billing Project. Study Titile: Genomic Markers for Patients with Cardiovascular Disease Project #[id number] PI: Nadja Shannon MD Please call [phone] with study related questions HTN, goal below 140/90 10/17/200712/19 Overview: Resolved per Duplicate Protocol #2. Dyslipidemia, goal to be determined 12/20/2006 10/15/2009 Overview: Per Lipid Taxonomy Mixed dyslipidemia Overview: Per Lipid Taxonomy. Hyperlipidemia with target LDL less than 100 07/21/2015 Overview: ICD-10 update of inactive term documented as of this encounter (statuses as of 07/05/2024) Immunizations Name Administration Dates Next Due Seasonal Influenza, Quadriva lent Hd (Fluzone Hd) 08/29/2023 Seasonal Influenza, Split, I IV3, With Preserve, Inj 09/06/2014,08/27/2013,08/16/2012,2010,09/16/2010,09/05/2009,08/29/2008,1 ,09/29/2006 TDAP, Age 7 and older, IM (Adacel) 06/21/2005 Varicella Zoster Vaccine (Adult) 04/29/2014 documented as of this encounter Social History Tobacco Use Types Packs/Day Years Used Date Smoking Tobacco: Never Smokeless Tobacco: Never Tobacco Cessation:Counseling Given: No Alcohol Use Standard Drinks/Week Comments No 0 (1 standard drink = 0.6 oz pur e alcohol) rare Personal Safety Answer Date Recorded Do you feel unsafe or have concerns for your saf ety? No 05/26/2023 Do you have concerns for you r family's safety? (Household - for ages 0-17 years) Not on file 05/26/2023 Utilities Answer Date Recorded Do you have trouble paying y our heating, water, or electric bill? (Adult - for ages 18 years and over) Not on file 06/21/2024 Is your family able to pay t he heat, water, or electric bill? (Household - for ages 0-17 years) Not on file 06/21/2024 Does your family have access to good internet? (Household - for ages 0-17 years) Not on file 06/21/2024 Social Connections Answer Date Recorded How often do you feel lonely or isolated from those around you? (Adult - for ages 18 years and over) Not on file 05/08/2024 Transportation Needs Answer Date Record ed READ ONLY Do you have troubl e getting a ride to medical visits or work? Never True 05/26/2023 Does your family have a hard time getting a ride to doctors visits? (Household - for ages 0-17 years) Not on file 05/26/2023 Has lack of transportation k ept you from medical appointments, meetings, work, or from getting things needed for daily living? Check all that apply. (Adult - for ages 18 years and over) Not on file 05/26/2023 Do you (or your family) have trouble finding or paying for a ride (transportation)? (Household - for ages 0-17 years) Not on file 05/26/2023 Housing Stability Answer Date Recorded Do you currently live in a s helter or have no steady place to sleep at night? (Adult - for ages 18 years and over) Not on file 05/26/2023 READ ONLY Do you think you a re at risk of becoming homeless? No 05/26/2023 Does your family worry about paying for your home or becoming homeless? (Household - for ages 0-17 years) Not on file 0 05/26/2023 Are you homeless or worried that you might be in the future? (Adult - for ages 18 years and over) Not on file 3 Are you (or your family) raffy eless or worried that you might be in the future? (Household - for ages 0-17 years) Not on file Food Insecurity Answer Date Recorded Do you need food for this week? No 05/26/2023 Are you able to get enough f ood for your family? (Household - for ages 0-17 years) Not on file 05/26/2023 Does your family need food t his week? (Household - for ages 0-17 years) Not on file 05/26/2023 Do you always have enough fo od for your family? (Household - for ages 0-17 years) Not on file 05/26/2023 Sex and Gender Information Value Date Recorded Sex Assigned at Not on file Gender Identity Not on file Sexual Orientation Not on file Job Start Date Occupation Industry Not on file Not on file Not on file documented as of this encounter Last Filed Vital Signs Vital Sign Reading Time Taken Comments Blood Pressure 148/62 07/04/2024 2:27 PM EDT Pulse 54 07/04/2024 2:27 PM EDT Temperature 35.9 C (96.7 F) 07/04/2024 2:27 PM ED T Respiratory Rate - - Oxygen Saturation - - Inhaled Oxygen Concentration - - Weight 58 kg (127 lb 14.4 oz) 07/04/2024 2:27 PM EDT Height - - Body Mass Index 22.66 03/28/2024 10:27 AM EDT documented in this encounter Functional Status Functional Status Response Date of Assess ment Are you deaf or do you have serious difficulty h earing? No 05/26/2023 Are you blind or do you have serious difficulty seeing, even when wearing glasses? No 05/26/2023 Do you have serious difficul ty walking or climbing stairs? (5 years old or older) No 05/27/2023 Do you have difficulty dress ing or bathing? (5 years old or older) Yes 05/26/2023 Because of a physical, menta l, or emotional condition, do you have difficulty doing errands alone such as visiting a doctor s office or shopping? (15 years old or older) No 05/26/20 Cognitive Status Response Date of Assessm ent Because of a physical, menta l, or emotional condition, do you have serious difficulty concentrating, remembering, or making decisions? (5 years old or older) No 05/26/2023 documented as of this encounter Progress Notes * Sánchez Benítez PA-C - 07/04/2024 2:30 PM EDT Images from the original note were not included. Date of Service: 07/04/2024 2:24 PM Zulay Palencia is a 84 year old female. Patient being seen in consultation at the request of Maximino Shirley MD Chief Complaint: Return pt, annual surveillance of carotid stenosis Remains asymptomatic from her carotid disease She broke her pelvis in April, treated non-op HPI: CAROTID DISEASE: S/P R CEA in [address] Motley at [facility]. Patient denies recent TIA, recent stroke and recent amaurosis fugax. Carotid duplex exam at [facility] identified the right internal carotid with 70- 99% stenosis and theleft internal carotid with less than 50% stenosis. S/P Right TCAR under MAC on 05/26/[address] Adam for >90% stenosis of ROSEMARY FAMILY HISTORY: Family history is noncontributory. Current Outpatient Medications Medication Sig Dispense Refill CALCIUM + D 600-200 MG-UNIT PO TABS 1 tablet twice daily with food 60 5 MULTIVITAMIN PO TABS 1 tab daily 30 5 Probiotic Product (PROBIOTIC DAILY) Capsule Take 1 Cap by mouth daily. Ascorbic Acid (VITAMIN C) 1000 MG Tablet Take 1 Tablet by mouth in the morning. nitroglycerin (NITROSTAT) 0.[address] 1 Tab under the tongue every 5 minutes as needed for Pain, Chest. X 3 1 Tab 1 Price-3 Fatty Acids (FISH OIL) 1000 MG Capsule Take 1 Capsule by mouth in the morning. Cyanocobalamin 500 MCG Oral Tablet daily. traMADol HCl 50 MG Oral Tablet (Ultram) 1 Tablet. Aspirin 81 MG Oral Tablet Chewable Take 1 Tablet by mouth in the morning. Calcium 500 MG Oral Tablet Take 2 Tablets by mouth in the morning. amLODIPine Besylate 5 MG Oral Tablet (Norvasc) take 1 tablet by mouth once daily 90 Tablet 3 Azithromycin 500 MG Oral Tablet (Zithromax) Take 1 tablet by mouth 30-60 mg prior to any dental work. 1 Tablet 4 Diclofenac Sodium 1 % External Gel (Voltaren) as needed. Metoprolol Succinate ER 25 MG Oral Tablet Extended Release 24 Hour (toPROL XL) Take 1 Tablet by mouth in the morning. 90 Tablet 3 Rosuvastatin Calcium 40 MG Oral Tablet (Crestor) Take 1 Tablet by mouth every evening. 90 Tablet 3 Isosorbide Mononitrate ER 120 MG Oral Tablet Extended Release 24 Hour (Imdur) TAKE 1 TABLET BY MOUTH DAILY 90 Tablet 3 No current facility-administered medications for this visit. Review of patient's allergies indicates: Allergen Reactions Alendronate Other reaction(s): . Atorvastatin Other reaction(s): MUSCLE ACHES Cephalexin Unknown Ciprofloxacin Drop in kidney functions, rash Hydrodiuril Sob and headache Lisinopril cough Penicillins rash Sulfa Antibiotics childhood unk Patient Active Problem List Diagnosis POLYARTHRITIS [id number] + Allergic rhinitis ADVANCE DIRECTIVE INFORMATION HTN, goal below 140/90 Menopause DIFFUS CYSTIC MASTOPATHY FAMILY HX-GI MALIGNANCY FAMILY HX-BREAST MALIG Osteoporosis ADVERSE EFFECT to Norvasc Intermediate coronary syndrome (HCC) Chronic coronary artery disease Dyslipidemia, goal LDL below 70 Malignant neoplasm of skin of parts of face GOPAL inhibitor intolerance Degeneration of cervical intervertebral disc Excessive cerumen in ear canal Otitis externa, chronic Sensorineural hearing loss, bilateral S/P angioplasty with stent Mitral valve regurgitation Exertional angina (HCC) Severe aortic stenosis History of right-sided carotid endarterectomy Chest pain Asymptomatic stenosis of right carotid artery History of transcatheter aortic valve replacement (TAVR) LBBB (left bundle branch block) Carotid stenosis, non-symptomatic, bilateral Internal carotid artery stent present Past Medical History: Diagnosis Date Allergic rhinitis Chronic coronary artery disease H/o JOSE MANUEL to LADx2; Residual serial 50% RCA lesions; Diffuse cystic mastopathy Diverticulosis of colon HTN, goal below 140/90 stable off meds Hyperlipidemia LDL goal < 100 Menopause POLYARTHRITIS [id number] + 04/07/2004 Past Surgical History: Procedure Laterality Date COLONOSCOPY, GI REFERRAL OP 03/21/2005 repeat 2009 for + fam hx CORONARY ANGIOGRAPHY W/LEFT HEART CATH Right 02/16/2019 CORONARY ANGIOGRAPHY W/LEFT HEART CATH performed by Delgado Wolf DO [place] [facility] [place]ONARY ANGIOGRAPHY W/LEFT HEART CATH Right 08/10/2023 CORONARY ANGIOGRAPHY W/LEFT HEART CATH performed by Brian Hawkins MD at [facility] PEDIATRIC ECHO KAYLI CONGENITAL INTERP - PROBE PLACEMENT N/A 02/18/2019 ECHOCARDIOGRAPHY, TRANSESOPHAGEAL, FOR CONGENITAL ANOMALIES; INCLUDING PROBE PLACEMENT, IMAGE ACQUISITION, INTERPRETATION AND REPORT performed by [facility] at [facility] RPLCM[facility] PROST AORTIC VALVE OPEN XCP HOMOGRF/STENT REMOVE CATARACT, INSERT LENS PROSTH REMOVE TONSILS & ADENOIDS, UNDER 12 Tonsillectomy/Adenoids,<12 Y/O REPLACE AORTIC VALVE, PERCUTANEOUS FEMORAL Bilateral 09/20/2023 REPLACE AORTIC VALVE, PERCUTANEOUS FEMORAL performed by Brian Hawkins MD at [facility] REPLACE AORTIC VALVE, PERCUTANEOUS FEMORAL Bilateral 09/20/2023 REPLACE AORTIC VALVE, PERCUTANEOUS FEMORAL performed by Sánchez Garcia MD at [facility] TRANSCATH STENT-CAROTID ARTERY, W/EMBOL PROTECTION Right 05/26/2023 CAROTID STENT WITH DISTAL PROTECTION TRANSCAROTID ARTERY REVASCULARIZATION performed by Kaleb Cassidy MD at [facility] Family History Problem Relation Name Age of Onset Cancer Mother breast age 65 Musculo-skeletal Disorder Mother osteoporosis Heart Disorder Father cabg Cancer Father rectal, age 87 Cancer Grandmother (Maternal) stomach dec 70's Musculo-skeletal Disorder Grandfather (Maternal) arth Other (unknown) Grandmother (Paternal) 80's Heart Disorder Grandfather (Paternal) dec 50's Social History Socioeconomic History Marital status: Spouse name: cecily Number of children: 2 Years of education: Not on file Highest education level: Not on file Occupational History Occupation: teacher Employer: [employer] [id number] Comment: retired Tobacco Use Smoking status: Never Smokeless tobacco: Never Vaping Use Vaping status: Never Used Substance and Sexual Activity Alcohol use: No Comment: rare Drug use: No Sexual activity: Yes Partners: Male Other Topics Concern Service No Blood Transfusions No Caffeine Concern No Occupational Exposure No Hobby Hazards No Sleep Concern No Stress Concern No Weight Concern No Special Diet No Back Care No Exercise Yes Comment: walk qod Bike Helmet No Seat Belt Yes Self-Exams Yes Social History Narrative Not on file Social Determinants of Health Financial Resource Strain: Not on file Food Insecurity: No Food Insecurity (05/26/2023) Food Insecurity Do you need food for this week? (Adult - for ages 18 years and over): No Are you able to get enough food for your family? (Household - for ages 0-17 years): Not on file Does your family need food this week? (Household - for ages 0-17 years): Not on file Do you always have enough food for your family? (Household - for ages 0-17 years): Not on file Transportation Needs: No Transportation Needs (05/26/2023) Transportation Needs Do you have trouble getting a ride to medical visits or work? (Adult - for ages 18 years and over):Never True Does your family have a hard time getting a ride to doctors visits? (Household - for ages 0-17 years): Not on file Has lack of transportation kept you from medical appointments, meetings, work, or from getting things needed for daily living? Check all that apply. (Adult - for ages 18 years and over): Not on file Do you (or your family) have trouble finding or paying for a ride (transportation)? (Household - for ages 0-17 years): Not on file Social Connections: Unknown (05/08/2024) Social Connections How often do you feel lonely or isolated from those around you? (Adult - for ages 18 years and over): Not on file Housing Stability: Low Risk (05/26/2023) Housing Stability Do you currently live in a mcc or have no steady place to sleep at night? (Adult - for ages 18 years and over): Not on file Do you think you are at risk of becoming homeless? (Adult - for ages 18 years and over): No Does your family worry about paying for your home or becoming homeless? (Household - for ages 0-17 years): Not on file Are you homeless or worried that you might be in the future? (Adult - for ages 18 years and over): Not on file Are you (or your family) homeless or worried that you might be in the future? (Household - for ages0-17 years): Not on file COMPLETE REVIEW OF SYSTEMS: Cardiovascular: Negative for chest pain, shortness of breath, palpitations, angina or [place] Neurological: Negative for stroke, TIA, amaurosis fugax All other systems negative except for those noted above and in the history of present illness (HPI). GENERAL MULTI-SYSTEM PHYSICAL EXAM: VITAL SIGNS: BP 148/62 (BP Site: Left Arm, BP Position: Sitting, BP Cuff Size: Regular) | Pulse 54 | Temp 35.9 C (96.7 F) (Tympanic) | Wt 58 kg (127 lb 14.4 oz) | BMI 22.66 kg/m | BSA 1.61 m GENERAL MULTI-SYSTEM PHYSICAL EXAM:GENERAL: Normal grooming habits, no acute distress and appears stated age. NECK: No masses and Normal Thyroid. RCEA scar, RTCAR scar RESPIRATORY: respiratory effort normal and breath sounds normal. CARDIOVASCULAR: RRR, No murmur, no edema and no varicosities. SKIN: no ulcers, no rash, no induration, capillary refill normal and no dependent rubor. EYES: conjunctivae normal, eye lids normal, pupils normal and irises normal. NEUROLOGIC: Cranial nerves intact, Motor function intact and Sensory exam intact LEFT LEG: Soft tissue ecchymosis of left leg, groin to tibial region PULSE SCALE: Carotid Right:----Bruit: No Left:----Bruit: No Radial Right: 3 Left: 3 Femoral Right: 2 Left: 2 PULSE SCALE: 4=Aneurysmal; 3=Normal; 2=Diminished; 1=Barely Palpable; 0=Absent DIAGNOSTIC STUDIES: 06/25/24 Carotid Duplex: ROSEMARY 70/13, patent TCAR, LICA 133/25, ante verts The above diagnostic images were directly visualized and independently interpreted by me on 07/04/2024 with results as above 06/01/23 Carotid Duplex: ROSEMARY 87/20, patent stent. LICA 87/21 04/13/23 CTA Head/Neck: High grade stenosis >90% stenosis of ROSEMARY. Heavily nonobstructive plaque of LICA 03/14/23 Carotid Duplex: ROSEMARY 663/171, LICA 126/24, ante verts 01/13/22: CTA Neck: 70% R carotid stenosis. 10/29/21: Carotid Duplex: ROSEMARY 384/104, LICA 86/16 CARDIAC STUDIES: LABS: Lab Results Component Value Date/Time CREATININE - [facility] 0.9 10/24/2023 09:35 AM CREATININE - [facility] 0.8 09/22/2023 04:46 AM CREATININE - [facility] 0.8 09/21/2023 04:15 AM CREATININE - [facility] 0.8 02/18/2019 05:52 AM CREATININE - [facility] 0.9 02/17/2019 05:57 AM CREATININE - [facility] 0.9 02/16/2019 04:29 PM CREATININE, RANDOM URINE - [facility] 324 03/20/2010 09:11 AM CREATININE-OUTSIDE LAB 0.83 06/10/2021 12:00 AM CREATININE-OUTSIDE LAB 0.99 04/02/2020 12:00 AM CREATININE-OUTSIDE LAB 0.91 02/02/2019 12:00 AM Lab Results Component Value Date/Time LDL (CALCULATED)-OUTSIDE LAB 41 06/10/2021 12:00 AM LDL CHOLESTEROL (CALCULATED) - [facility] 47 02/17/2019 05:57 AM LDL CHOLESTEROL (DIRECT MEASURE) - [facility] NOT APPLICABLE 09/06/2014 09:45 AM LDL CHOLESTEROL (DIRECT MEASURE) - [facility] 107 06/11/2013 08:34 AM The above clinical lab tests were reviewed by me on 07/04/24 IMPRESSIONS: S/P Right TCAR under MAC on 05/26/[address] Adam for >90% stenosis of ROSEMARY Patent stent on duplex S/P R CEA [place] [address] Motely with 70% re-stenosis, per 2021 CTA. ^ Velocities of ROSEMARY on last duplex <50% L carotid stenosis. S/P TVAR 09[place]20/[place] [facility] [place] nearly critical [place] valve stenosis, [facility] by [facility] CAD. S/P PTCI. Asymptomatic frequent ventricular ectopy with preserved left ventricular systolic function, on beta-rossi therapy HTN. Dyslipidemia. PLAN: The patient was counseled regarding the pathophysiology and natural history of carotid disease, as well as the symptoms of CVA/TIA/amaurosis fugax. Continue ASA 81 mg for platelet inhibition Continue Crestor 40 mg for dyslipidemia/hyperlipidemia/pleiotropic benefits RTC 1 yr [facility] with Dr. Adam with carotid duplex. The patient was seen and examined with Tejinder Adam MD. Sánchez Benítez PA-C I have reviewed the advanced practitioner documentation and agree. I saw and evaluated the patient on date of service referenced in note and have performed the following medically appropriate historyand/or exam: RTC today s/p R TCAR for Asymptomatic recurrent severe stenosis of R ICA. 06/25/24 Carotid Duplex: ROSEMARY 70/13, patent TCAR, LICA 133/25, ante verts 03/14/23 Carotid Duplex: ROSEMARY 663/171, LICA 126/24, ante verts Post op duplex: 06/01/23 Carotid Duplex: ROSEMARY 87/20, patent stent. LICA 87/21 Doing well post op. Continue ASA 81 mg for platelet inhibition Continue Plavix 75 mg daily, for stent patency Continue Crestor 40 mg for dyslipidemia/hyperlipidemia/pleiotropic benefits F/U one year with carotid duplex. Kaleb Adam MD Vascular Surgeon Department of Vascular Surgery [facility]\\ documented in this encounter Nursing Notes * Lindsey Jimenes CMA - 07/04/2024 2:30 PM EDT Reviewed the option of transferring scripts to [facility] pharmacy with patient and / or family. Lindsey Jimenes CMA documented in this encounter Plan of Treatment Upcoming Encounters Date Type Department Care Team (Late st Contact Info) Description 09/26/2024 10:20 AM EST Office Visit Otolaryngology [facility] [address] [address] Charlee Lyman PA-C [address] [address] 10/03/2024 9:30 AM EST Office Visit Cardiology, [facility] [address] [place] [address] Brian Hawkins MD [address] [facility] [place] [address] Scheduled Orders Name Type Priority Associated Diagnoses Orde r Schedule VASC DUPLEX CAROTID BILAT Medical Imaging Routine Carotid stenosis, non-symptomatic, bilateral Internal carotid artery stent present Ordered: 07/04/2024 Health Maintenance Due Date Last Done Comments Albumin/Creatinine Ratio 03/20/2013 03/20/2010 Depression Screening 05/30/2014 05/30/2013 DXA Scan 07/25/2014 07/25/2012, 02/2012, 07/09/2010, Additional history exists DTaP,Tdap,and Td Vaccines (2 - Td or Tdap) 06/21/2015 06/21/2005 COVID-19 Vaccine (3 - 2022- season) 2023 01/15/2021, 12/25/2020 Influenza Vaccine (FLU shot) (#1) 2024 08/29/2023, 08/28/2019, 09/06/2014, Additional history exists VITAMIN D LEVEL ONCE IN A LIFETIME-USE SMARTSET# [id number] Completed 09/06/2014, 03/20/2010, 03/18/2006 Pneumococcal Vaccine: 65+ Years Completed 09/01/2015, 10/07/2004 Zoster Vaccines Completed 09/11/2021, 06/21, 04/29/2014 HPV (Gardasil) Vaccine Aged Out No lo nger eligible based on patient's age to complete this topic Hepatitis B Vaccine Aged Out No longe r eligible based on patient's age to complete this topic MENINGOCOCCAL (MENACTRA/MENVEO) Aged Out No longer eligible based on patient's age to complete this topic documented as of this encounter Medical Devices Implanted Type Area Card Punching Machine Operator Device Identifier Shelf Expiration Date Model / Serial / Lot Stent Trnscarotid Enroute 8x30 - [id number] Implanted:Qty: 1 on 05/26/2023 by Kaleb Adam MD [place] [facility] [facility] [id number] 06/20/2025 [id number] / / [id number] documented as of this encounter Visit Diagnoses Diagnosis Carotid stenosis, non-symptomatic, bilateral- Primary Internal carotid artery stent present documented in this encounter Advance Directives * Full Code (Latest Code Status on File) Date Activated Date Inactivated Comments 09/20/2023 1:00 PM 09/22/2023 5:10 PM This order reflects the patients wishes and were consensually agreed upon. Question Answer Comments Discussion of Advance Directives occurred with: Patient * Full Code Date Activated Date Inactivated Comments 05/26/2023 3:15 PM 05/27/2023 6:25 PM This order ref lects the patients wishes and were consensually agreed upon. Question Answer Comments Discussion of Advance Direct pankaj occurred with: Not Discussed due to patient's condition * Full Code Date Activated Date Inactivated Comments 02/16/2019 1:05 PM 02/18/2019 8:57 PM This order r eflects the patients wishes and were consensually agreed upon. * Full Code Date Activated Date Inactivated Comments 09/04/2009 2:26 PM 09/05/2009 6:50 PM This order reflects the patients wishes and were consensually agreed upon. Question Answer Comments Discussion of Advance Directives occurred with: Patient * Full Code Date Activated Date Inactivated Comments 09/04/2009 2:05 PM 09/04/2009 2:26 PM This order reflects the patients wishes and were consensually agreed upon. Care Teams Chief Of Service Relationship Specialty Start Date End Date Maximino Shirley MD [address] [place] [address] [place] [id number] PCP - General Internal Medicine 02/05/15 documented as of this encounter"
--- NOTE | 2024-07-16 19:18 | XCELERA ---
[id number]
[2024-07-16] MEDS: DOCUSATE SODIUM 100 MG CAP PO SCH (21:03)
[2024-07-16] MEDS: amLODIPine BESYLATE 5 MG TAB PO SCH (21:04)
[2024-07-16] MEDS: ROSUVASTATIN CALCIUM 20 MG TAB PO SCH (21:04)
[2024-07-17] MEDS: MULTIVITAMIN TAB PO SCH (07:35)
[2024-07-17] MEDS: METOPROLOL SUCC 25MG EXT REL TAB PO SCH (07:35)
[2024-07-17] MEDS: FAMOTIDINE 40 MG TABLET PO SCH (07:35)
[2024-07-17] MEDS: ASPIRIN 81 MG CHEW PO SCH (07:35)
[2024-07-17] MEDS: CYANOCOBALAMIN (B-12) 500 MCG TABLET PO SCH (07:36)
[2024-07-17] MEDS: CALCIUM CARBONATE 1250MG TAB PO SCH (07:36)
[2024-07-17] MEDS: ASCORBIC ACID 500 MG TAB PO SCH (07:36)
[2024-07-17] MEDS: ISOSORBIDE MONO EXTENDED REL 60 MG TABCR PO SCH (07:36)
[2024-07-17 08:32] LABS: Basophils # (auto) 0.06 K/uL (0.00-0.20); Basophils % (auto) 0.9 %; Eosinophils # (auto) 0.13 K/uL (0.00-0.50); Hematocrit (blood only) 39.9 % (37.0-47.0); Hemoglobin 13.2 g/dl (12.0-16.0); Immature Granulocytes # (auto) 0.01 K/uL (0.01-0.20); Immature Granulocytes % (auto) 0.2 %; Lymphocytes # (auto) 1.22 K/uL (1.20-3.40); Lymphocytes % (auto) 19.2 %; Mean Corpuscular Hemoglobin 30.6 pg (25.0-34.0); Mean Corpuscular Hgb Conc 33.1 g/dL (32.0-36.0); Mean Corpuscular Volume 92.6 fL (80.0-100.0); Mean Platelet Volume 10.6 fL (9.4-12.4); Monocytes # (auto) 0.72 K/uL (0.11-0.59); Monocytes % (auto) 11.3 %; Neutrophils # (auto) 4.21 K/uL (1.40-6.50); Neutrophils % (auto) 66.4 %; Platelet Count 153 K/uL (130-400); RDW Coefficient of Variation 13.6 % (11.5-14.5); RDW Standard Deviation 46.5 fL (36.4-46.3); Red Blood Count 4.31 M/uL (4.20-5.40); White Blood Count 6.35 K/ul (4.8-10.8)
[2024-07-17 08:45] LABS: Albumin Globulin Ratio 1.7 (0.9-2); Albumin Level 4.4 gm/dl (3.4-5.0); BUN Creatinine Ratio 18.9 (10-20); Bilirubin,Total 0.6 mg/dl (0.2-1.0); Calcium 9.2 mg/dl (8.6-10.3); Creatinine Clr Calc Pharmacy 35.5 ml/min; Est GFR (African American) 67.1 ml/min; Est GFR (Non-African American) 57.9 ml/min; Globulin 2.6 gm/dl (2.5-4.0)
[2024-07-17 09:00] LABS: Thyroid Stimulating Hormone 1.299 uIu/ml (0.300-4.500)
[2024-07-17 11:39] VITALS: O2SAT 95
--- NOTE | 2024-07-17 11:52 | Billing Data ---
Date of Service July 16, 2024 Coding Level of Care Code 50452 INT INP/OBS CARE
--- NOTE | 2024-07-17 14:25 | Cardiology Consultation ---
Date of Consultation July 17, 2024 Assessment & Plan (1) Syncope: (2) Atypical chest pain: (3) ASCVD (arteriosclerotic cardiovascular disease): (4) S/P TAVR (transcatheter aortic valve replacement): (5) LBBB (left bundle branch block): Plan 84-year-old female admitted to [facility] on July 16, 2024 following a syncopal episode at [facility], also with atypical chest discomfort. The syncopal episode at [facility] on Tuesday appears to be most consistent with symptomatic orthostatic hypotension. Short term memory impairment observed with limited oral intake noted, echo with hyperdynamic LV systolic function. EKG with mild bradycardia only, without acute ST segment change. High-sensitivity troponin negative. Telemetry benign. Chest x-ray without acute process. Carotid duplex with atherosclerotic plaque, without evidence of hemodynamically significant stenosis. Recommendations: 1. Proper hydration encouraged. 2. 14-day ambulatory electrocardiogram (ZIO monitor) as an outpatient ([facility] Office aware, to be placed shortly after discharge). 3. Continue cardiac medications as presently prescribed for now; may need to reduce metoprolol dosing, pending ambulatory EKG findings. 4. General Cardiology follow-up shortly after the Zio resulted. 5. [facility] follow-up as scheduled with Dr. Brian Hawkins at [facility] on 10/03/2024 @ 9:30 AM Supervising Physician Co-Signing Physician Notes Case discussed with Juan Manuel Light PA-C. Agree with findings and plan. Patient discharged prior to ma having the opportunity to examine her in person. Solitario Julian DO History of Present Illness Reason for Consultation: Syncope, chest discomfort Requesting Physician: Dr. Dereje Alvarez MD Attending Physician: Dr. Dereje Robert MD History of Present Illness Ms. Zulay Palencia is a very pleasant 84-year-old female who presented to the [facility] ER on July 16, 2024 for evaluation of chest discomfort. Memory impairment noted per conversation today. Patient describes experiencing a funny feeling in her left upper outer chest on Tuesday, at rest, without associated symptoms, burning type sensation lasting for chest a second or two prior ton spontaneously resolving. Tuesday morning she awoke and was rushing to get ready for [facility]. She ate (milk, rice crispies, cookie, orange juice) and took all of her usual medications. She notes going to [facility] and, shortly after standing to sitting the last first verse experiencing a syncopal episode. This occurred shortly after standing. She notes feeling warm prior to experiencing syncope. She denies tongue biting or incontinence. No seizure type activity observed. Thereafter patient went home where she ate lunch and watch a College Tonight Game. The remainder of the day Tuesday was uneventful. Tuesday she awoke and went downstairs and watch some television. At that time she felt funny and was encouraged by her son to seek further evaluation. EKG on presentation revealed sinus bradycardia at 51 bpm with possible left atrial enlargement, voltage criteria for LVH, left bundle branch block type pattern. High-sensitivity troponin negative x 2 at 5.2 then 5.3 pg/mL. Continuous environmental monitoring specialist reveals sinus bradycardia in the upper 50s/sinus rhythm predominantly in the 60s. Chest x-ray without acute process. Resting echocardiography demonstrated hyperdynamic LV systolic function, EF greater than 70%. No regional wall motion abnormalities observed. No LVH noted. TAVR with acceptable trends valvular gradient, trace perivalvular leak. Mild mitral regurgitation noted. RVSP estimated to be normal. No pericardial effusion observed. Asymptomatic 20 point drop in systolic blood pressure noted in the ER Problem List: ASCVD Presentation with crescendo angina in August 2009 with catheterization demonstrating a 90% proximal LAD stenosis s/p 09/04/2009 PCI of the LAD at [facility] with two overlapping Hayes drug eluting stents. Atypical chest pain and abnormal Lexiscan nuclear stress testing in 2014 lead to June 2015 catheterization, PCI of the distal RCA with a 2.75 X 12 mm Xience drug eluting stent and PCI of the mid RCA with a 3 X 18 mm Xience drug eluting stent via right radial artery access. Presentation to [facility] with burning chest pressure radiating down the left arm in October 2016. Abnormal outpatient nuclear stress service team leader to diagnostic cardiac catheterization on November 19, 2016 (right radial artery) demonstrating right dominant coronary anatomy, mildly calcified LM with no significant disease, type 3 LAD with a widely patent stent and a 40% mid vessel stenosis (unchanged from prior cath), 30, 40% proximal LCX stenoses with moderate diffuse irregularities in the OM, widely patent mid and distal RCA stents, and a 40% proximal PDA stenosis. LV hyperdynamic EF >70%. Presentation in January 2019 with left-sided burning chest discomfort radiating to the left arm. Diagnostic cardiac catheterization performed on February 16, 2019 revealed hemodynamically insignificant coronary artery disease with a normal left main, 40% mid LAD lesion, patent proximal LAD stent, 30% left circumflex and 2nd obtuse marginal branch stenosis, and [id number] right coronary artery disease with a 40% proximal, 30% mid common 40% ostial RPDA stenosis. During that hospital course she also underwent a transesophageal echocardiogram that revealed calculated aortic valve area by planimetry of 1.3 centimeter squared PreTAVR cath-- hemodynamically insignificant, LAD stents patent, pLcx 40% stenosis, RCA stents patent, otherwise mild luminal irregularities, 08/10/2023 Severe aortic stenosis s/p TAVR (#25 mm Abbot Navitor valve), 09/20/2023 at [facility] with Dr. Hawkins New left bundle branch block post TAVR Asymptomatic frequent ventricular ectopy with preserved left ventricular systolic function Carotid occlusive disease status post right carotid endarterectomy complicated by UTI then C.difficile S/P Right TCAR under MAC on 05/26/[address] Adam for >90% stenosis of [place] Hypertension Hyperlipidemia Polyarthritis Osteoporosis Admission to [facility] in April 2024 with low back pain, osteoporotic left sacral ala fracture managed conservatively Family History: Mother at 96 with a CVA. Father at 91. He had a history of CABG and CEA. Brother x 2 status post CABG Social History: Nonsmoker. No alcohol. . Retired teacher. Lives in [place]. Son lives close. Daughter in [place]. Allergies Allergy/AdvReac Type Severity Reaction Status Date / Time Penicillins Allergy Mild Verified 07/16/24 10:42 Sulfa (Sulfonamide Allergy Mild unknown Verified 07/16/24 10:42 Antibiotics) alendronate sodium Allergy Unknown . Verified 07/16/24 10:42 atorvastatin Allergy Unknown MUSCLE Verified 07/16/24 10:42 ACHES cephalexin Allergy Unknown UNKNOWN Verified 07/16/24 10:42 chicken derived Allergy Unknown Unknown Verified 07/17/24 10:47 Cipro AdvReac Unknown N/V Verified 01/22/18 10:20 ciprofloxacin AdvReac Unknown N/V Verified 07/16/24 10:42 Ibandronic Acid Allergy Unknown . Uncoded 07/16/24 10:42 Home Medications Medication Instructions Recorded Confirmed Type acetaminophen 500 mg tablet 500 mg PO Q4H PRN Pain 02/02/19 07/16/24 History multivitamin 1 tab PO QAM 02/02/19 07/16/24 History nitroglycerin 0.4 mg sublingual 0.4 mg sublingual DIRECTED PRN 02/02/19 07/16/24 History tablet Chest Pain rosuvastatin 40 mg tablet 40 mg PO HS 02/02/19 07/16/24 History calcium carbonate (Calcium 500) 1,000 mg PO QAM 02/15/19 07/16/24 History isosorbide mononitrate 120 mg 120 mg PO QAM 02/15/19 07/16/24 History tablet,extended release 24 hr omega 6-xcm-fzy-fish oil 1,000 mg 1 cap PO QPM 02/15/19 07/16/24 History (120 mg-180 mg) capsule (Fish Oil) ascorbic acid (vitamin C) 500 mg 500 mg PO QAM 07/16/19 07/16/24 History tablet aspirin 81 mg chewable tablet 81 mg PO DAILY 05/30/23 07/16/24 History cyanocobalamin (vitamin B-12) 500 500 mcg PO DAILY #30 tabs 07/22/23 07/16/24 Rx mcg tablet (Vitamin B-12) metoprolol succinate 25 mg 25 mg PO DAILY 09/26/23 07/16/24 History tablet,extended release 24 hr (Toprol XL) famotidine 40 mg tablet 40 mg PO DAILY #30 tabs 05/02/24 07/16/24 Rx docusate sodium 100 mg capsule 100 mg PO BID #60 caps 05/06/24 07/16/24 Rx lidocaine 5 % topical patch 1 patch transdermal DAILY #15 ea 05/06/24 07/16/24 Rx tramadol 50 mg tablet 50 mg PO Q8H PRN pain (scale score 07/02/24 07/16/24 Rx 7-10) #15 tabs amlodipine 5 mg tablet 2.5 mg (1/2 x 5 mg) PO PM #0 tabs 07/17/24 07/16/24 Rx Patient History Medical History Hyperglycemia Gastroesophageal reflux disease TIA (transient ischemic attack) C. difficile colitis Surgical History History of tonsillectomy History of oral surgery History of cataract surgery Hx of heart artery stent Family History Mother Breast cancer Brother Coronary heart disease Hypertension Father Hypertension Coronary heart disease Grandmother (Maternal) Gastric cancer Grandfather (Maternal) Coronary heart disease Denies family history of Ovarian cancer Colorectal cancer Social History Smoking Status: Never smoker Second Hand Exposure: No; Do You Dip or Chew Tobacco: No; Hx Alcohol Use: No Hx Substance Use: No Preferred Language: Spanish Communication Ability: Effective Hearing Ability: Normal Auto Service Representative Required: No Beliefs That Will Affect Care: None marital status: / Current Living Situation: Alone current occupational status: retired Feels Safe at Home: Yes Childhood Exposure to Second-Hand Smoke: Yes Diet: regular caffeine: Yes Dental Care, Regularly: Yes Physical Activity Frequency: 1-2 Times per Week Seatbelt Use: always Sunscreen Use: Yes Assistive Devices: Cane and Walker Review of Systems Review of Systems: Complete review of System is as stated above, negative, or noncontributory. Short-term memory impairment observed today. Physical Exam Physical Exam: General: A&Ox3. NAD. Younger than physiological age. Neck: PER. Conjunctiva pink, sclera clear. HENT: Normocephalic. Atraumatic. Neck: Bilateral carotid bruits. No JVD. Heart: RRR, 64 bpm. No murmur. No rub. Lungs: Clear to auscultation. Abdomen: +BS. Extremities: Thick, without edema, clubbing, or cyanosis. Pulses: radial=2/4, posterior tibial=2/4. Limited neurological examination is without focal deficit. + Short term memory impairment noted. Results & Data Vital Signs (Past 12 Hours) Vital Signs Temp Pulse Pulse Resp BP BP Pulse Ox 07/17/24 11:38 36.3 C L 77 18 122/75 95 07/17/24 11:33 70 122/75 07/17/24 08:23 36.3 C L 74 17 160/66 H 94 07/17/24 07:13 59 L O2 Del Method 07/17/24 11:38 Room Air 07/17/24 11:33 07/17/24 08:23 Room Air 07/17/24 07:13 Laboratory Results Cardiac Enzymes 07/17/24 Range/Units 07:55 AST 19 (13-39) U/L CBC 07/17/24 Range/Units 07:55 WBC 6.35 (4.8-10.8) K/ul RBC 4.31 (4.20-5.40) M/uL Hgb 13.2 (12.0-16.0) g/dl Hct 39.9 (37.0-47.0) % Plt Count 153 (130-400) K/uL Neut # (Auto) 4.21 (1.40-6.50) K/uL Lymph # (Auto) 1.22 (1.20-3.40) K/uL Wetzel # (Auto) 0.72 H (0.11-0.59) K/uL Eos # (Auto) 0.13 (0.00-0.50) K/uL Baso # (Auto) 0.06 (0.00-0.20) K/uL Comprehensive Metabolic Panel 07/17/24 Range/Units 07:55 Sodium 140 (136-145) mmol/L Potassium 4.0 (3.5-5.1) mmol/L Chloride 104 (98-107) mmol/L Carbon Dioxide 30 (21-32) mmol/L BUN 17 (6-23) mg/dl Creatinine 0.90 (0.6-1.2) mg/dl Glucose 101 H (70-99(Fasting)) mg/dl Calcium 9.2 (8.6-10.3) mg/dl AST 19 (13-39) U/L ALT 9 (7-52) U/L Alkaline Phosphatase 66 (34-104) U/L Total Protein 7.0 (6.0-8.3) gm/dl Albumin 4.4 (3.4-5.0) gm/dl Intake and Output 07/16/24 07/17/24 07/17/24 22:59 06:59 14:59 Intake Total 120 / 120 Balance 120 / 120 Intake: Oral 120 / 120 Other: Weight 59.7 kg 59.7 kg Weight Measurement Method Built in [facility] Standing Scale (1) Syncope Syncope type: unspecified Qualified Code(s): R55 - Syncope and collapse
--- NOTE | 2024-07-17 14:41 | Ultrasound Report ---
ULTRASOUND OF THE CAROTID ARTERIES CLINICAL HISTORY: Carotid stenosis status post endarterectomy. Syncope. COMPARISON STUDY: Carotid artery ultrasound dated 05/15/2018. TECHNIQUE: Real-time, grayscale, and color Doppler sonography of the carotid arteries is performed. I mages are reviewed in the transverse and longitudinal planes. FINDINGS: The carotid arteries are patent bilaterally and demonstrate antegrade flow. There is advanced atheros clerotic plaque seen in the left carotid bulb. A stent is seen in the right carotid system. The stent is patent. Normal doppler arterial waveforms are seen throughout. Velocity measurements are listed b elow. Common carotid peak systolic velocity (cm/sec): RIGHT: 55 LEFT: 56 ICA proximal peak systolic velocity (cm/sec): RIGHT: 50 LEFT: 99 ICA mid peak systolic velocity (cm/sec): RIGHT: 57 LEFT: 75 ICA distal peak systolic velocity (cm/sec): RIGHT: 65 LEFT: 89 ICA/CC peak systolic ratio: RIGHT: 1.2 LEFT: 1.8 Antegrade flow was shown in the vertebral arteries. The external carotid arteries are patent. IMPRESSION: 1. Atherosclerotic plaque with no sonographic evidence of hemodynamically significant stenosis in the right or left carotid arterial system. 2. A right carotid stent is patent. 3. Antegrade flow is shown in the vertebral arteries. ACT 112: Negative or not required by law. Electronically signed by: Colin Santana M.D. 07/17/2024 2:40 PM
[2024-07-17 16:09] VITALS: RESP 17; TEMP 97.5
--- NOTE | 2024-07-17 16:26 | Discharge Summary ---
Discharge Summary Date of Service date of admission - July 16, 2024 date of discharge - July 17, 2024 Principal Dx & Hospital Course #1 = Principal Diagnosis (1) Syncope: Likely 2nd to dehydration and orthostatic hypotension. Was given IV fluids and Orthostatic BPs normalized. Echo showed intact TAVR. Carotid duplex showed patent carotid arteries. Telemetry did not show any dysrhythmia. Seen by [facility]. To be complete the following was advised - * 14-day ambulatory electrocardiogram (ZIO monitor) as an outpatient ([facility] to arrange). Additionally, her amlodipine dose was reduced from 5mg/day to 2.5mg/day. (2) Chest pain: Patient has prior h/o LAD stents & RCA stents. Fortunately her work-up was reassuring -- * Troponins were negative. * Telemetry showed normal sinus rhythm. * Echocardiogram showed normal LV function and normal LV wall motion. * TAVR function was normal on echo as well. * EKG showed no ischemic changes. Records revealed a cardiac cath in January 2018 as well as July 202307/2023 cath report -- There was no evidence to support PE/VTE thus work-up for such was not pursued while here. She was seen in consult by [facility]. Additional ischemic work-up was not advised given the above findings. Her pain was felt to be non-ischemic in nature. (3) Aortic stenosis: s/p TAVR 08/2023. Echo this admission with normal TAVR gradients. She has follow-up with the [facility] -- Dr. Brian Hawkins -- at [facility] on 10/03/2024 @ 9:30 AM. (4) Hyperlipidemia: Continue home statin. (5) Hypertension: Due to #1 her amlodipine was reduced from 5mg/day to 2.5mg/day. Metoprolol and imdur doses were left as is. Notes For Next Care Provider Medication Changes From Visit Amlodipine - dose reduced to 2.5mg/day from 5mg/day. Admission HPI Per Admitting Provider Patient is an 84-year-old male with past medical history of aortic stenosis status post TAVR 08/2023, CAD, hyperlipidemia, osteopenia, history of carotid endarterectomy due to carotid stenosis, and hypertension. She presents to the hospital with a syncopal episode yesterday at [employer]. Patient states that she stood on a [employer] event and had a syncopal event. She was caught by people sitting next to her. Since then she has felt off and fatigued. This morning she woke up and felt warm, but started to have some left-sided chest pain that lasted 30 minutes and was burning. She was aware that she may pain again and presented to the hospital. Denies any nausea, vomiting, abdominal pain, diarrhea, or cough. States that she does not drink or smoke. States that she has been trying to stay well-hydrated. States that there hasn't been any changes in her medications recently. Discharge Exam gen - NAD, pleasant, mild cognitive impairment noted neck - no JVD mouth - MMM heart - 1/6 systolic murmur RUSB, RRR, s1 s2 lungs - CTA b/l abd - soft NT ND BS+ ext - no edema, pulses 2+ b/l neuro - strength 5/5 x 4 exts; no facial droop Discharge Plan Discharge Items Patient Disposition: Home - Self-Care Reason For Visit: syncope Discharge Diagnosis: 1. syncope (passing out spell) - likely due to drop in blood pressure with standing 2. chest discomfort - no evidence of heart attack 3. history of carotid artery disease - ultrasound with normal carotid blood flow 4. coronary artery disease 5. history of "TAVR" procedure Activity: Resume your previous activity Non-emergency contact: Primary Care Provider Call non-emergency contact if: you have any medication questions and your symptoms worsen Follow-up/Referrals: Onel Light [Physician Business Operations Analyst] - (Mr Light's office will be contacting you regarding the heart monitor that will be used at home, etc.) Que Mota DO [Primary Care Provider] - 07/19/24 2:00 pm (APPT. WITH Devin NORRIS) Diet: Heart Healthy Addtl Attending Provider Instructions: Mrs Palencia, You suffered an episode of syncope while at your [employer]ondo[employer]. Syncope, also known as "passing out" or "fainting spell," has a variety of causes (see handout). In your case it was likely brought on by a drop in blood pressure with standing. When the blood pressure drops there is a temporary lack of blood flow to the brain which leads to feeling dizzy/lightheaded and, in many cases, passing out. You received some IV fluids and today, 07/17/24, your blood pressures with standing are better. The drop in blood pressure with standing was either due to being mildly dehydrated and/or due to blood pressure medicine. During the stay we did not find evidence of heart attack, abnormal heart rhythm, or infections. [facility] saw you in consult and recommends an outpatient heart monitor that you will wear at home. This will be to rule out abnormal heart rhythms as the cause of the event. Recommendations - 1. stay well-hydrated day to day 2. please check your blood pressure every day at home; write these in a notebook and show them to your family doctor & your associate professor of anthropology 3. please lower your amlodipine blood pressure medicine from 5mg (1 full tablet) to 2.5mg (HALF tablet) once daily; you can do this by using a pill cutter; simply cut the amlodipine in half Follow-up - see separate section Return to [facility] if - * you are having dizzy or lightheaded episodes * you have additional episodes of passing out * you have shortness of breath * you have chest pains * any other concerns It was our pleasure to care for you! Pending Studies at Discharge: No Stand-Alone Forms: My [facility] Publictivity, Smoking Cessation Medications and DC Order Prescriptions: Continued cyanocobalamin (vitamin B-12) [Vitamin B-12] 500 mcg tablet 500 mcg PO DAILY Qty: 30 0RF tramadol 50 mg tablet 50 mg PO Q8H PRN (Reason: pain (scale score 7-10)) Qty: 15 0RF aspirin 81 mg tablet,chewable 81 mg PO DAILY metoprolol succinate [Toprol XL] 25 mg tablet extended release 24 hr 25 mg PO DAILY ascorbic acid (vitamin C) 500 mg tablet 500 mg PO QAM famotidine 40 mg tablet 40 mg PO DAILY Qty: 30 0RF acetaminophen 500 mg Tablet 500 mg PO Q4H PRN (Reason: Pain) Hold Instructions: Patient currently taking 325mg 3 tablets q 6 hours x 4 days. Patient Comments: unknown strength rosuvastatin 40 mg tablet 40 mg PO HS multivitamin Tablet 1 tab PO QAM nitroglycerin 0.4 mg Tablet, Sublingual 0.4 mg Sublingual DIRECTED PRN (Reason: Chest Pain) Rx Instructions: PLACE ONE TABLET UNDER THE TONGUE EVERY 5 MINUTES FOR UP TO 3 DOSES OVER 15 MINUTES IF NEEDED FOR CHEST PAIN. isosorbide mononitrate 120 mg tablet extended release 24 hr 120 mg PO QAM omega [id number]-fish oil [Fish Oil] 1,000 mg (120 mg-180 mg) Capsule 1 cap PO QPM calcium carbonate [Calcium 500] 500 mg calcium (1,250 mg) Tablet 1,000 mg PO QAM docusate sodium 100 mg Capsule 100 mg PO BID Qty: 60 0RF lidocaine 5 % Adhesive Patch,Medicated 1 patch transdermal DAILY Qty: 15 0RF Discontinued amlodipine 5 mg tablet 5 mg PO PM No Action amlodipine 2.5 mg tablet 2.5 mg PO PM Qty: 90 3RF Discharge Orders: Discharge Order (Routine); Ordered 07/17/24 Ordered By: Dereje Cole/Other Patient Handouts: What Is Syncope Admission Data Admit Date/Time: 07/16/24 10:41 Attending Provider: Dereje Robert Admit Provider: Colin Gaviria Primary Care Provider: Que Mota Other Providers: Dereje Peralta; Kole Julian Other Interventions: Discharge Summary Assessment (RN) Last Done: 07/17/24 16:33 Hospital Stay Data Consultations [facility] Procedures Performed Echocardiogram: Diagnostic Imagining Performed Chest X-Ray 07/16/24 08:58 XR chest 1V portable HISTORY: Chest pain, nonspecific COMPARISON: Chest 05/04/2024. FINDINGS: No pneumothorax. No pleural effusions. No focal lung consolidations to suggest a pneumonia. No evidence for pulmonary edema. The cardiac silhouette is borderline enlarged. The left coronary artery stent and aortic valve prosthesis are again noted. There are calcifications within the thoracic aorta. No acute fractures. IMPRESSION: No significant change compared to the prior study. No acute process. ACT 112: Negative or not required by law. Electronically signed by: Carlos Manuel Elliott M.D. 07/16/2024 9:42 AM Carotid Doppler Study 07/17/24 12:33 ULTRASOUND OF THE CAROTID ARTERIES CLINICAL HISTORY: Carotid stenosis status post endarterectomy. Syncope. COMPARISON STUDY: Carotid artery ultrasound dated 05/15/2018. TECHNIQUE: Real-time, grayscale, and color Doppler sonography of the carotid arteries is performed. Images are reviewed in the transverse and longitudinal planes. FINDINGS: The carotid arteries are patent bilaterally and demonstrate antegrade flow. There is advanced atherosclerotic plaque seen in the left carotid bulb. A stent is seen in the right carotid system. The stent is patent. Normal doppler arterial waveforms are seen throughout. Velocity measurements are listed below. Common carotid peak systolic velocity (cm/sec): RIGHT: 55 LEFT: 56 ICA proximal peak systolic velocity (cm/sec): RIGHT: 50 LEFT: 99 ICA mid peak systolic velocity (cm/sec): RIGHT: 57 LEFT: 75 ICA distal peak systolic velocity (cm/sec): RIGHT: 65 LEFT: 89 ICA/CC peak systolic ratio: RIGHT: 1.2 LEFT: 1.8 Antegrade flow was shown in the vertebral arteries. The external carotid arteries are patent. IMPRESSION: 1. Atherosclerotic plaque with no sonographic evidence of hemodynamically significant stenosis in the right or left carotid arterial system. 2. A right carotid stent is patent. 3. Antegrade flow is shown in the vertebral arteries. ACT 112: Negative or not required by law. Electronically signed by: Colin Santana M.D. 07/17/2024 2:40 PM Pending Results Patient Have Any Pending Studies at Discharge: No Discharge Instructions Given to Patient (Per Discharging Provider) Mrs Palencia, You suffered an episode of syncope while at your [employer]. Syncope, also known as "passing out" or "fainting spell," has a variety of causes (see handout). In your case it was likely brought on by a drop in blood pressure with standing. When the blood pressure drops there is a temporary lack of blood flow to the brain which leads to feeling dizzy/lightheaded and, in many cases, passing out. You received some IV fluids and today, 07/17/24, your blood pressures with standing are better. The drop in blood pressure with standing was either due to being mildly dehydrated and/or due to blood pressure medicine. During the stay we did not find evidence of heart attack, abnormal heart rhythm, or infections. [facility] saw you in consult and recommends an outpatient heart monitor that you will wear at home. This will be to rule out abnormal heart rhythms as the cause of the event. Recommendations - 1. stay well-hydrated day to day 2. please check your blood pressure every day at home; write these in a notebook and show them to your family doctor & your associate professor of anthropology 3. please lower your amlodipine blood pressure medicine from 5mg (1 full tablet) to 2.5mg (HALF tablet) once daily; you can do this by using a pill cutter; simply cut the amlodipine in half Follow-up - see separate section Return to [facility] if - * you are having dizzy or lightheaded episodes * you have additional episodes of passing out * you have shortness of breath * you have chest pains * any other concerns It was our pleasure to care for you! Total Time Total Time Spent Total Time Spent (In Minutes): 40 Coding Level of Care Code 61455 INP/OBS DISCH >30 MIN Diagnoses Syncope R55 Chest pain R07.9 Aortic stenosis I35.0 Hyperlipidemia E78.5 Hypertension I10
[2024-07-17 16:34] VITALS: BP 122/75; PULSE 60
--- NOTE | 2024-07-18 05:39 | Electrocardiogram Report ---
Test Reason : Blood Pressure : */* mmHG Vent. Rate : 51 BPM Atrial Rate : 51 BPM P-R Int : 172 ms QRS Dur : 104 ms QT Int : 452 ms P-R-T Axes : 9 -11 51 degrees QTcB Int : 416 ms Sinus bradycardia Minimal voltage criteria for LVH, may be normal variant ( Almond product ) Septal infarct (cited on or before 15-Jun-2023) Inferior infarct , age undetermined Abnormal ECG When compared with ECG of 15-Jun-2023 08:24, QRS duration has increased Inferior infarct is now Present Questionable change in initial forces of Anteroseptal leads Confirmed by Joseph Meehan ([id number]) on 07/18/2024 5:39:18 AM Referred By: REFERRED SELF Confirmed By: Joseph Meehan
== END 2024-07-17 17:20 | disposition home or self-care (01) ==
LOC: ED 08:56 → EDINP 08:56 → SUATTDRO 10:41 → 2N 11:58